=== PATIENT | female | born 1940 | race Hispanic/Latino ===

== ENCOUNTER 2018-11-02 17:35 | Inpatient (IN) | payer MEDICARE ==
[~2018-11-02] VITALS: Ht 154.9 cm; Wt 109.3 kg
[~2018-11-02 17:35] MED LIST: ACETAMINOPHEN325 M1; ALLEGRA ALLERGY60 MG PO; ALPRAZOLAM0.5 MG PO; AMOXICILLIN250 MG PO; ASPIRIN PO; ASPIRIN81 MG PO; BENADRYL ALLERG25 MG PO; BENICAR HCT 201 EACH; BENICAR5 MG PO; BIOFLEX TABLET1 EACH PO; DICLOFENAC SODI50 MG PO; EFFIENT10 MG PO; FISH OIL PO; FLECTOR1 EACH PO; FLONASE; GLIMEPIRIDE2 MG PO; GLIPIZIDE ER2.5 MG PO; GLIPIZIDE5 MG PO; ISOSORBIDE MONO30 MG PO; LANTUS100 UNIT/1; LANTUS100 UNIT/1 SQ; LANTUS100 UNITS/; LANTUS100 UNITS/ SQ; LASIX40 MG PO; LEVAQUIN500 MG PO; LISINOPRIL20 MG PO; LOSARTAN POTAS100 MG PO; LOSARTAN-HCTZ1 EAC1 PO; LOSARTAN-HCTZ1 EACH PO; LYRICA50 MG PO; MEGARED PO; METFORMIN HCL500 MG PO; MONTELUKAST SOD10 MG PO; MVI PO; NITROGLYCERIN0.4 MG SL; NITROSTAT0.4 MG SL; POTASSIUM CHLO10 ME1 PO; PREDNISONE10 MG PO; SINGULAIR10 MG PO; TUMS200 MG PO; TURMERIC PO; VENTOLIN HFA18 GM INH
--- OUTSIDE RECORDS SUMMARY | 2018-11-02 17:38 | XMS REPORT ---
Author Author [facility] Address Unknown Phone Unavailable Care Team Providers Care Table Operator Name Role Phone Rafat ISABEL Unavailable Unavailable Problems This patient has no known problems. Allergies, Adverse Reactions, Alerts This patient has no known allergies or adverse reactions. Medications This patient has no known medications. Results Test Description Test Time Test Comments Text Results Atomic Results Result Comments FOOT LEFT COMPLETE [place] [address] Patient Name: GAURAV ESCOBEDO MR #: [id number] : 1940 Age/Sex: 76/F Req #: [id number] Adm Physician: Ordered by: LULA ISABEL MD Report #: [id number] Location: ER Room/Bed: Procedure: [id number] DX/FOOT LEFT COMPLETE Exam Date: 02/02/17 Exam Time: 1210 REPORT STATUS: Signed Left foot - 3 views HISTORY: Pain. COMPARISON: None available. FINDINGS: Bones: No acute displaced fracture. No expansile lytic or sclerotic lesion. Joints: The joint spaces are well-maintained. No dislocation. Soft tissues: The soft tissues appear unremarkable. IMPRESSION: No acute radiographic abnormality. Signed by: Dr. Ban Davis M.D. on 02/02/2017 12:31 PM Dictated By: BAN DAVIS MD 1231 Transcribed By: HA on 02/02/17 1231 COPY TO: LULA ISABEL MD ANKLE 3+ VIEWS LEFT [place] [address] Patient Name: GAURAV ESCOBEDO MR #: [id number] : 1940 Age/Sex: 76/F Req #: [id number] Adm Physician: Ordered by: LULA ISABEL MD Report #: [id number] Location: ER Room/Bed: Procedure: [id number] DX/ANKLE 3+ VIEWS LEFT Exam Date: 02/02/17 Exam Time: 1210 REPORT STATUS: Signed Left Ankle - 3 views HISTORY: Pain. COMPARISON: None available. FINDINGS: Bones: No acute displaced fracture. No expansile lytic or sclerotic lesion. Joints: The joint spaces are well- maintained. No dislocation. Soft tissues: The soft tissues appear unremarkable. IMPRESSION: No acute radiographic abnormality. Signed by: Dr. Ban Davis M.D. on 02/02/2017 12:32 PM Dictated By: BAN DAVIS MD 1232 Transcribed By: HA on 02/02/17 1232 COPY TO: LULA ISABEL MD
[2018-11-02] MEDS ORDERED: METHYLPREDNISOLONE SOD SUCC 125 MG/2ML VIAL IV ONE ×2 (17:45→18:45)
[2018-11-02] MEDS ORDERED: ALBUTEROL/IPRATROPIUM 3 ML NEB NEB ONE (17:45)
--- NOTE | 2018-11-02 18:37 | Diagnostic Imaging Report ---
EXAMINATION: CHEST SINGLE (PORTABLE) COMPARISON: None INDICATION: Shortness of breath for 2 weeks ^SOB ^[id number] ^1800 DISCUSSION: Frontal view of the chest obtained at 1807 hours. HEART AND MEDIASTINUM: The heart is enlarged LINES: None. LUNGS: Pulmonary vasculature is prominent. Lung volumes are diminished with bibasilar atelectasis or infiltrate. PLEURA: No pleural effusion or pneumothorax. BONES AND SOFT TISSUES: Nonspecific inferior subluxation of the right humeral head. This may be positional. No focal osseous lesion. The soft tissues are normal. IMPRESSION: Cardiomegaly and vascular congestion. Bibasilar atelectasis or infiltrate. Please correlate with PA and lateral chest x-ray if clinically feasible. Signed by: Dr. Moody Herrera MD on 11/02/2018 6:34 PM
[2018-11-02 18:58] LABS: BASOPHILS % 0.4 % (0.0-1.0); EOSINOPHILS # (AUTO) 0.3 (0.0-0.4); EOSINOPHILS % 2.4 % (0.0-6.0); HEMATOCRIT 38.1 % (34.2-44.1); HEMOGLOBIN 12.4 g/dL (12.0-16.0); LYMPHOCYTES # (AUTO) 3.2 (1.0-3.2); MEAN CORPUSCULAR HGB CONC 32.5 g/dL (31-35); MEAN CORPUSCULAR VOLUME 92.3 fL (81-99); MONOCYTES # (AUTO) 0.9 (0.2-0.8); MONOCYTES % 7.7 % (4.4-11.3); NEUTROPHILS # (AUTO) 6.7 (2.1-6.9); NEUTROPHILS % 60.1 % (38.7-80.0); PLATELET COUNT 131 x10e3/uL (140-360); RED BLOOD COUNT 4.13 x10e6/uL (3.6-5.1); RED CELL DISTRIBUTION WIDTH 13.9 % (11.7-14.4)
[2018-11-02] MEDS ORDERED: CEFTRIAXONE SOD 1 GM/NS 50 ML 50 ML IV SCH (19:15)
[2018-11-02 19:16] LABS: ALANINE AMINOTRANSFERASE 13 IU/L (0-55); ALBUMIN 3.5 g/dL (3.5-5.0); ALBUMIN/GLOBULIN RATIO 1.1 (0.8-2.0); ALKALINE PHOSPHATASE 77 IU/L (40-150); ANION GAP 17.1 mmol/L (8-16); BLOOD UREA NITROGEN 19 mg/dL (7-26); BUN/CREATININE RATIO 23 (6-25); CALCIUM 9.3 mg/dL (8.4-10.2); CARBON DIOXIDE 23 mmol/L (22-29); CHLORIDE 103 mmol/L (98-107); CREATINE KINASE 27 IU/L (29-168); CREATININE, SERUM 0.83 mg/dL (0.57-1.11); EST GLOMERULAR FILTRATION RATE > 60 ML/MIN (60-); GLUCOSE 228 mg/dL (74-118); POTASSIUM 4.1 mmol/L (3.5-5.1); SODIUM 139 mmol/L (136-145)
[2018-11-02] MEDS ORDERED: AZITHROMYCIN 500MG/NS 250 ML 250 ML IV SCH (19:30)
[2018-11-02] MEDS ORDERED: DOXYCYCLINE 100MG/NS 100ML 100 ML IV SCH (19:45)
[2018-11-02] MEDS ORDERED: CLONIDINE HCL0.2 MG PO (20:05)
[2018-11-02] MEDS ORDERED: DOXAZOSIN MESYLA2 MG PO (20:05)
[2018-11-02] MEDS ORDERED: AZITHROMYCIN250 MG PO (20:06)
[2018-11-02] MEDS ORDERED: CEPHALEXIN500 MG PO (20:06)
[2018-11-02] MEDS ORDERED: GLUCOSAMINE1000 MG PO (20:07)
[2018-11-02] MEDS: SODIUM CHLORIDE 0.9% 1000ML 1,000 ML IV SCH (20:16)
[2018-11-02] MEDS ORDERED: DEXTROSE 50% SYRINGE 50 ML IV PRN (20:30)
[2018-11-02] MEDS: LEVOFLOXACIN 500MG/D5W 100ML 100 ML IV SCH (21:55)
[2018-11-02] MEDS: INSULIN REGULAR, HUMAN 100 UNIT/1 ML 3ML VIAL SQ SCH (22:28)
--- NOTE | 2018-11-02 22:31 | NUR ---
SPOKE TO DR. CEVALLOS REGARDING PT BP READING 206/84. NEW ORDERS FOR BP MEDS RECEIVED.
[2018-11-02] MEDS: HYDRALAZINE HCL 25 MG TAB PO SCH (23:00)
[2018-11-02 23:09] VITALS: BP 206/84
[2018-11-02] MEDS ORDERED: GLUCOSAMINE CH1 EAC1 PO (23:23)
[2018-11-02] MEDS ORDERED: CINNAMON500 MG PO (23:23)
[2018-11-02] MEDS ORDERED: TURMERIC PO (23:23)
[2018-11-02] MEDS ORDERED: CENTRUM COMPLE1 EACH PO (23:23)
[2018-11-03] VITALS (7 sets, daily range): BP systolic 152–181; BP diastolic 65–77
[2018-11-03] MEDS: HYDRALAZINE HCL 20 MG/ML VIAL IV PRN (01:12)
[2018-11-03] MEDS ORDERED: XANAX0.25 MG PO (02:06)
[2018-11-03 03:23] LABS: CREATINE KINASE 50 IU/L (29-168)
[2018-11-03 03:27] LABS: BASOPHILS % 0.1 % (0.0-1.0); HEMATOCRIT 37.7 % (34.2-44.1); HEMOGLOBIN 12.7 g/dL (12.0-16.0); LYMPHOCYTES # (AUTO) 0.7 (1.0-3.2); LYMPHOCYTES % 8.3 % (18.0-39.1); MEAN CORPUSCULAR HEMOGLOBIN 30.4 pg (28-32); MEAN CORPUSCULAR HGB CONC 33.7 g/dL (31-35); MEAN CORPUSCULAR VOLUME 90.2 fL (81-99); MONOCYTES # (AUTO) 0.1 (0.2-0.8); MONOCYTES % 0.9 % (4.4-11.3); NEUTROPHILS # (AUTO) 7.8 (2.1-6.9); NEUTROPHILS % 90.1 % (38.7-80.0); PLATELET COUNT 196 x10e3/uL (140-360); RED BLOOD COUNT 4.18 x10e6/uL (3.6-5.1); RED CELL DISTRIBUTION WIDTH 13.6 % (11.7-14.4)
[2018-11-03 03:38] LABS: ALANINE AMINOTRANSFERASE 13 IU/L (0-55); ALBUMIN 3.5 g/dL (3.5-5.0); ALBUMIN/GLOBULIN RATIO 1.1 (0.8-2.0); ALKALINE PHOSPHATASE 65 IU/L (40-150); BLOOD UREA NITROGEN 14 mg/dL (7-26); BUN/CREATININE RATIO 20 (6-25); CALCIUM 9.4 mg/dL (8.4-10.2); CARBON DIOXIDE 24 mmol/L (22-29); CHLORIDE 100 mmol/L (98-107); CREATININE, SERUM 0.71 mg/dL (0.57-1.11); EST GLOMERULAR FILTRATION RATE > 60 ML/MIN (60-); GLUCOSE 220 mg/dL (74-118); SODIUM 133 mmol/L (136-145)
[2018-11-03] MEDS: CLONIDINE HCL 0.2 MG TAB PO SCH ×2 (04:50→12:16)
[2018-11-03] MEDS ORDERED: CLONIDINE HCL 0.2 MG TAB PO SCH (06:00)
[2018-11-03] MEDS: HYDRALAZINE HCL 25 MG TAB PO SCH ×3 (06:30→16:42)
--- NOTE | 2018-11-03 06:55 | Diagnostic Imaging Report ---
EXAMINATION: CHEST SINGLE (PORTABLE) INDICATION: Short of breath COMPARISON: None FINDINGS: AP view TUBES and LINES: None. LUNGS: Lungs are not well inflated. There is mild prominence of the central pulmonary vasculature, consistent with pulmonary venous congestion. PLEURA: No pleural effusion or pneumothorax. HEART AND MEDIASTINUM: The cardiomediastinal silhouette is mildly enlarged. Aortic arch calcifications. BONES AND SOFT TISSUES: No acute osseous lesion. Soft tissues are unremarkable. UPPER ABDOMEN: No free air under the diaphragm. IMPRESSION: Unchanged exam with mild cardiomegaly and pulmonary vascular congestion. Signed by: Tae Campo DO on 11/03/2018 6:52 AM
[2018-11-03] MEDS: ALBUTEROL/IPRATROPIUM 3 ML NEB NEB PRN ×2 (06:57→19:27)
--- NOTE | 2018-11-03 07:04 | NUR ---
H&P cc: sob HPI; 78yoF, PCP , developed sob, went to PCP, given 2 antibiotics, worse, so came to ED, found to have PNA. PMH: COPD, STEMI/CAD s/p stent, HTN, HLD, DM, GERD, former smoker PShx: Hysterectomy, ankle, cyst removal from breast, coronary stent, knee alleriges; see emr fh/Sh; ; quit cigs in 1993 meds; see MAR ROS no f/c/s/N/V/D/VALERA/vision changes/skin rash/back pain/dizziness V/S; revd PE: tired appearing anicteric ns1s2 Reduced BS; no w soft nt nd no e/t skin dry flat affect a&ox3; crowe labs/med revd A/P: PNA Former smoker COPD CAD with hx stent HTN HLD GERD DM- check hab1c/lipids pro; lovenox; pepcid dispo; Franklin Zamarripa MD, PhD
--- NOTE | 2018-11-03 07:17 | NUR ---
RECEIVED PATIENT AWAKE RESTING IN BED NO SIGNS OF DISTRESS. BED LOW, WHEELS LOCKED, SIDE RAILS X2. CALL LIGHT IN REACH WILL CONTINUE TO MONITOR PATIENT.
[2018-11-03 07:39] LABS: CHOL/HDL RATIO 3.5 (3.0-3.6)
[2018-11-03] MEDS: SODIUM CHLORIDE 0.9% 1000ML 1,000 ML IV SCH ×2 (08:34→21:54)
[2018-11-03] MEDS: FAMOTIDINE 20 MG TAB PO SCH ×2 (08:56→16:58)
[2018-11-03] MEDS: DOXAZOSIN MESYLATE 2 MG TAB PO SCH (08:56)
[2018-11-03] MEDS: MULTIVITAMINS/MINERALS TAB PO SCH (08:56)
[2018-11-03] MEDS: INSULIN REGULAR, HUMAN 100 UNIT/1 ML 3ML VIAL SQ SCH ×4 (08:59→21:05)
[2018-11-03] MEDS: ALPRAZOLAM 0.25 MG TAB PO SCH ×2 (08:59→21:15)
--- NOTE | 2018-11-03 09:15 | NUR ---
PATIENT A/O X3, EVEN RESPIRATIONS WHEN RESTING, SOB ON EXERTION. PATIENT ON 2LNC 98%. LUNG SOUNDS CLEAR TO AUSCULTATION. LEFT HAND [address] IV INTACT AND PATENT. TELEMETRY #4 SR. EDEMA TO BLE 1+. NO PAIN OR DISCOMFORT AT THIS TIME. NOTIFIED PATIENT TO CALL NURSE FOR ASSISTANCE. CALL LIGHT IN REACH WILL CONTINUE TO MONITOR PATIENT.
[2018-11-03 10:55] LABS: CREATINE KINASE MB 6.7 ng/mL (0-5.0)
--- NOTE | 2018-11-03 13:13 | NUR ---
ARACELIS FROM [facility] DISCHARGE PLANNING CALLED TO GET UPDATE ON PT SHE STATES IF ANY NEEDS FOR DISCHARGE PLANNING ASSISTANCE TO PLEASE CONTACT HER AT [phone]
--- NOTE | 2018-11-03 16:36 | NUR ---
MANUALLY CHECKED PATIENTS HR. PATIENTS HR 48-50. PAGED DR. CEVALLOS. ORDER TO D/C CLONIDINE AND NEW ORDER FOR ISOSORBIDE DINITRATE 10 MG Q12. NEW ORDERS IMPLEMENTED.
[2018-11-03] MEDS: ENOXAPARIN SOD INJ 40 MG/0.4 ML SYR SC SCH (16:58)
[2018-11-03] MEDS: LEVOFLOXACIN 500MG/D5W 100ML 100 ML IV SCH (16:58)
[2018-11-03] MEDS: FUROSEMIDE INJ 10 MG/ML 2 ML VIAL IV SCH (16:58)
[2018-11-03] MEDS: ISOSORBIDE DINITRATE 20 MG TAB PO SCH (17:09)
[2018-11-03] MEDS: INSULIN GLARGINE 100 UNITS/ML VIAL SQ SCH (21:05)
[2018-11-04] VITALS (8 sets, daily range): BP systolic 128–178; BP diastolic 54–74
[2018-11-04] MEDS: HYDRALAZINE HCL 25 MG TAB PO SCH ×5 (06:01→23:38)
[2018-11-04] MEDS: ISOSORBIDE DINITRATE 20 MG TAB PO SCH ×2 (06:02→17:09)
[2018-11-04] MEDS: INSULIN REGULAR, HUMAN 100 UNIT/1 ML 3ML VIAL SQ SCH ×4 (07:30→21:58)
--- NOTE | 2018-11-04 07:33 | NUR ---
IM- progress yaneli O/N no events ROS no f/c/s/N/V/D/VALERA/vision changes/skin rash/back pain/dizziness V/S; revd PE: tired appearing; Cough with deep inspiration anicteric ns1s2 Reduced BS; no w soft nt nd no e/t skin dry flat affect a&ox3; crowe labs/med revd A/P: PNA Former smoker COPD CAD with hx stent HTN HLD GERD DM- check hab1c/lipids pro; lovenox; pepcid dispo; Hba1c/LDL 7.2/120; mild bradycardia- stopped clonidine; use nitrate and hydralazine; control BP. Continue treatement for Bronchopneumonia- cough improving; remains on O2 for support; continue antibiotics; Franklin Zamarripa MD, PhD
[2018-11-04] MEDS: FUROSEMIDE INJ 10 MG/ML 2 ML VIAL IV SCH (09:18)
[2018-11-04] MEDS: FAMOTIDINE 20 MG TAB PO SCH ×2 (09:18→17:09)
[2018-11-04] MEDS: MULTIVITAMINS/MINERALS TAB PO SCH (09:20)
[2018-11-04] MEDS: DOXAZOSIN MESYLATE 2 MG TAB PO SCH (09:20)
[2018-11-04] MEDS: ALPRAZOLAM 0.25 MG TAB PO SCH (09:20)
--- NOTE | 2018-11-04 11:35 | NUR ---
PROVIDED YOUTH WALKER TO PATIENT OBTAINED SIGNATURES AND WILL RETURN GREEN FORM TO PACU
--- NOTE | 2018-11-04 14:18 | NUR ---
PT SIGNED CHOICE FOR LIVING [facility] WILL FAX CLINICALS TO COMPANY FOR DISCHARGE TOMORROW
[2018-11-04] MEDS: ENOXAPARIN SOD INJ 40 MG/0.4 ML SYR SC SCH (17:09)
[2018-11-04] MEDS: LEVOFLOXACIN 500MG/D5W 100ML 100 ML IV SCH (17:09)
--- NOTE | 2018-11-04 19:00 | NUR ---
RECEIVED PATIENT IN BEDSIDE REPORT. PATIENT SITTING IN CHAIR AT BEDSIDE. NO PAIN REPORTED. NO S&S OF DISTRESS NOTED. BED LOCKED IN LOWEST POSITION, SIDE RAILS UPX2, CALL LIGHT IN REACH.
[2018-11-04] MEDS: ASPIRIN 81 MG CHEW TAB PO SCH (21:32)
[2018-11-04] MEDS: INSULIN GLARGINE 100 UNITS/ML VIAL SQ SCH (21:58)
[2018-11-05] VITALS (8 sets, daily range): BP systolic 98–169; BP diastolic 50–74
--- NOTE | 2018-11-05 00:08 | NUR ---
PRODUCTION MINER CALLED AND STATED THAT THE PATIENT'S HEART RATE IS 42. UPON ASSESSMENT, THE PATIENT WAS SOUNDLY ASLEEP WITHOUT DISTRESS. SHE WAS WOKEN UP FOR CLOSE OBSERVATION AND HER HEART RATE INCREASE TO 58. BED ALARM ON, CALL LIGHT WITHIN EASY REACH, WILL NOTIFY THE PRIMARY NURSE TO CLOSELY MONITOR THE PATIENT.
--- NOTE | 2018-11-05 00:30 | NUR ---
PATIENT ASSISTED TO TOILET. WALKER USED, STEADY GAIT NOTED. RETURNED TO BED. BED LOCKED IN LOWEST POSITION, SIDE RAILS UPX2, CALL LIGHT IN REACH.
[2018-11-05] MEDS: HYDRALAZINE HCL 20 MG/ML VIAL IV PRN (04:23)
--- NOTE | 2018-11-05 05:34 | NUR ---
IM- progress yaneli O/N no events ROS no f/c/s/N/V/D/VALERA/vision changes/skin rash/back pain/dizziness V/S; revd PE: tired appearing; Cough with deep inspiration anicteric ns1s2 Reduced BS; no w soft nt nd no e/t skin dry flat affect a&ox3; crowe labs/med revd A/P: PNA Former smoker COPD CAD with hx stent HTN HLD GERD DM- check hab1c/lipids pro; lovenox; pepcid dispo; Hba1c/LDL 7.2/120; mild bradycardia- stopped clonidine; use nitrate and hydralazine; control BP. Continue treatement for Bronchopneumonia- cough improving; remains on O2 for support; continue antibiotics; 11/05 improving; elevated HR and low BP. Franklin Zamarripa MD, PhD
[2018-11-05] MEDS ORDERED: TESSALON PERLE100 MG PO (05:37)
[2018-11-05] MEDS ORDERED: LEVAQUIN500 MG PO (05:37)
[2018-11-05] MEDS ORDERED: ISOSORBIDE DINI20 MG PO (05:37)
[2018-11-05] MEDS ORDERED: HYDRALAZINE HCL25 MG PO (05:37)
[2018-11-05] MEDS: HYDRALAZINE HCL 25 MG TAB PO SCH ×3 (06:39→21:25)
[2018-11-05] MEDS: ISOSORBIDE DINITRATE 20 MG TAB PO SCH (06:39)
[2018-11-05] MEDS: INSULIN REGULAR, HUMAN 100 UNIT/1 ML 3ML VIAL SQ SCH ×4 (07:16→21:25)
[2018-11-05] MEDS: FAMOTIDINE 20 MG TAB PO SCH ×2 (07:45→17:23)
--- NOTE | 2018-11-05 08:36 | NUR ---
CALLED [facility] TO CONFIRM IF RECEIVED CLINICALS JOSE STATES HAVING PROBLEM AND TO PLEASE FAX TO [phone], FAXED.
--- NOTE | 2018-11-05 08:44 | NUR ---
KEY FROM [facility] CALLED THEY ARE NOT IN NETWORK WITH THIS PLAN, FAXED TO REACH PT 2ND CHOICE [phone]
[2018-11-05] MEDS: MULTIVITAMINS/MINERALS TAB PO SCH (09:10)
[2018-11-05] MEDS: FUROSEMIDE INJ 10 MG/ML 2 ML VIAL IV SCH (09:10)
[2018-11-05] MEDS: DOXAZOSIN MESYLATE 2 MG TAB PO SCH (09:10)
--- NOTE | 2018-11-05 15:40 | NUR ---
Discontinuing skilled PT services since patient is Mod I in functional mobility. Thank you Addendum: 11/05/18 at 1541 by Rolando casas PT Amended: Links added.
[2018-11-05] MEDS: ALPRAZOLAM 0.25 MG TAB PO SCH ×2 (16:20→22:31)
[2018-11-05] MEDS: LEVOFLOXACIN 500MG/D5W 100ML 100 ML IV SCH (17:23)
[2018-11-05] MEDS: ENOXAPARIN SOD INJ 40 MG/0.4 ML SYR SC SCH (17:23)
--- NOTE | 2018-11-05 19:24 | NUR ---
Bedside report walking rounds complete. Pt resting in bed and in no apparent distress. All safety measures ensured and pt call castillo near.
[2018-11-05] MEDS ORDERED: ACETAMINOPHEN 325 MG TAB PO PRN (20:30)
[2018-11-05] MEDS: ASPIRIN 81 MG CHEW TAB PO SCH ×2 (21:00→22:32)
[2018-11-05] MEDS: INSULIN GLARGINE 100 UNITS/ML VIAL SQ SCH (21:25)
--- NOTE | 2018-11-05 21:45 | NUR ---
Pt c/o severe headache. Tylenol 650mg po given. Pt started to cry and become anxious from headache. I advised pt to remain calm, breathe and give the medication time to work. Pt given ice pack and 02 2L NC placed. Will continue to monitor pt.
[2018-11-05] MEDS ORDERED: HYDRALAZINE HCL 25 MG TAB PO SCH (22:00)
--- NOTE | 2018-11-05 22:35 | NUR ---
Pt still c/o severe headache. Pt c/o SOB as well. Pt still on 2L NC and HOB elevated to 90 degrees. Pt states she has anxiety. Encouraged pt to remain calm and breathe to help with her headache and anxiety. I explained to pt that she also has to give the medication time to work. Informed charge nurse who also came to assess the pt. Pt given Xanax 0.25mg and additional ice pack for comfort. Pt has extensive allergies and unable to have many medications. Contacted Dr. Zamarripa to see if pt able to have anything else for headache and awaiting contact back. Will continue to monitor pt.
--- NOTE | 2018-11-05 22:39 | NUR ---
Cardiology Consult Dictation# [id number]
--- NOTE | 2018-11-06 00:10 | NUR ---
Pt states her headache is "better but still there a little". Pt states Xanax helped. Will continue to monitor pt.
[2018-11-06 00:13] VITALS: BP 161/56
[2018-11-06 04:02] VITALS: BP 122/58
--- NOTE | 2018-11-06 04:43 | Consultation ---
DATE OF CONSULTATION: 11/05/2018 Cardiology Consultation REQUESTING PHYSICIAN: Franklin Zamarripa MD. REASON FOR CONSULTATION: Hypertension and tachycardia. HISTORY OF PRESENT ILLNESS: This is a 78-year-old woman with history of diabetes mellitus, hypertension, hyperlipidemia, anxiety, and obesity, who presented to [facility] with complaints of shortness of breath. The patient reports that she has been having a sinus infection for the last two weeks. She developed shortness of breath on Friday and was seen by her primary physician and prescribed antibiotics. Her symptoms did not improve, so she presented to the ER for further evaluation. Chest x-ray revealed cardiomegaly and vascular congestion as well as bibasilar atelectasis or infiltrate. She was admitted to [facility] for treatment of pneumonia and started on IV antibiotics. The patient's blood pressure has been labile during admission and she was noted to become more tachycardic today for which Cardiology is consulted for evaluation and management. The patient denies any chest pain, but does endorse lower extremity edema as well as orthopnea and PND. REVIEW OF SYSTEMS: Negative except as per HPI. PAST MEDICAL HISTORY: 1. Coronary artery disease with prior stent. 2. Hypertension. 3. Hyperlipidemia. 4. Diabetes mellitus. 5. Anxiety. 6. Chronic obstructive pulmonary disease. 7. Obesity. PAST SURGICAL HISTORY: 1. Hysterectomy. 2. Ankle surgery. 3. Knee surgery. ALLERGIES: PLEASE SEE EMR. MEDICATIONS: Please see medication reconciliation. SOCIAL HISTORY: Prior smoker. FAMILY HISTORY: Noncontributory to current illness. PHYSICAL EXAMINATION: VITAL SIGNS: Temperature 98.4 degrees, pulse 104, respiratory rate 16, blood pressure 166/74, and oxygen saturation 95%. GENERAL: Obese woman, in no acute distress. Anxious appearing. HEENT: Normocephalic, atraumatic. Pupils equal. No scleral icterus. NECK: Supple. No thyromegaly or cervical lymphadenopathy. No carotid bruits. LUNGS: Clear to auscultation bilaterally. No wheezes or crackles. CARDIOVASCULAR: Normal rate, regular rhythm. No murmur. Normal S1, S2. ABDOMEN: Soft, nontender. EXTREMITIES: 1+ pitting edema. LABORATORY DATA: WBC 8.67, hemoglobin 12.7, hematocrit 37.7, and platelets 196. Sodium 132, potassium 4, chloride 100, CO2 of 24, BUN 14, and creatinine 0.71. EKG; sinus tachycardia, LVH with repolarization abnormality. Prior EKG, sinus bradycardia, cannot rule out anterior infarct, ST and T-wave abnormality, consider inferior ischemia. IMPRESSION: 1. Pneumonia. 2. Sinus tachycardia. 3. Hypertension, poorly controlled. 4. Coronary artery disease with prior stent. 5. Hypertension and hyperlipidemia. 6. Diabetes mellitus. 7. Anxiety. 8. Chronic obstructive pulmonary disease. 9. Obesity. RECOMMENDATIONS: Monitor the patient closely on telemetry. The patient's rhythm appears to be sinus tachycardia likely physiologic response to the patient's illness. We will continue to monitor closely. Titrate hydralazine given the patient's poor blood pressure control. The patient has multiple allergies to antihypertensive therapy in the past, which makes finding a good antihypertensive regimen difficult for the patient. Continue doxazosin for now. Increase hydralazine and assess response. BNP is elevated. Agree with continued IV diuresis. She would need to be transitioned to Lasix 40 mg p.o. daily upon discharge. Keep the patient off clonidine for now. Continue current cardiac medications otherwise. The patient has listed allergies to simvastatin and atorvastatin. Further discussion of cholesterol lowering medications as an outpatient. Thank you for this consult. We will continue to follow. MD CRYSTAL Mead/JADA /[id number] MTDLiliana
[2018-11-06] MEDS: HYDRALAZINE HCL 25 MG TAB PO SCH (06:34)
--- NOTE | 2018-11-06 06:48 | NUR ---
D/C SUMMARY PRINCIPAL DX PNA BRADYCARDIA- MILD SECONDARY DXFormer smoker COPD CAD with hx stent HTN HLD GERD DM- check hab1c/lipids pro; lovenox; pepcid dispo; Hba1c/LDL 7.2/120; mild bradycardia- stopped clonidine; use nitrate and hydralazine; control BP. Continue treatement for Bronchopneumonia- cough improving; remains on O2 for support; continue antibiotics; 11/05 improving; elevated HR and low BP. 11/06 d/c planning; D/C HOME STABLE F/U PCP 1 WEEK D/C>35MINS Franklin Zamarripa MD, PhD
[2018-11-06] MEDS ORDERED: FUROSEMIDE40 MG PO (06:52)
[2018-11-06] MEDS ORDERED: TRAMADOL HCL 50 MG TAB PO PRN (07:00)
[2018-11-06] MEDS ORDERED: ACETAMIN/BUTALBITAL/CAFFEINE TAB PO PRN (07:00)
--- NOTE | 2018-11-06 07:07 | NUR ---
RECEIVED PT LYING IN BED WITH EYES CLOSED, RESP EVEN AND UNLABORED. CALL LIGHT WITHIN REACH.
--- NOTE | 2018-11-06 07:26 | NUR ---
Bedside report and walking rounds complete with day shift RN
[2018-11-06] MEDS: INSULIN REGULAR, HUMAN 100 UNIT/1 ML 3ML VIAL SQ SCH ×2 (07:30→11:30)
[2018-11-06 07:36] VITALS: BP 117/50
[2018-11-06 07:45] VITALS: BP 117/50
[2018-11-06 07:54] LABS: BASOPHILS # (AUTO) 0.1 (0.0-0.1); BASOPHILS % 0.5 % (0.0-1.0); EOSINOPHILS # (AUTO) 0.3 (0.0-0.4); EOSINOPHILS % 3.2 % (0.0-6.0); HEMATOCRIT 37.3 % (34.2-44.1); HEMOGLOBIN 12.3 g/dL (12.0-16.0); LYMPHOCYTES # (AUTO) 2.4 (1.0-3.2); LYMPHOCYTES % 24.2 % (18.0-39.1); MONOCYTES % 9.6 % (4.4-11.3); NEUTROPHILS # (AUTO) 6.2 (2.1-6.9); NEUTROPHILS % 62.1 % (38.7-80.0); PLATELET COUNT 182 x10e3/uL (140-360); RED CELL DISTRIBUTION WIDTH 13.9 % (11.7-14.4)
[2018-11-06 08:09] LABS: ANION GAP 11.5 mmol/L (8-16); BLOOD UREA NITROGEN 23 mg/dL (7-26); BUN/CREATININE RATIO 32 (6-25); CALCIUM 9.2 mg/dL (8.4-10.2); CARBON DIOXIDE 28 mmol/L (22-29); CHLORIDE 104 mmol/L (98-107); CREATININE, SERUM 0.72 mg/dL (0.57-1.11); EST GLOMERULAR FILTRATION RATE > 60 ML/MIN (60-); GLUCOSE 113 mg/dL (74-118); POTASSIUM 4.5 mmol/L (3.5-5.1); SODIUM 139 mmol/L (136-145)
[2018-11-06] MEDS: MULTIVITAMINS/MINERALS TAB PO SCH (08:52)
[2018-11-06] MEDS: FUROSEMIDE INJ 10 MG/ML 2 ML VIAL IV SCH (08:52)
[2018-11-06] MEDS: FAMOTIDINE 20 MG TAB PO SCH (08:52)
[2018-11-06] MEDS: DOXAZOSIN MESYLATE 2 MG TAB PO SCH (08:52)
[2018-11-06] MEDS ORDERED: HYDRALAZINE HCL25 MG PO (10:33)
[2018-11-06] MEDS ORDERED: CARVEDILOL3.125 MG PO (10:34)
[2018-11-06] MEDS ORDERED: XARELTO20 MG PO (10:34)
--- NOTE | 2018-11-06 10:36 | NUR ---
SPOKE TO DILLON MOREJON TO D/C PATIENT HOME. (CARDIOLOGY) ALSO AGREED TO D/C PATIENT HOME.
[2018-11-06 11:39] VITALS: BP 149/66
--- NOTE | 2018-11-06 11:40 | Progress Note ---
DATE: 11/06/2018 Cardiology Progress Note SUBJECTIVE: The patient denies chest pain or shortness of breath. OBJECTIVE: VITAL SIGNS: Temperature 97 degrees, pulse 75, respiratory rate 15, blood pressure 117/50, oxygen saturation 93% on room air. GENERAL: Awake, alert, no acute distress. LUNGS: Clear to auscultation bilaterally. No wheezes or crackles. CARDIOVASCULAR: Normal rate, regular rhythm. No murmur. Normal S1, S2. ABDOMEN: Soft, nontender. EXTREMITIES: 1+ pitting edema. CARDIAC MEDICATIONS: Furosemide 20 mg IV daily, doxazosin 4 mg p.o. daily, hydralazine 50 mg p.o. t.i.d., aspirin 81 mg p.o. daily. LABORATORY DATA: WBC 10.02, hemoglobin 12.3, hematocrit 37.3, platelets 182. Sodium 139, potassium 4.5, chloride 104, CO2 of 28, BUN 23, creatinine 0.72. TELEMETRY: Normal sinus rhythm with PVCs, episode of atrial fibrillation with rapid ventricular response overnight. IMPRESSION: 1. Pneumonia. 2. Sinus tachycardia. 3. Paroxysmal atrial fibrillation with rapid ventricular response. 4. Hypertension, poorly controlled. 5. Coronary artery disease with prior stent. 6. Hypertension. 7. Hyperlipidemia. 8. Diabetes mellitus. 9. Anxiety. 10. Chronic obstructive pulmonary disease. 11. Obesity. RECOMMENDATIONS: The patient had atrial fibrillation with rapid ventricular response overnight. However, the patient has allergies documented to metoprolol and verapamil. We will attempt carvedilol. She was not able to state what her allergy to metoprolol was. We will monitor closely. The patient's CHADS-VASc score is elevated. Start Xarelto for CVA prophylaxis. Given addition of carvedilol, we will decrease hydralazine, keep patient on doxazosin. Continue current cardiac medications for now. The patient has allergies listed to simvastatin and atorvastatin. Further discussion of cholesterol lowering medications as an outpatient. She also describes carotid artery disease, further evaluation as an outpatient. Please have the patient follow up with Dr. Bouren in two weeks. Thank you for this consult. We will continue to follow. Cyndi Murphy MD ABS/MODL /[id number]
--- NOTE | 2018-11-06 12:50 | NUR ---
EDUCATED ABOUT IMM, SIGNED, FILED IN CHART, WITH COPY LEFT WITH FAMILY AT BEDSIDE.
--- NOTE | 2018-11-06 13:00 | NUR ---
PIV REMOVED WITH TIP INTACT. RX, ALL PERSONAL BELONGINGS AND D/C INSTRUCTIONS IN HAND AT TIME OF D/C. ESCORTED VIA WC TO FRONT LOBBY DOOR WHERE AWAITED IN PRIVATE AUTO, SAFELY TRANSFERRED INTO AUTO.
[2018-11-06] MEDS ORDERED: HYDRALAZINE HCL 25 MG TAB PO SCH (15:00)
[2018-11-06] MEDS ORDERED: RIVAROXABAN 20 MG TABLET PO SCH (17:00)
[2018-11-06] MEDS ORDERED: CARVEDILOL 3.125 MG TAB PO SCH (17:00)
== END 2018-11-06 13:00 | disposition home health service (06) | DRG 194 ==
LOC: ER 17:35 → ERHOLD 19:45 → INTOOBSV 19:45 → MED/SURG 21:07 → OBSVTOIN 11-04 08:02
PROVIDERS: ADMIT Internal Medicine; ATTEND Internal Medicine
DX: J18.9 Pneumonia, unspecified organism (principal); Z68.41 Body mass index [BMI] 40.0-44.9, adult; J44.0 Chronic obstructive pulmonary disease with (acute) lower respiratory infection; I25.10 Atherosclerotic heart disease of native coronary artery without angina pectoris; I10 Essential (primary) hypertension; I25.2 Old myocardial infarction; Z95.5 Presence of coronary angioplasty implant and graft; K21.9 Gastro-esophageal reflux disease without esophagitis; Z87.891 Personal history of nicotine dependence; E78.5 Hyperlipidemia, unspecified; E11.9 Type 2 diabetes mellitus without complications; F41.9 Anxiety disorder, unspecified; E66.01 Morbid (severe) obesity due to excess calories; I48.0 Paroxysmal atrial fibrillation; Z79.01 Long term (current) use of anticoagulants; R00.1 Bradycardia, unspecified
CPT/HCPCS: 36415; 71045; 80048; 80053; 80061; 82550; 82553; 82948; 83036; 83735; 83880; 84484; 85025; 93005; 94640; 96372; 97139; 99284; G0378; J0360; J1650; J1815; J1817; J1940; J1956; J2930; J7030

== ENCOUNTER 2018-11-16 20:03 | Inpatient (IN) | payer MEDICARE ==
[~2018-11-16] VITALS: Ht 152.4 cm; Wt 107.7 kg
[~2018-11-16 20:03] MED LIST changes: +AZITHROMYCIN250 MG PO; +CARVEDILOL3.125 MG PO; +CENTRUM COMPLE1 EACH PO; +CEPHALEXIN500 MG PO; +CINNAMON500 MG PO; +CLONIDINE HCL0.2 MG PO; +DOXAZOSIN MESYLA2 MG PO; +FUROSEMIDE40 MG PO; +GLUCOSAMINE CH1 EAC1 PO; +GLUCOSAMINE1000 MG PO; +HYDRALAZINE HCL25 MG PO; +ISOSORBIDE DINI20 MG PO; +TESSALON PERLE100 MG PO; +XANAX0.25 MG PO; +XARELTO20 MG PO
[2018-11-16 20:42] LABS: BASOPHILS # (AUTO) 0.1 (0.0-0.1); BASOPHILS % 0.2 % (0.0-1.0); LYMPHOCYTES % 11.9 % (18.0-39.1); MEAN CORPUSCULAR HEMOGLOBIN 30.6 pg (28-32); MEAN CORPUSCULAR HGB CONC 32.8 g/dL (31-35); MEAN CORPUSCULAR VOLUME 93.4 fL (81-99); MONOCYTES % 3.8 % (4.4-11.3); NEUTROPHILS # (AUTO) 20.2 (2.1-6.9); NEUTROPHILS % 81.4 % (38.7-80.0); PLATELET COUNT 208 x10e3/uL (140-360); RED BLOOD COUNT 1.96 x10e6/uL (3.6-5.1); RED CELL DISTRIBUTION WIDTH 14.3 % (11.7-14.4)
[2018-11-16 20:47] LABS: HEMATOCRIT 18.3 % (34.2-44.1)
[2018-11-16 21:00] LABS: ALANINE AMINOTRANSFERASE 9 IU/L (0-55); ALBUMIN 2.9 g/dL (3.5-5.0); ALBUMIN/GLOBULIN RATIO 1.3 (0.8-2.0); ALKALINE PHOSPHATASE 40 IU/L (40-150); BLOOD UREA NITROGEN 52 mg/dL (7-26); BUN/CREATININE RATIO 60 (6-25); CALCIUM 9.2 mg/dL (8.4-10.2); CARBON DIOXIDE 17 mmol/L (22-29); CHLORIDE 104 mmol/L (98-107); CREATINE KINASE 16 IU/L (29-168); CREATININE, SERUM 0.86 mg/dL (0.57-1.11); EST GLOMERULAR FILTRATION RATE > 60 ML/MIN (60-); GLUCOSE 311 mg/dL (74-118); SODIUM 135 mmol/L (136-145)
[2018-11-16] MEDS ORDERED: SODIUM CHLORIDE 0.9% 250ML 250 ML IV ONE (21:00)
--- NOTE | 2018-11-16 21:05 | NUR ---
PT TO ED RM #6, ATTACHED TO BS/COMPLIANCE CONSULTANT; PT NOW REPORTS BLACK STOOL X2 DAYS
--- NOTE | 2018-11-16 21:10 | NUR ---
CONSENT OBTAINED FOR PICC LINE AND TRANSFUSION OF BLOOD PRODUCTS
[2018-11-16 21:22] LABS: BILIRUBIN,URINE NEGATIVE (NEGATIVE); CLARITY,URINE SL CLOUDY (CLEAR); COLOR,URINE YELLOW (YELLOW); KETONES,URINE TRACE (NEGATIVE); LEUKOCYTE ESTERASE ,URINE NEGATIVE (NEGATIVE); NITRITE,URINE NEGATIVE (NEGATIVE); PROTEIN,URINE DIPSTICK NEGATIVE (NEGATIVE); URINE UROBILINOGEN 0.2 mg/dL (0.2 - 1)
--- NOTE | 2018-11-16 21:22 | Diagnostic Imaging Report ---
EXAMINATION: CHEST SINGLE (PORTABLE) COMPARISON: Chest x-ray 11/03/2018 INDICATION: ^sob, chest pain ^20181116 ^2030 ^Y DISCUSSION: Frontal view of the chest obtained at 2048 hours. HEART AND MEDIASTINUM: The heart is enlarged. The aorta is tortuous LINES: None. LUNGS: The lungs are well inflated and clear. Mild central pulmonary vascular prominence is similar. PLEURA: No pleural effusion or pneumothorax. Stable eventration of the right diaphragm. BONES AND SOFT TISSUES: No focal osseous lesion. The soft tissues are normal. IMPRESSION: Stable cardiomegaly and pulmonary venous hypertension. No acute cardiopulmonary process. Signed by: Dr. Moody Herrera MD on 11/16/2018 9:19 PM
[2018-11-16 21:30] LABS: LYMPHOCYTES % (MANUAL) 7 % (19-48); METAMYELOCYTES % (MANUAL) 1 % (0-0); MONOCYTES % (MANUAL) 1 % (3.4-9.0); NEUTROPHILS % (MANUAL) 91 % (40-74)
[2018-11-16 21:31] LABS: HYPOCHROMASIA SLIGHT; PLATELET ESTIMATE ADEQUATE; PLATELET MORPHOLOGY COMMENT FEW LARGE; RBC MORPHOLOGY COMMENT NORMAL
[2018-11-16 21:34] LABS: AMORPHOUS SEDIMENT,URINE MODERATE (FEW); BACTERIA,URINE FEW /HPF
--- NOTE | 2018-11-16 21:44 | NUR ---
PICC NURSE AT BEDSIDE
[2018-11-16] MEDS ORDERED: ACETAMINOPHEN 1000 MG/100 ML IV STA (22:22)
--- NOTE | 2018-11-16 22:37 | Diagnostic Imaging Report ---
EXAMINATION: CHEST XRAY LINE PLACEMENT COMPARISON: Chest x-ray 2047 hours INDICATION: ^EVAL PICC PLACEMENT ^20181116 ^0 ^Y DISCUSSION: Frontal view of the chest obtained at 2217 hours. HEART AND MEDIASTINUM: Stable cardiomegaly and tortuous aorta LINES: Right PICC line terminates in the SVC without pneumothorax. LUNGS: Minimal bibasilar atelectasis. No interstitial edema. No pneumonia or pulmonary edema. PLEURA: No pleural effusion or pneumothorax. BONES AND SOFT TISSUES: Stable. IMPRESSION: Right PICC line terminates in the SVC without pneumothorax. No new cardiopulmonary findings. Signed by: Dr. Moody Herrera MD on 11/16/2018 10:33 PM
[2018-11-16] MEDS ORDERED: SODIUM CHLORIDE 0.9% 500ML 500 ML ONE (22:39)
--- NOTE | 2018-11-16 22:40 | NUR ---
VERBAL ORDER FROM DR ABDIRIZAK CARRANZA TO USE PICC LINE
[2018-11-16 23:05] LABS: INR 1.49; PROTHROMBIN TIME 18.6 seconds (11.9-14.5)
--- NOTE | 2018-11-16 23:30 | NUR ---
FIRST UNIT OF BLOOD STARTED
--- NOTE | 2018-11-16 23:35 | Diagnostic Imaging Report ---
CT Abdomen and Pelvis without contrast INDICATION: ^BLACK STOOL, ANEMIA, 24K WBC ^Y TECHNIQUE: Thin collimation axial images obtained from the diaphragm to the level of the pubic symphysis without nonionic intravenous contrast. Dose reduction techniques used: Automated exposure control, adjustment of the mAs and/or kVp according to patient size, standardized low-dose protocol, and/or iterative reconstruction technique. RADIATION DOSE: Total DLP: 846.7 mGy*cm Estimated effective dose: (DLP x 0.015 x size factor) mSv CTDIvol has been reviewed. It is below the limits set by the Radiation Protocol Committee (RPC). COMPARISON: None. ABDOMEN FINDINGS: Lung Bases: The heart is enlarged with calcifications of the coronary arteries and aortic valve. Noncalcified nodule in the right middle lobe measures 3 mm. There is bibasilar atelectasis. The descending thoracic aorta is tortuous with mural calcifications throughout. The chowdhury of the heart are visible suggestive of anemia. Liver: Normal in attenuation without soft tissue mass. Punctate calcification in the dome suggestive of a granuloma. Gallbladder: Present and appears normal. No ductal dilatation. Pancreas: Normal attenuation without mass. Spleen: Normal size without mass. Adrenal Glands: No evidence for mass. Kidneys: Right: No renal calculus. No cortical mass or hydronephrosis Left: No renal calculus. No cortical mass or hydronephrosis Lymph Nodes: No enlarged abdominal or periaortic lymph nodes. Aorta: Normal in diameter and diffusely calcified PELVIS FINDINGS: Bowel: Stomach: Normal. Small Bowel: Normal in caliber with normal wall thickness. Large Bowel: Diffuse diverticulosis, particularly of the descending colon and sigmoid colon. No associated inflammation. No significant burden of stool in the large bowel. Appendix: Normal. Bladder: Well distended. There is a droplet of nondependent air at the dome. No mural thickening. Ureters: No ureteral dilatation or calculus.. The uterus is absent. No adnexal mass. Peritoneum/retroperitoneum: No free fluid or fluid collection. Bones: Degenerative changes of the spine. No compression deformities. No lytic or blastic lesions. Soft tissues: Unremarkable. IMPRESSION: 1. Diverticulosis coli. No evidence of acute diverticulitis on this unenhanced CT. 2. No evidence of inflammation loculated fluid collection to suggest abscess. 3. Droplet of nondependent air in the bladder may be the result of interpretation. 4. Atherosclerosis. Suspected anemia. Signed by: Dr. Moody Herrera MD on 11/16/2018 11:31 PM
[2018-11-17] VITALS (12 sets, daily range): BP systolic 113–151; BP diastolic 35–59
[2018-11-17] MEDS ORDERED: ONDANSETRON HCL INJ 2MG/ML 2ML 2 MG/ML VIAL IV PRN (00:15)
[2018-11-17] MEDS ORDERED: DEXTROSE 50% SYRINGE 50 ML IV PRN (00:15)
[2018-11-17] MEDS ORDERED: SODIUM CHLORIDE FLUSH 10 ML SYR INJ PRN (00:15)
[2018-11-17] MEDS: SODIUM CHLORIDE 0.9% 1000ML 1,000 ML IV SCH ×3 (01:31→20:15)
--- NOTE | 2018-11-17 02:04 | NUR ---
Report received from WILLIAM Mann. Patient admitted in unit @0039 by stretcher, Patient alert/oriented x3. Denied pain and on SOB. No respiratory distress noted. Patient continued on 2liters oxygen via nasal canula,Spo2 maintained 100%. Respiration even and unlabored. Patient continued transfusing I unit of blood. Head to toe assessment completed. No skin breakdown noted. Bed in lower position,locked. Call castillo within the reach. Patient instructed to call for help as needed, patient verbalized and understand. Will continue to monitor.
[2018-11-17] MEDS: LEVOFLOXACIN 500MG/D5W 100ML 100 ML IV SCH (02:15)
[2018-11-17] MEDS: FUROSEMIDE INJ 10 MG/ML 2 ML VIAL IV PRN ×2 (02:42→05:56)
[2018-11-17] MEDS ORDERED: SODIUM CHLORIDE 0.9% 250ML 250 ML ONE ×2 (03:31→22:30)
--- NOTE | 2018-11-17 06:48 | NUR ---
H&P cc: sob HPI; 78yoF, PCP , started on xarelto for PAF in Oct 2018, now with fatigue, found to have severe anemia and Pos stool occult blood. PMH: COPD, STEMI/CAD s/p stent, HTN, HLD, DM2, GERD, former smoker, PNA, PAF PShx: Hysterectomy, ankle, cyst removal from breast, coronary stent, knee alleriges; see emr fh/Sh; ; quit cigs in 1993 meds; see MAR ROS no f/c/s/N/V/D/VALERA/vision changes/skin rash/back pain/dizziness V/S; revd PE: tired appearing anicteric ns1s2 Reduced BS; no w soft nt nd no e/t skin dry flat affect a&ox3; crowe labs/med revd A/P: Severe anemia- hold xarelto; ppi; GI consult; GIB- ppi; gi consult; Leukocytosis- empiric levaquin; multiple allergies PAF- BB; no AC at this time Former smoker COPD- O2 prn CAD with hx stent- BB Hypertensive heart ds HLD GERD DM2- check hab1c/lipids; insulin pro; SCD; ppi dispo; GI consult; ppi Franklin Zamarripa MD, PhD
--- NOTE | 2018-11-17 07:12 | NUR ---
Report given to oncoming nurse,walking round done.
[2018-11-17] MEDS: INSULIN REGULAR, HUMAN 100 UNIT/1 ML 3ML VIAL SQ SCH ×4 (07:30→21:12)
[2018-11-17] MEDS: PANTOPRAZOLE 40 MG 10ML VIAL IV SCH ×2 (08:34→16:38)
[2018-11-17] MEDS: FERROUS SULFATE 325 MG TAB PO SCH ×2 (08:34→16:40)
[2018-11-17] MEDS ORDERED: MORPHINE SULFATE 2 MG/ML SYR 1ML IV PRN (09:30)
[2018-11-17] MEDS: ACETAMINOPHEN 1000 MG/100 ML IV PRN ×2 (09:47→18:00)
[2018-11-17] MEDS: CARVEDILOL 3.125 MG TAB PO SCH ×2 (09:47→16:38)
[2018-11-17 12:13] LABS: HEMOGLOBIN 7.3 g/dL (12.0-16.0)
[2018-11-17 12:16] LABS: HEMATOCRIT 21.3 % (34.2-44.1)
[2018-11-17 12:30] LABS: CHOL/HDL RATIO 4.7 (3.0-3.6)
--- NOTE | 2018-11-17 13:50 | NUR ---
Visit made by the Spiritual Care Department Pastoral Visitor, Yani Muhammad. Pt sleeping soundly and no family present. Pastoral Visitor left a card describing availability of motor driver and instructions on how to contact a motor driver. CHARLES ZAFAR Legal Recruiter Spiritual Care Department O: [phone] Pager: [phone] ([phone] number calling from)
--- NOTE | 2018-11-17 15:16 | NUR ---
PT LEAVING FOR PROCEDURE
[2018-11-17] MEDS: SUCRALFATE 1 GM/10 ML SUSP NG SCH ×2 (16:38→21:11)
[2018-11-17] MEDS ORDERED: LIDOCAINE HCL 2% LOCAL INJ 5 ML SDV VIAL INJ ONE (17:44)
[2018-11-17] MEDS ORDERED: PROPOFOL IV EMULSION 10 MG/ML 50 ML VIAL ONE (17:44)
[2018-11-17 19:27] LABS: HEMATOCRIT 20.4 % (34.2-44.1); HEMOGLOBIN 6.8 g/dL (12.0-16.0)
--- NOTE | 2018-11-17 20:15 | NUR ---
Called Dr. Cai. Notified about critical labs Hgb:6.8 MD ordered II units of blood transfusion at this time.
[2018-11-17] MEDS: INSULIN GLARGINE 100 UNITS/ML VIAL SQ SCH (21:12)
[2018-11-17] MEDS: ALPRAZOLAM 0.25 MG TAB PO SCH (21:13)
[2018-11-17] MEDS ORDERED: SODIUM CHLORIDE 0.9% 250ML 250 ML IV NR (21:30)
--- NOTE | 2018-11-17 22:13 | NUR ---
Patient assisted to used bedside commode. Patient tolerated well, No SOB Noted. Assisted to wipe whole body with CHG wipe and changed gown/linen and pads at this time. Will continue to monitor.
--- NOTE | 2018-11-17 22:30 | NUR ---
Transfusing I unit of blood at this time. No reaction noted, patient tolerated well. Will continue to monitor.
[2018-11-18] VITALS (7 sets, daily range): BP systolic 97–150; BP diastolic 30–70
[2018-11-18] MEDS: FUROSEMIDE INJ 10 MG/ML 2 ML VIAL IV PRN ×2 (01:19→06:30)
[2018-11-18] MEDS: LEVOFLOXACIN 500MG/D5W 100ML 100 ML IV SCH ×2 (01:19→23:55)
[2018-11-18] MEDS ORDERED: SODIUM CHLORIDE 0.9% 250ML 250 ML ONE (02:53)
--- NOTE | 2018-11-18 03:00 | NUR ---
Transfusing II unit of blood at this time. No reaction noted, patient tolerated well. Will continue to monitor.
--- NOTE | 2018-11-18 06:09 | NUR ---
IM- progress note O/N no events ROS no f/c/s/N/V/D/VALERA/vision changes/skin rash/back pain/dizziness V/S; revd PE: tired appearing anicteric ns1s2 Reduced BS; no w soft nt nd no e/t skin dry flat affect a&ox3; crowe labs/med revd A/P: Severe anemia- hold xarelto; ppi; GI consult; GIB- ppi; gi consult; Leukocytosis- empiric levaquin; multiple allergies PAF- BB; no AC at this time Former smoker COPD- O2 prn CAD with hx stent- BB Hypertensive heart ds HLD GERD DM2- check hab1c/lipids; insulin pro; SCD; ppi dispo; GI consult; ppi 11/18 s/p 4 U PRBC; f/u repeat labs; Hba1c/LDL 6.3/60; EGD showed gastritis, and gatric ulcers, esophageal ulcers, Hiatal hernia Franklin Zamarripa MD, PhD
[2018-11-18] MEDS ORDERED: ONDANSETRON HCL 4 MG ORAL DISINTEGRATING TAB PO PRN (07:00)
--- NOTE | 2018-11-18 07:00 | NUR ---
Pt received resting in bed. Alert and oriented x4, on 2L NC. Oriented to staff and surroundings. Encouraged to press call castillo if help needed. Pt verbalized understanding of teaching. Call castillo within reach. Will monitor
--- NOTE | 2018-11-18 07:04 | NUR ---
Report given to oncoming nurse, walking round done.
--- NOTE | 2018-11-18 08:03 | Operative Report ---
DATE OF PROCEDURE: 11/17/2018 SURGEON: Itz Cai MD PROCEDURE: EGD with biopsies. INDICATIONS FOR EGD: Anemia, melena. MEDICATION: The patient was done under MAC, please see anesthesiologist's note. PROCEDURE IN DETAIL: With the patient in left lateral decubitus position, a flexible fiberoptic Olympus gastroscope was introduced into the esophagus under direct visualization without any difficulty. There were some patchy erythema noted in distal esophagus. The scope was then advanced with ease into the stomach traversing a small hiatal hernia. Multiple ulcers were noted in the body of the stomach as well as in the fundus and somewhere with stigmata of recent hemorrhage, but there was no active bleeding. Biopsies were obtained. An approximately 1 cm submucosal nodule was noted in the upper body anterior wall and that was biopsied. Several minute ulcers were also noted in the antrum without active bleeding or stigmata of recent hemorrhage. The pylorus was intubated with ease and the scope was advanced all the way to the second portion of the duodenum. Mucosa overlying the proximal second portion appeared to be within normal limits. There were several minute ulcers noted in the duodenal bulb without active bleeding or stigmata of recent hemorrhage. The scope was then withdrawn back into the stomach and retroflexed and previously described ulcers in the fundus were also noted. The scope was then straightened out, it was subsequently withdrawn. The patient tolerated the procedure well. IMPRESSION: 1. Distal esophagitis. 2. Small sliding hiatal hernia. 3. Gastric ulcers, multiple, body and antrum some with stigmata of recent hemorrhage. Biopsies obtained. 4. Approximately 1 cm submucosal nodule, upper body anterior wall, biopsied. 5. Duodenal ulcers, bulb, several, minute without active bleeding. PLAN: Follow up histology. Continue current therapy. Initiate GI soft diet. Itz Cai MD [facility] [place]/MODL /[id number] cc: Franklin Zamarripa MD
[2018-11-18] MEDS: INSULIN REGULAR, HUMAN 100 UNIT/1 ML 3ML VIAL SQ SCH ×4 (08:04→20:09)
[2018-11-18] MEDS: SODIUM CHLORIDE 0.9% 1000ML 1,000 ML IV SCH (08:35)
[2018-11-18] MEDS: CARVEDILOL 3.125 MG TAB PO SCH ×2 (08:35→16:34)
[2018-11-18] MEDS: SUCRALFATE 1 GM/10 ML SUSP NG SCH ×4 (08:35→20:18)
[2018-11-18] MEDS: PANTOPRAZOLE 40 MG 10ML VIAL IV SCH (08:35)
[2018-11-18] MEDS: FERROUS SULFATE 325 MG TAB PO SCH ×2 (08:35→16:34)
--- NOTE | 2018-11-18 08:35 | NUR ---
All meds given as ordered. Call castillo within reach. Will monitor
[2018-11-18 08:47] LABS: HEMATOCRIT 28.7 % (34.2-44.1); HEMOGLOBIN 9.5 g/dL (12.0-16.0)
[2018-11-18 10:54] LABS: ALANINE AMINOTRANSFERASE 19 IU/L (0-55); ALBUMIN/GLOBULIN RATIO 1.3 (0.8-2.0); ALKALINE PHOSPHATASE 43 IU/L (40-150); ANION GAP 12.3 mmol/L (8-16); BLOOD UREA NITROGEN 20 mg/dL (7-26); BUN/CREATININE RATIO 26 (6-25); CALCIUM 8.3 mg/dL (8.4-10.2); CARBON DIOXIDE 26 mmol/L (22-29); CHLORIDE 100 mmol/L (98-107); CREATININE, SERUM 0.78 mg/dL (0.57-1.11); EST GLOMERULAR FILTRATION RATE > 60 ML/MIN (60-); GLUCOSE 192 mg/dL (74-118); POTASSIUM 3.3 mmol/L (3.5-5.1); SODIUM 135 mmol/L (136-145)
--- NOTE | 2018-11-18 12:31 | NUR ---
IMM EXPLAINED TO PT, SIGNED BY PT AND ON CHART COPY TO PT IN CARE TRANSITIONS FOLDER
[2018-11-18 13:12] LABS: HEMATOCRIT 27.2 % (34.2-44.1)
--- NOTE | 2018-11-18 13:39 | NUR ---
Pt c/o "burning in my stomach." Dr. Antonio Cai notified, and Protonix drip ordered. Will follow up
[2018-11-18] MEDS ORDERED: POTASSIUM CHLORIDE 10MEQ EA PO ONE (13:47)
[2018-11-18] MEDS: PANTOPRAZOL 40MG/SOD CHL 0.9% 50 ML IV SCH ×2 (14:13→21:27)
[2018-11-18] MEDS ORDERED: DONNATAL/LIDOCAINE/MAALOX 30 ML SUSP PO ONE (16:06)
[2018-11-18] MEDS: ALPRAZOLAM 0.25 MG TAB PO SCH (16:34)
--- NOTE | 2018-11-18 16:34 | NUR ---
Pt still c/o pain to stomach burning. Dr. Cai called. GI cocktail & Xanax given. Will follow up
--- NOTE | 2018-11-18 17:20 | NUR ---
Pt c/o relief of stomach pain. Call castillo within reach. Will monitor
[2018-11-18 18:24] LABS: HEMATOCRIT 28.2 % (34.2-44.1); HEMOGLOBIN 9.5 g/dL (12.0-16.0)
--- NOTE | 2018-11-18 19:11 | NUR ---
Handoff given to oncoming shift. Pt resting in bed. Call castillo within reach.
[2018-11-18] MEDS: INSULIN GLARGINE 100 UNITS/ML VIAL SQ SCH (20:16)
--- NOTE | 2018-11-19 02:09 | NUR ---
dr Wendy Cai came to see patient in the room. the MD ordered GI cocktail PO q6 PRN for abdominal pain. order carried out.
[2018-11-19] MEDS ORDERED: DONNATAL/LIDOCAINE/MAALOX 30 ML SUSP PO PRN (02:15)
[2018-11-19] MEDS: SODIUM CHLORIDE 0.9% 1000ML 1,000 ML IV SCH ×3 (02:15→17:34)
[2018-11-19 02:47] LABS: BASOPHILS % 0.3 % (0.0-1.0); EOSINOPHILS # (AUTO) 0.5 (0.0-0.4); EOSINOPHILS % 3.5 % (0.0-6.0); HEMATOCRIT 25.9 % (34.2-44.1); HEMOGLOBIN 8.5 g/dL (12.0-16.0); LYMPHOCYTES # (AUTO) 2.5 (1.0-3.2); LYMPHOCYTES % 18.5 % (18.0-39.1); MEAN CORPUSCULAR HEMOGLOBIN 29.5 pg (28-32); MEAN CORPUSCULAR HGB CONC 32.8 g/dL (31-35); MEAN CORPUSCULAR VOLUME 89.9 fL (81-99); MONOCYTES # (AUTO) 0.9 (0.2-0.8); MONOCYTES % 6.7 % (4.4-11.3); NEUTROPHILS # (AUTO) 9.5 (2.1-6.9); NEUTROPHILS % 69.7 % (38.7-80.0); PLATELET COUNT 144 x10e3/uL (140-360); RED BLOOD COUNT 2.88 x10e6/uL (3.6-5.1); RED CELL DISTRIBUTION WIDTH 18.3 % (11.7-14.4)
[2018-11-19] MEDS: PANTOPRAZOL 40MG/SOD CHL 0.9% 50 ML IV SCH ×5 (03:54→22:49)
[2018-11-19 04:19] VITALS: BP 128/61
--- NOTE | 2018-11-19 06:04 | NUR ---
IM- progress note O/N no events ROS no f/c/s/N/V/D/VALERA/vision changes/skin rash/back pain/dizziness V/S; revd PE: tired appearing anicteric ns1s2 Reduced BS; no w soft nt nd no e/t skin dry flat affect a&ox3; crowe labs/med revd A/P: Severe anemia- hold xarelto; ppi; GI consult; GIB- ppi; gi consult; Leukocytosis- empiric levaquin; multiple allergies PAF- BB; no AC at this time Former smoker COPD- O2 prn CAD with hx stent- BB Hypertensive heart ds HLD GERD DM2- check hab1c/lipids; insulin pro; SCD; ppi dispo; GI consult; ppi 11/18 s/p 4 U PRBC; f/u repeat labs; Hba1c/LDL 6.3/60; EGD showed gastritis, and gatric ulcers, esophageal ulcers, Hiatal hernia 11/19 Hb 8.5; f/u BMP. cont PPI gtt; Franklin Zamarripa MD, PhD
[2018-11-19 06:05] LABS: HEMATOCRIT 26.1 % (34.2-44.1); HEMOGLOBIN 8.3 g/dL (12.0-16.0)
[2018-11-19 06:35] LABS: ALANINE AMINOTRANSFERASE 38 IU/L (0-55); ALBUMIN 2.5 g/dL (3.5-5.0); ALBUMIN/GLOBULIN RATIO 1.3 (0.8-2.0); ALKALINE PHOSPHATASE 39 IU/L (40-150); ANION GAP 9.7 mmol/L (8-16); BLOOD UREA NITROGEN 15 mg/dL (7-26); BUN/CREATININE RATIO 21 (6-25); CALCIUM 8.2 mg/dL (8.4-10.2); CARBON DIOXIDE 27 mmol/L (22-29); CHLORIDE 105 mmol/L (98-107); CREATININE, SERUM 0.71 mg/dL (0.57-1.11); EST GLOMERULAR FILTRATION RATE > 60 ML/MIN (60-); GLUCOSE 103 mg/dL (74-118); POTASSIUM 3.7 mmol/L (3.5-5.1); SODIUM 138 mmol/L (136-145)
[2018-11-19 06:58] LABS: FERRITIN 110.34 ng/mL (4.63-204.00)
--- NOTE | 2018-11-19 07:00 | NUR ---
Pt received resting in bed. No c/o pain or SOB noted or voiced. Call castillo within reach. Will monitor
[2018-11-19 07:11] LABS: FOLATE 16.9 ng/mL (7.0-15.4)
[2018-11-19 07:25] VITALS: BP 121/39
[2018-11-19] MEDS: INSULIN REGULAR, HUMAN 100 UNIT/1 ML 3ML VIAL SQ SCH ×4 (07:30→20:40)
[2018-11-19] MEDS: FERROUS SULFATE 325 MG TAB PO SCH ×2 (08:45→17:12)
[2018-11-19] MEDS: CARVEDILOL 3.125 MG TAB PO SCH ×2 (08:45→17:12)
[2018-11-19] MEDS: SUCRALFATE 1 GM/10 ML SUSP NG SCH ×3 (08:45→17:12)
[2018-11-19 12:00] VITALS: BP 138/98
[2018-11-19] MEDS: ALPRAZOLAM 0.25 MG TAB PO SCH (13:03)
--- NOTE | 2018-11-19 13:03 | NUR ---
Pt crying stating that her sister in law was just diagnosed with cancer. Emotional support given. Xanax given as ordered. Will monitor
[2018-11-19 13:10] LABS: HEMATOCRIT 29.3 % (34.2-44.1); HEMOGLOBIN 9.5 g/dL (12.0-16.0)
[2018-11-19] MEDS ORDERED: SODIUM CHLORIDE 0.9% INJ 50 ML BAG IV ONE (15:07)
[2018-11-19 16:10] VITALS: BP 131/74
--- NOTE | 2018-11-19 16:10 | NUR ---
PICC line dressing change done. IV tubing changed. Pt took a shower, and linens changed. Emotional support given. Call castillo within reach. Will monitor
[2018-11-19 17:33] LABS: HEMATOCRIT 29.1 % (34.2-44.1); HEMOGLOBIN 9.3 g/dL (12.0-16.0)
[2018-11-19] MEDS ORDERED: ACETAMINOPHEN 325 MG TAB PO PRN (19:30)
[2018-11-19 20:05] VITALS: BP 160/116
[2018-11-19 20:11] VITALS: BP 160/116
--- NOTE | 2018-11-19 20:12 | NUR ---
patient complained of headache, vitals checked. called and spoke to dr Zamarripa, the MD ordered Tylenol PRN.
[2018-11-19] MEDS: SUCRALFATE 1 GM/10 ML SUSP PO SCH (20:36)
[2018-11-19] MEDS: INSULIN GLARGINE 100 UNITS/ML VIAL SQ SCH (20:40)
--- NOTE | 2018-11-19 23:18 | NUR ---
draw blood and sent o lab for HH check.
[2018-11-19] MEDS: LEVOFLOXACIN 500MG/D5W 100ML 100 ML IV SCH (23:33)
[2018-11-20 00:07] VITALS: BP 107/67
[2018-11-20 00:07] LABS: HEMATOCRIT 25.8 % (34.2-44.1); HEMOGLOBIN 8.4 g/dL (12.0-16.0)
[2018-11-20 04:11] VITALS: BP 127/40
[2018-11-20] MEDS: PANTOPRAZOL 40MG/SOD CHL 0.9% 50 ML IV SCH ×3 (04:22→14:04)
[2018-11-20] MEDS: SODIUM CHLORIDE 0.9% 1000ML 1,000 ML IV SCH ×2 (04:22→14:04)
[2018-11-20 05:25] LABS: BASOPHILS % 0.2 % (0.0-1.0); EOSINOPHILS # (AUTO) 0.5 (0.0-0.4); EOSINOPHILS % 4.6 % (0.0-6.0); HEMATOCRIT 24.7 % (34.2-44.1); LYMPHOCYTES # (AUTO) 1.8 (1.0-3.2); LYMPHOCYTES % 15.3 % (18.0-39.1); MEAN CORPUSCULAR HEMOGLOBIN 29.5 pg (28-32); MEAN CORPUSCULAR HGB CONC 32.4 g/dL (31-35); MEAN CORPUSCULAR VOLUME 91.1 fL (81-99); MONOCYTES # (AUTO) 0.7 (0.2-0.8); MONOCYTES % 5.6 % (4.4-11.3); NEUTROPHILS # (AUTO) 8.6 (2.1-6.9); NEUTROPHILS % 73.7 % (38.7-80.0); PLATELET COUNT 132 x10e3/uL (140-360); RED BLOOD COUNT 2.71 x10e6/uL (3.6-5.1); RED CELL DISTRIBUTION WIDTH 17.9 % (11.7-14.4)
--- NOTE | 2018-11-20 05:47 | NUR ---
D/C summary Principal Dx: Severe anemia- hold xarelto; ppi; GI consult; GIB- ppi; gi consult; Leukocytosis- empiric levaquin; multiple allergies Gastritis Gastric ulcers Esophageal ulcers Hiatal hernia Secondary Dx: PAF- BB; no AC at this time Former smoker COPD- O2 prn CAD with hx stent- BB Hypertensive heart ds HLD GERD DM2- check hab1c/lipids; insulin pro; SCD; ppi dispo; GI consult; ppi 11/18 s/p 4 U PRBC; f/u repeat labs; Hba1c/LDL 6.3/60; EGD showed gastritis, and gatric ulcers, esophageal ulcers, Hiatal hernia 11/19 Hb 8.5; f/u BMP. cont PPI gtt; 11/20 Hb trending down; follow; d/c home stable f/u pcp 1 week and GI 2 weeks d/c>35mins Franklin Zamarripa MD, PhD
--- NOTE | 2018-11-20 06:10 | NUR ---
dr Zamarripa came and saw the patient, ordered HH at noon and he wants to be called for result around 1 pm.
[2018-11-20] MEDS ORDERED: IRON SUCROSE 100 MG in SODIUM CHLORIDE 0.9% 100 ML 100 ML IV SCH (07:00)
[2018-11-20 07:30] VITALS: BP 155/35
[2018-11-20] MEDS: INSULIN REGULAR, HUMAN 100 UNIT/1 ML 3ML VIAL SQ SCH ×2 (07:30→11:53)
[2018-11-20] MEDS: FERROUS SULFATE 325 MG TAB PO SCH (07:48)
[2018-11-20] MEDS: SUCRALFATE 1 GM/10 ML SUSP PO SCH ×2 (07:48→11:21)
[2018-11-20] MEDS: CARVEDILOL 3.125 MG TAB PO SCH (08:00)
[2018-11-20 10:37] LABS: PLATELET ESTIMATE SLIGHTLY DECREASED; PLATELET MORPHOLOGY COMMENT NORMAL; RBC MORPHOLOGY COMMENT ABNORMAL
[2018-11-20 11:30] VITALS: BP 139/70
[2018-11-20 12:54] LABS: HEMOGLOBIN 8.9 g/dL (12.0-16.0)
--- NOTE | 2018-11-20 13:15 | NUR ---
INFORMED DR CEVALLOS H/H RESULTS, ORDERS RECEIVED AND ENTERED
--- NOTE | 2018-11-20 15:47 | NUR ---
ORDERS TO ARRANGE HOME HEALTH CARE CHOICE LETTER SIGNED FOR [facility] PH: [phone] FAX: [phone] CHOICE LETTER ON CHART AND COPY TO PT CALLED AND SPOKE WITH KIMBERLY AT [facility] WHO STATES PT WAS ON SERVICE WITH THEM AFTER LAST DISCHARGED FROM HOSPITAL HOWEVER SHE CALLED ON 11/12 AND CANCELLED SERVICE STATING SHE DOESN'T NEED THEM ANY MORE CONFIRMED THAT THEY ARE IN NETWORK WITH INSURANCE AND INSURANCE STATES PT IS 100% COVERED FOR HOME HEALTH AND HOME P.T. EXPLAINED TO PT AND SHE AGREES TO CONTINUE SERVICES CLINICAL INFORMATION AND NOTIFICATION OF DC FAXED TO [facility] AT [phone] CONFIRMATION REC'D
[2018-11-20 17:30] VITALS: BP 125/99
--- NOTE | 2018-11-20 18:05 | NUR ---
RIGHT UPPER ARM PICC LINE REMOVED, PATIENT TOLERATED WELL, TIP INTACT
== END 2018-11-20 18:20 | disposition home health service (06) | DRG 871 ==
LOC: ER 20:03 → ERHOLD 11-17 00:15 → IMCU 11-17 00:39
PROVIDERS: ADMIT Internal Medicine; ATTEND Internal Medicine
PROC: 30233N1 Transfusion of Nonautologous Red Blood Cells into Peripheral Vein, Percutaneous Approach (ICD-10-PCS; 2018-11-16)
PROC: 0DB68ZX Excision of Stomach, Via Natural or Artificial Opening Endoscopic, Diagnostic (ICD-10-PCS; 2018-11-17)
PROC: 0DB98ZX Excision of Duodenum, Via Natural or Artificial Opening Endoscopic, Diagnostic (ICD-10-PCS; principal; 2018-11-17 15:30)
DX: A41.9 Sepsis, unspecified organism (principal); K25.4 Chronic or unspecified gastric ulcer with hemorrhage; D62 Acute posthemorrhagic anemia; Z68.42 Body mass index [BMI] 45.0-49.9, adult; K22.10 Ulcer of esophagus without bleeding; J44.9 Chronic obstructive pulmonary disease, unspecified; Z88.8 Allergy status to other drugs, medicaments and biological substances; Z83.3 Family history of diabetes mellitus; Z82.49 Family history of ischemic heart disease and other diseases of the circulatory system; K21.9 Gastro-esophageal reflux disease without esophagitis; E78.00 Pure hypercholesterolemia, unspecified; Z79.01 Long term (current) use of anticoagulants; Z87.891 Personal history of nicotine dependence; K20.9 Esophagitis, unspecified; K44.9 Diaphragmatic hernia without obstruction or gangrene; K26.9 Duodenal ulcer, unspecified as acute or chronic, without hemorrhage or perforation; E11.9 Type 2 diabetes mellitus without complications; E66.9 Obesity, unspecified; I25.10 Atherosclerotic heart disease of native coronary artery without angina pectoris; Z95.5 Presence of coronary angioplasty implant and graft; D72.829 Elevated white blood cell count, unspecified; I48.0 Paroxysmal atrial fibrillation; I25.2 Old myocardial infarction; I11.9 Hypertensive heart disease without heart failure; Z79.4 Long term (current) use of insulin
CPT/HCPCS: 36415; 36569; 43239; 71045; 74176; 80053; 80061; 81001; 82270; 82550; 82553; 82607; 82728; 82746; 82948; 83036; 83540; 83880; 84466; 84484; 85014; 85018; 85025; 85045; 85610; 85730; 86850; 86900; 86920; 87040; 88305; 88312; 93005; 96361; 97139; 99284; J1756; J1815; J1940; J1956; J2001; J7030; J7040; J7050; P9016; Q0162

== ENCOUNTER 2019-12-22 12:02 | Observation (INO) | payer MEDICARE ==
[~2019-12-22] VITALS: Ht 154.9 cm; Wt 96.6 kg
[~2019-12-22 12:02] MED LIST changes: +ACETAMINOP325 MG/10 PO; +CENTRUM ADULTS1 EACH PO; +FLONASE ALLERG9.9 ML; +HYDROCHLOROTHIA25 MG PO; +KLONOPIN0.5 MG PO; +MORINGA PO; +OSTEO BI-FLEX1 EAC2 PO; +PANTOPRAZOLE SO40 MG PO; +SPIRONOLACTONE25 MG PO; +SUCRALFATE1 GM PO; +VOLTAREN-XR100 MG PO
--- NOTE | 2019-12-22 12:16 | Emergency Department Note ---
History of Present Illnes History of Present Illness Chief Complaint: Chest Pain History of Present Illness This is a 79 year old female Chief Complaint Comment Patient in from [facility] with complaints of chest pain that started last night without known cause. Patient states that the pain persisted over night. Patient describes the pain as pressure to the left side of her chest and states that it radiates down her left arm. Historian: Patient Arrival Mode: Car Hybrid Derivatives Trader Required: No Onset (how long ago): day(s) (1) Location: L chest Quality: pressure Radiation: Reports non-radiation Severity: severe Onset quality: gradual Duration (how long): day(s) (1) Timing of current episode: constant Progression: worsening Chronicity: new Context: Denies recent illness, Denies recent surgery Relieving factors: none Exacerbating factors: none Associated symptoms: Reports denies other symptoms Treatments prior to arrival: aspirin Past Medical/Family History Physician Review I have reviewed the patient's past medical and family history. Any updates have been documented here. Past Medical History Recent Fever: No Clinical Suspicion of Infectio: No New/Unexplained Change in Ment: No Past Medical History: Hypertension, Diabetes, COPD, [place], Asthma, A-Fib, Anemia, GERD, Hyperlipedemia Other Medical History: GI BLEED IN NOV 2018 Past Surgical History: Hysterectomy, PCI, Knee Replacement, Cataract Removal Other Surgery: ANKLE, CYST FROM BREAST STENT X 1 BILATERAL KNEE SURGERY Other Last Tetanus: UNK Review of Systems Review of Systems Constitutional: Reports no symptoms EENTM: Reports no symptoms Cardiovascular: Reports chest pain Respiratory: Reports no symptoms Gastrointestinal: Reports no symptoms Genitourinary: Reports no symptoms Musculoskeletal: Reports no symptoms Integumentary: Reports no symptoms Neurological: Reports no symptoms Psychological: Reports no symptoms Endocrine: Reports no symptoms Hematological/Lymphatic: Reports no symptoms Physical Exam Related Data Allergies: Coded Allergies: Beta-Blockers (Beta-Adrenergic Bloc (Verified Allergy, Severe, 12/31/18) NSAIDS (Non-Steroidal Anti-Inflamma (Verified Allergy, Severe, 12/31/18) Bdmjwgq-Afb-Ugr Reductase Inhibitor (Verified Allergy, Severe, 12/31/18) Sulfa (Sulfonamide Antibiotics) (Verified Allergy, Severe, 12/31/18) hydralazine (Verified Allergy, Severe, 12/31/18) isradipine (Verified Allergy, Severe, 12/31/18) nitrofurantoin (Verified Allergy, Severe, 12/31/18) tizanidine (Verified Allergy, Severe, 12/31/18) Cephalexin Monohydrate (Verified Allergy, Mild, ITCHING SWELLING, 06/24/16) atorvastatin calcium (Verified Allergy, Mild, RASH, SWELLING, 06/24/16) celecoxib (Verified Allergy, Mild, ITCHING, SWELLING, 06/24/16) codeine (Verified Allergy, Mild, 06/24/16) diphenhydramine HCl (Verified Allergy, Mild, ITCHING, SWELLING, 06/24/16) guaifenesin (Verified Allergy, Mild, ITCHING, SWELLING, 06/24/16) ibuprofen (Verified Allergy, Mild, ITCHING, SWELLING, 06/24/16) iodine (Verified Allergy, Mild, RASH, SWELLING, 06/24/16) metaxalone (Verified Allergy, Mild, ITCHING, SWELLING, 06/24/16) rofecoxib (Verified Allergy, Mild, ITCHING, SWELLING, 06/24/16) trimethoprim (Verified Allergy, Mild, RASH, SWELLING, 06/24/16) amlodipine (Unverified Allergy, Unknown, RASH, 06/24/16) RASH, SWELLING clarithromycin (Verified Allergy, Unknown, RASH SWELLING, 06/24/16) clopidogrel bisulfate (Verified Allergy, Unknown, 06/24/16) diclofenac (Verified Allergy, Unknown, RASH, SWELLING, 06/24/16) fluvastatin sodium (Verified Allergy, Unknown, RASH, SWELLING, 06/24/16) metoprolol (Verified Allergy, Unknown, 06/24/16) misoprostol (Verified Allergy, Unknown, RASH, SWELLING, 06/24/16) morphine (Verified Allergy, Unknown, 06/24/16) rivaroxaban (Verified Allergy, Unknown, 12/30/18) simvastatin (Verified Allergy, Unknown, RASH, SWELLING, 06/24/16) verapamil (Verified Allergy, Unknown, RASH,SWELLING, 06/24/16) Uncoded Allergies: BERELAN (Allergy, Mild, RASH, SWELLING, 07/08/12) BLAXIN (Allergy, Mild, RASH, SWELLING, 07/08/12) ZORCOR (Allergy, Mild, 06/24/16) ARTHROTEC (Allergy, Unknown, RASH, SWELLING, 04/12/16) BYNACVC (Allergy, Unknown, RASH,SWELLING, 04/12/16) Triage Vital Signs Vital Signs Date Time Temp Pulse Resp B/P (MAP) Pulse Ox O2 Delivery O2 Flow Rate FiO2 12/22/19 12:05 98.7 94 20 160/50 100 Room Air Vital signs reviewed: Yes Physical Exam CONSTITUTIONAL Constitutional: Present well-developed, Present well-nourished, Present distressed HENT HENT: Present normocephalic, Present atraumatic, Present oropharynx clear/moist, Present nose normal HENT L/R: Present left ext ear normal, Present right ext ear normal EYES Eyes: Reports PERRL, Reports conjunctivae normal NECK Neck: Present ROM normal PULMONARY Pulmonary: Present effort normal, Present breath sounds normal CARDIOVASCULAR Cardiovascular: Present regular rhythm, Present heart sounds normal, Present capillary refill normal, Present normal rate GASTROINTESTINAL Abdominal: Present soft, Present nontender, Present bowel sounds normal GENITOURINARY Genitourinary: Present exam deferred SKIN Skin: Present warm, Present dry MUSCULOSKELETAL Musculoskeletal: Present ROM normal NEUROLOGICAL Neurological: Present alert, Present oriented x 3, Present no gross motor or sensory deficits PSYCHOLOGICAL Psychological: Present mood/affect normal, Present judgement normal Results Laboratory Lab results reviewed: Yes Imaging Imaging results reviewed: Yes Diagnostics Tests Diagnostic test(s) reviewed: Yes Procedures 12 Lead ECG Interpretation ECG Interpretation : Hybrid Derivatives Trader: Interpreted by ED physician Date: Dec 22, 2019 Prior ECG tracings: reviewed Rhythm: sinus rhythm Rate: normal QRS axis: normal ST segment flattening: all T wave inversion: I, aVL, V4, V5, V6 Clinical Impression: abnormal ECG Assessment & Plan Medical Decision Making MDM 79 y.o F presents for CP. Hx of [place] w/ stents before. CP started last night. Initial diff includes ACS vs PE vs PNA vs MSK pain among others. W/u largely unremarkable. Trop normal. ASA was taken [employer] HE[employer] TE[employer]ER. SLN PRN. Pain is episodic. Discussed with Dr. Sifuentes who has agreed to admit. Dr. Bourne consulted for cards. Dimer is normal age adjusted Reassessment Reassessment time: 14:02 Reassessment NAD Assessment & Plan Final Impression: (1) Chest pain Depart Disposition: ADMITTED Last Vital Signs Date Time Temp Pulse Resp B/P (MAP) Pulse Ox O2 Delivery O2 Flow Rate FiO2 12/22/19 12:05 98.7 94 20 160/50 100 Room Air Home Meds Reported Medications [[place]] No Conflict Check, 1 TAB PO DAILY 03/25/19 Fluticasone Propionate (Flonase Allergy Relief) 9.9 Ml [place].susp, 1 SPRAYS NA PRN PRN for ALLERGY 03/25/19 Acetaminophen (ACETAMINOPHEN) 325 Mg/10 Ml [place]ix, 325 MG PO Q6H PRN for Mild Pain (1-3) or Fever>100.8, ML 12/31/18 Multivitamin/Iron/Folic Acid (Centrum Adults Tablet) 1 Each Tablet, 1 MG PO DAILY@0600 12/31/18 Glucosamine/D3/Boswellia Luda (OSTEO BI-FLEX CAPLET) 1 Each Tablet, 1 MG PO DAILY@0600 12/31/18 Diclofenac Sodium (VOLTAREN-XR) 100 Mg Tab.er.24h, 50 MG PO PRN for Mild Pain (1-3) or Fever>100.8 12/31/18 Spironolactone (SPIRONOLACTONE) 25 Mg Tablet, 25 MG PO DAILY, #60 TAB 12/31/18 Hydrochlorothiazide (HYDROCHLOROTHIAZIDE) 25 Mg Tablet, 50 MG PO DAILY, #30 TAB 12/31/18 [Turmeric ] No Conflict Check, 1 EACH PO DAILY 11/02/18 Cinnamon Bark (CINNAMON) 500 Mg Capsule, 1000 MG PO DAILY 11/02/18 Glimepiride (GLIMEPIRIDE) 2 Mg Tablet, 2 MG PO BID, TAB 04/17/15 Insulin Glargine (LANTUS) 100 Units/Ml Ml, 50 UNITS SQ HS 04/17/15 JUDSON GARCIA MD Dec 22, 2019 12:16
[2019-12-22 12:47] LABS: BASOPHILS # (AUTO) 0.1 (0.0-0.1); BASOPHILS % 0.4 % (0.0-1.0); EOSINOPHILS # (AUTO) 0.2 (0.0-0.4); EOSINOPHILS % 1.1 % (0.0-6.0); HEMATOCRIT 45.6 % (34.2-44.1); HEMOGLOBIN 15.1 g/dL (12.0-16.0); LYMPHOCYTES # (AUTO) 2.2 (1.0-3.2); LYMPHOCYTES % 14.2 % (18.0-39.1); MEAN CORPUSCULAR HEMOGLOBIN 30.5 pg (28-32); MEAN CORPUSCULAR HGB CONC 33.1 g/dL (31-35); MEAN CORPUSCULAR VOLUME 92.1 fL (81-99); MONOCYTES # (AUTO) 0.9 (0.2-0.8); MONOCYTES % 5.6 % (4.4-11.3); NEUTROPHILS # (AUTO) 11.9 (2.1-6.9); NEUTROPHILS % 78.2 % (38.7-80.0); PLATELET COUNT 234 x10e3/uL (140-360); RED BLOOD COUNT 4.95 x10e6/uL (3.6-5.1); RED CELL DISTRIBUTION WIDTH 13.3 % (11.7-14.4)
[2019-12-22 13:09] LABS: ALBUMIN 4.1 g/dL (3.5-5.0); ALBUMIN/GLOBULIN RATIO 1.1 (0.8-2.0); ANION GAP 16.1 mmol/L (8-16); CALCIUM 9.9 mg/dL (8.4-10.2); CREATININE, SERUM 0.91 mg/dL (0.57-1.11); POTASSIUM 4.1 mmol/L (3.5-5.1)
[2019-12-22 13:21] LABS: LIPASE 20 U/L (8-78)
[2019-12-22] MEDS ORDERED: NITROGLYCERIN 0.4 MG SUBL SL PRN (13:30)
--- NOTE | 2019-12-22 13:50 | Diagnostic Imaging Report ---
TECHNIQUE: Frontal view of the chest. INDICATION: ^Y ^CP ^[id number] ^[id number] COMPARISON: 12/30/2018 DISCUSSION: Limited evaluation due to portable technique. Lines and hardware: Overlying EKG leads are noted. Heart and mediastinum: Stable cardiomegaly and thoracic aortic tortuosity. Stable central vascular congestion. Lungs and pleura: No focal airspace consolidation. No pleural effusion. No pneumothorax. Prominent interstitial markings are noted. Soft tissues and bones: No acute abnormality. IMPRESSION: Stable cardiomegaly with central vascular congestion and prominent interstitial markings which can be seen in patients with fluid overload. No definite effusions are noted. Signed by: Bunny Altamirano MD on 12/22/2019 1:46 PM
--- OUTSIDE RECORDS SUMMARY | 2019-12-22 14:09 | XMS REPORT | Continuity of Care Document ---
Author Author [facility] t Organization [facility] Address [address] [place] [address] Phone Unavailable Care Team Providers Care Numerical Control Router Operator Name Role Phone BRYCE MILLARD, JABIER PCP Christopher Saleh Attphys Unavailable DAHU, S NEETARIES Attphys Unavailable Tahmina REVELES Attphys Unavailable FRANKLIN CEVALLOS Attphys Unavailable Rafat ISABEL Attphys Unavailable DAHU, S JIRIES Admphys Unavailable FRANKLIN CEVALLOS Admphys Unavailable Payers Payer Name Policy Type Policy Number Effective Date Expiration Date Marcial Adams Medicare Advantage [id number] 2018 00:00:00 [facility] Problems Condition Name Condition Details Condition Category Status Onset Date Resolution Date Last Treatment Date Treating Clinician Comments Source Bronchitis Bronchitis Problem Active [facility] Chronic obstructive pulmonary disease COPD (chronic ob structive pulmonary disease) Problem Active [facility] Chest pain Chest pain Problem Active [facility] Gastrointestinal hemorrhage GI bleed Problem Active [facility] Leukocytosis Leukocytosis Problem Active [facility] Secondary anemia Symptomatic anemia Problem Active [facility] Allergies, Adverse Reactions, Alerts Allergy Name Allergy Type Status Severity Reaction(s) Onset Date Inacti ve Date Treating Clinician Comments Source diclofenac sodium DA Active SV 2019-02-04 00:00:00 [facility] diphenhydramine HCl DA Active MO 2019-02-04 00:00:00 [facility] fluvastatin sodium DA Active AK 2019-02-04 00:00:00 [facility] atorvastatin calcium DA Active AK 2019-02-04 00:00:00 [facility] Cephalexin Monohydrate DA Active MO 2019-02-04 00:00:00 [facility] guaifenesin DA Active MO 2019-02-04 00:00:00 [facility] iodine DA Active AK 2019-02-04 00:00:00 [facility] misoprostol DA Active AK 2019-02-04 00:00:00 [facility] morphine DA Active AK 2019-02-04 00:00:00 [facility] codeine DA Active MO 2019-02-04 00:00:00 [facility] acetaminophen DA Active MO 2019-02-04 00:00:00 [facility] metaxalone DA Active MO 2019-02-04 00:00:00 [facility] ibuprofen DA Active MO 2019-02-04 00:00:00 [facility] sulfamethoxazole DA Active AK 2019-02-04 00:00:00 [facility] trimethoprim DA Active AK 2019-02-04 00:00:00 [facility] isradipine DA Active AK 2019-02-04 00:00:00 [facility] clarithromycin DA Active MO 2019-02-04 00:00:00 [facility] simvastatin DA Active MO 2019-02-04 00:00:00 [facility] metoprolol DA Active MO 2019-02-04 00:00:00 [facility] amlodipine DA Active MO 2019-02-04 00:00:00 [facility] tramadol DA Active MO 2019-02-04 00:00:00 [facility] minocycline DA Active MO 2019-02-04 00:00:00 [facility] losartan DA Active SV 2019-02-04 00:00:00 [facility] clopidogrel DA Active SV 2019-02-04 00:00:00 [facility] celecoxib DA Active MO 2019-02-04 00:00:00 [facility] rofecoxib DA Active MO 2019-02-04 00:00:00 [facility] pregabalin DA Active MO 2019-02-04 00:00:00 [facility] diphenhydramine HCl Allergy to Substance Active Mild ITCHIN G, SWELLING 2016-06-24 00:00:00 [facility] fluvastatin sodium Allergy to Substance Active RASH, S WELLING 2016-06-24 00:00:00 [facility] atorvastatin calcium Allergy to Substance Active Mild RASH, SWELLING 2016-06-24 00:00:00 [facility] Cephalexin Monohydrate Allergy to Substance Active Mild ITC JESSE SWELLING 2016-06-24 00:00:00 [facility] clopidogrel bisulfate Allergy to Substance Active 2016-06-15 0 00:00:00 [facility] Guaifenesin Allergy to Substance Active Mild ITCHING, SWELL ING 2016-06-24 00:00:00 [facility] Iodine Allergy to Substance Active Mild RASH, SWELLING 2016-06-24 0 0:00:00 [facility] Misoprostol Allergy to Substance Active RASH, SWELLING 00:00:00 [facility] Morphine Allergy to Substance Active 2016-06-24 00:00:00 [facility] Codeine Allergy to Substance Active Mild 2016-06-24 00:00:00 [facility] Metaxalone Allergy to Substance Active Mild ITCHING, SWELLI NG 2016-06-24 00:00:00 [facility] Ibuprofen Allergy to Substance Active Mild ITCHING, SWELLI NG 2016-06-24 00:00:00 [facility] Trimethoprim Allergy to Substance Active Mild RASH, SWELLIN G 2016-06-24 00:00:00 [facility] Clarithromycin Allergy to Substance Active RASH SWELLING 2016-06-24 00:00:00 [facility] Simvastatin Allergy to Substance Active RASH, SWELLING 00:00:00 [facility] [place] Metoprolol Allergy to Substance Active 2016-06-24 00:00:00 [facility] Amlodipine Allergy to Substance Active RASH 2016-06-24 00:00:00 [facility] Diclofenac Allergy to Substance Active RASH, SWELLING 2016-06-15 0 00:00:00 [facility] Verapamil Allergy to Substance Active RASH,SWELLING 2016-06-24 00: 00:00 [facility] Celecoxib Allergy to Substance Active Mild ITCHING, JOE CUADRA 2016-06-24 00:00:00 [facility] Rofecoxib Allergy to Substance Active Mild ITCHING, JOE CUADRA 2016-06-24 00:00:00 [facility] ZORCOR Allergy to Substance Active Mild 2016-06-24 00:00:00 [facility] ARTHROTEC Allergy to Substance Active RASH, SWELLING 2016-04-12 00:00:00 [facility] BYNACVC Allergy to Substance Active RASH,SWELLING 2016-04-12 00:00 :00 [facility] diclofenac sodium DA Active AK 2012-08-26 00:00:00 [facility] diphenhydramine HCl DA Active MO 2012-08-26 00:00:00 [facility] fluvastatin sodium DA Active AK 2012-08-26 00:00:00 [facility] atorvastatin calcium DA Active AK 2012-08-26 00:00:00 [facility] Cephalexin Monohydrate DA Active MO 2012-08-26 00:00:00 [facility] guaifenesin DA Active MO 2012-08-26 00:00:00 [facility] iodine DA Active AK 2012-08-26 00:00:00 [facility] misoprostol DA Active AK 2012-08-26 00:00:00 [facility] morphine DA Active AK 2012-08-26 00:00:00 [facility] codeine DA Active MO 2012-08-26 00:00:00 [facility] acetaminophen DA Active MO 2012-08-26 00:00:00 [facility] metaxalone DA Active MO 2012-08-26 00:00:00 [facility] ibuprofen DA Active MO 2012-08-26 00:00:00 [facility] sulfamethoxazole DA Active AK 2012-08-26 00:00:00 [facility] trimethoprim DA Active AK 2012-08-26 00:00:00 [facility] isradipine DA Active AK 2012-08-26 00:00:00 [facility] celecoxib DA Active MO 2012-08-26 00:00:00 [facility] rofecoxib DA Active MO 2012-08-26 00:00:00 [facility] BERELAN DA Active AK 2012-08-26 00:00:00 [facility] SOCOR DA Active AK 2012-08-26 00:00:00 [facility] BERELAN Allergy to Substance Active Mild RASH, SWELLING 2012-07-08 0 0:00:00 [facility] BLAXIN Allergy to Substance Active Mild RASH, SWELLING 2012-07-08 0 0:00:00 [facility] Medications Ordered Medication Name Filled Medication Name Start Date Stop Da te Current Medication? Ordering Clinician Indication Dosage Frequency Signature (SIG) Comments Components Source Furosemide 40 Mg Tablet Furosemide 40 Mg Tablet 2018-11-06 00:00:00 Yes Franklin Cevallos Md 40 Daily [facility] Benzonatate (Tessalon Perle) 100 Mg Capsule Benzonatat e (Tessalon Perle) 100 Mg Capsule 2018-11-05 00:00:00 Yes Franklin Cevallos Md 100 Every 8 Hours [facility] Levofloxacin (Levaquin) 500 Mg Tablet, 500 Mg Oral Lev ofloxacin (Levaquin) 500 Mg Tablet, 500 Mg Oral 2018-11-05 00:00:00 2018-11-20 00:00:00 No C nanda Cevallos Md 500 Daily [facility] Alprazolam (Xanax) 0.25 Mg Tablet Alprazolam (Xanax) 0.25 Mg Tablet Yes .25 As Needed [facility] Carvedilol 3.125 Mg Tablet Carvedilol 3.125 Mg Tablet Yes 3.125 Twice A Day [facility] Cinnamon Bark (Cinnamon) 500 Mg Capsule Cinnamon Bark (Cinna mon) 500 Mg Capsule Yes 1000 Daily [facility] Doxazosin Mesylate 2 Mg Tablet Doxazosin Mesylate 2 Mg Tablet Yes 4 Daily [facility] Glimepiride 2 Mg Tablet Glimepiride 2 Mg Tablet Yes 2 Twice A Day [facility] Gluc More/Chondro More A/Vit C/Mn (Glucosamine Chondroitin Tab) 1 Each Tablet Gluc More/Chondro Mroe A/Vit C/Mn (Glucosamine Chondroitin Tab) 1 Each Tablet Yes 1 Daily [facility] Hydralazine Hcl 25 Mg Tab Hydralazine Hcl 25 Mg Tab Yes 25 Three Times A Day [facility] Insulin Glargine (Lantus) 100 Units/Ml Ml Insulin Glar gine (Lantus) 100 Units/Ml Ml Yes 50 Bedtime [facility] Multivitamin/Iron/Folic Acid (Centrum Complete Multivi t Tab) 1 Each Tablet Multivitamin/Iron/Folic Acid (Centrum Complete Multivit Tab) 1 Each Tablet Yes 1 Daily [facility] Turmeric Turmeric Yes 1 Daily [facility] Rivaroxaban (Xarelto) 20 Mg Tablet, 20 Mg Oral Rivarox aban (Xarelto) 20 Mg Tablet, 20 Mg Oral 2018-11-20 00:00:00 No 20 Daily @1700 [facility] Aspirin , 81 Mg Oral Aspirin , 81 Mg Oral 2018-11-16 00:00:00 No 81 Bedtime [facility] Clonidine Hcl 0.2 Mg Tablet, 0.2 Mg Oral Clonidine Hcl 0.2 Mg Tablet, 0.2 Mg Oral 2018-11-05 00:00:00 No .2 Every 12 Hours [facility] Azithromycin (Z-Ky) 250 Mg Tablet, 250 Mg Oral Azithr omycin (Z-Ky) 250 Mg Tablet, 250 Mg Oral 2018-11-03 00:00:00 No 250 Use As Directed [facility] Cephalexin 500 Mg Capsule, 500 Mg Oral Cephalexin 500 Mg Capsule , 500 Mg Oral 2018-11-02 00:00:00 No 500 Three Times A Day [facility] Glucosamine Sulfate 2KCL (Glucosamine) 1,000 Mg Tablet , 1000 Mg Oral Glucosamine Sulfate 2KCL (Glucosamine) 1,000 Mg Tablet, 1000 Mg Oral 201 11-22-18 00:00:00 No 1000 Daily [facility] Levofloxacin (Levaquin) 500 Mg Tablet, 500 Mg Oral Lev ofloxacin (Levaquin) 500 Mg Tablet, 500 Mg Oral 2018-11-02 00:00:00 No 500 D aily [facility] Losartan Potassium 100 Mg Tablet, 100 Mg Oral Losartan Potassium 100 Mg Tablet, 100 Mg Oral 2018-11-02 00:00:00 No 100 Daily [facility] Prednisone 10 Mg Tab, 10 Mg Oral Prednisone 10 Mg Tab, 10 Mg Ora l 2018-11-02 00:00:00 No 10 Titrate [facility] Amoxicillin 250 Mg Capsule, 500 Mg Oral Amoxicillin 250 Mg C apsule, 500 Mg Oral 2016-07-01 00:00:00 No 500 Three Times A Day [facility] Alprazolam 0.5 Mg Tablet, 0.5 Mg Oral Alprazolam 0.5 Mg Tablet, 0.5 Mg Oral 2016-06-24 00:00:00 No .5 As Needed [facility] Fexofenadine Hcl (Sophie Allergy) 60 Mg Tablet, 60 Mg Oral Fexofenadine Hcl (Sophie Allergy) 60 Mg Tablet, 60 Mg Oral 2016-06-24 00:00:00 No 60 Daily [facility] Fish Oil , Oral Fish Oil , Oral 2016-06-24 00:00:00 No Daily [facility] Flonase , Nasal Flonase , Nasal 2016-06-24 00:00:00 No As Needed [facility] Metformin Hcl 500 Mg Tablet, 500 Mg Oral Metformin Hcl 500 Mg Tablet, 500 Mg Oral 2016-06-24 00:00:00 No 500 Daily [facility] Montelukast Sodium 10 Mg Tablet, 10 Mg Oral Montelukas t Sodium 10 Mg Tablet, 10 Mg Oral 2016-06-24 00:00:00 No 10 As Needed [facility] Nitroglycerin 0.4 Mg Tab.subl, 0.4 Mg Sublingual Nitro glycerin 0.4 Mg Tab.subl, 0.4 Mg Sublingual 2016-06-24 00:00:00 No .4 As Nee ded [facility] Rutin/Hesp Cm/Biofl/Trina/Hc111 (Bioflex Tablet) 1 Each Tablet, Oral Rutin/Hesp Cm/Biofl/Trina/Hc111 (Bioflex Tablet) 1 Each Tablet, Oral 2016-06-24 00:00:00 No Daily [facility] Turmeric , Oral Turmeric , Oral 2016-06-24 00:00:00 No Daily [facility] Glipizide (Glipizide Er) 2.5 Mg Tab.er.24, 2.5 Mg Oral Glipizide (Glipizide Er) 2.5 Mg Tab.er.24, 2.5 Mg Oral 2016-04-12 00:00:00 No 2.5 Daily [facility] Albuterol Sulfate (Ventolin Hfa) 18 Gm Hfa.aer.ad, 2 S prays Inhalation Albuterol Sulfate (Ventolin Hfa) 18 Gm Hfa.aer.ad, 2 Sprays Inhalation 2016-04-11 00:00:00 No 2 As Needed [facility] Diclofenac Epolamine (Flector) 1 Each Adh..patch, 50 M g Oral Diclofenac Epolamine (Flector) 1 Each Adh..patch, 50 Mg Oral 2016-04-11 00:00:00 No 50 As Needed [facility] Losartan/Hydrochlorothiazide (Losartan-H ctz 100-25 Mg Tab) 1 Each Tablet, 1 Tab Oral Losartan/Hydrochlorothiazide (Losartan-H ctz 100-25 Mg Tab) 1 Each Tablet, 1 Tab Oral 2016-04-11 00:00:00 No 1 Daily [facility] Mvi , 1 Tab Oral Mvi , 1 Tab Oral 2016-04-11 00:00:00 No 1 Daily [facility] Diphenhydramine Hcl (Benadryl Allergy) 25 Mg Tablet, 1 Tab Oral Diphenhydramine Hcl (Benadryl Allergy) 25 Mg Tablet, 1 Tab Oral 2015-04-19 00:00:00 No 1 As Needed [facility] Aspirin 81 Mg Tab.chew, 81 Mg Oral Aspirin 81 Mg Tab.chew, 81 Mg Oral 2014-08-19 00:00:00 No 81 Daily [facility] Insulin Glargine,Hum.rec.anlog (Lantus) 100 Unit/1 Ml Cartridge, 60 Unit Sub-Q Insulin Glargine,Hum.rec.anlog (Lantus) 100 Unit/1 Ml Cartridge, 60 Unit Sub-Q 2014-08-19 00:00:00 No 60 Daily [facility] Isosorbide Mononitrate (Isosorbide Mononitrate Er) 30 Mg Tab.er.24h, 30 Mg Oral Isosorbide Mononitrate (Isosorbide Mononitrate Er) 30 Mg Tab.er.24h, 30 Mg Oral 2014-08-19 00:00:00 No 30 Daily [facility] Losartan/Hydrochlorothiazide (Losartan-H ctz 50-12.5 Mg Tab) 1 Each Tablet, 50 Mg Oral Losartan/Hydrochlorothiazide (Losartan-H ctz 50-12.5 Mg Tab) 1 Each Tablet, 50 Mg Oral 2014-08-19 00:00:00 No 50 Daily [facility] Megared , 1 Cap Oral Megared , 1 Cap Oral 2014-08-19 00:00:00 No 1 Daily [facility] Nitroglycerin (Nitrostat) 0.4 Mg Tab.subl, 0.4 Mg Subl ingual Nitroglycerin (Nitrostat) 0.4 Mg Tab.subl, 0.4 Mg Sublingual 2014-08-19 00:00:00 No .4 as needed [facility] Prasugrel Hcl (Effient) 10 Mg Tablet, 10 Mg Oral Prasu grel Hcl (Effient) 10 Mg Tablet, 10 Mg Oral 2014-08-19 00:00:00 No 10 Every Morning [facility] Furosemide (Lasix) 40 Mg Tablet, 40 Mg Oral Furosemide (Lasix) 40 Mg Tablet, 40 Mg Oral 2013-09-29 00:00:00 No 40 Daily [facility] Potassium Chloride 10 Meq Tab.er.prt, 10 Mg Oral Potas sium Chloride 10 Meq Tab.er.prt, 10 Mg Oral 2013-09-29 00:00:00 No 10 D aily [facility] Calcium Carbonate (Tums) 200 Mg Tab.chew, 2 Tab.chew O ral Calcium Carbonate (Tums) 200 Mg Tab.chew, 2 Tab.chew Oral 2013-04-02 00:00:00 No 2 as needed [facility] Glipizide 5 Mg Tablet, 5 Mg Oral Glipizide 5 Mg Tablet, 5 Mg Ora l 2013-04-02 00:00:00 No 5 Daily [facility] Insulin Glargine,Hum.rec.anlog (Lantus) 100 Unit/1 Ml Cartridge, 40 Units Insulin Glargine,Hum.rec.anlog (Lantus) 100 Unit/1 Ml Cartridge, 40 Units 2013-04-02 00:00:00 No 40 Before Breakfast [facility] Diclofenac Sodium 50 Mg Tablet., 50 Mg Oral Diclofen ac Sodium 50 Mg Tablet., 50 Mg Oral 2012-11-16 00:00:00 No 50 Twice Daily B efore Meals [facility] Insulin Glargine,Hum.rec.anlog (Lantus) 100 Unit/1 Ml Cartridge, Sub-Q Insulin Glargine,Hum.rec.anlog (Lantus) 100 Unit/1 Ml Cartridge, Sub-Q 2012-11-11 00:00:00 No Twice A Day [facility] Lisinopril (Prinavil / Zestril) 20 Mg Tablet, 20 Mg Or al Lisinopril (Prinavil / Zestril) 20 Mg Tablet, 20 Mg Oral 2012-11-11 00:00:00 No 20 Daily [facility] Montelukast Sodium (Singulair) 10 Mg Tablet, 10 Mg Ora l Montelukast Sodium (Singulair) 10 Mg Tablet, 10 Mg Oral 2012-11-11 00:00:00 No 10 As Needed [facility] Olmesartan Medoxomil (Benicar) 5 Mg Tablet, 2.5 Mg Ora l Olmesartan Medoxomil (Benicar) 5 Mg Tablet, 2.5 Mg Oral 2012-11-11 00:00:00 No 2 .5 Daily [facility] Pregabalin (Lyrica) 50 Mg Cap, 50 Mg Oral Pregabalin ( Lyrica) 50 Mg Cap, 50 Mg Oral 2012-11-11 00:00:00 No 50 Qhs [facility] Procedures Procedure Date / Time Performed Performing Clinician [facility] e EGD with biopsy 2018-11-17 00:00:00 IVEHT ARAUJO [facility] CT of abdomen and pelvis without contrast 2018-11-16 00:00:0 0 LUCY REVELES [facility] Encounters Start Date/Time End Date/Time [facility] ID Source 2018-11-17 00:15:00 2018-11-20 18:20:00 Discharged Inpatient 1 LUCY REVELES [facility] [id number] [facility] 2018-11-04 08:02:00 2018-11-06 13:00:00 Discharged Inpatient 1 FRANKLIN CEVALLOS [facility] [id number] [facility] Results Test Description Test Time Test Comments Results Result Comments Source CHEST SINGLE (PORTABLE) 2019-12-22 13:45:00 [facility] [place] [address] Patient Name: GAURAV ESCOBEDO MR #: [id number] : 1940 Age/Sex: 79/F Req #: [id number] [facility] Physician: Ordered by: Judson Saleh MD Report #: [id number] Location: ER Room/Bed: Procedure: [id number] DX/CHEST SINGLE (PORTABLE) Exam Date: 12/22/19 Exam Time: 1320 REPORT STATUS: Signed TECHNIQUE: Frontal view of the chest. INDICATION: Y CP [id number] COMPARISON: 12/30/2018 DISCUSSION: Limited evaluation due to portable technique. Lines and hardware: Overlying EKG leads are noted. Heart and mediastinum: Stable cardiomegaly and thoracic aortic tortuosity. Stable central vascular congestion. Lungs and pleura: No focal airspace consolidation. No pleural effusion. No pneumothorax. Prominent interstitial markings are noted. Soft tissues and bones: No acute abnormality. IMPRESSION: Stable cardiomegaly with central vascular congestion and prominent interstitial markings which can be seen in patients with fluid overload. No definite effusions are noted. Signed by: Hua Altamirano MD on 12/22/2019 1:46 PM Dictated By: HUA ALTAMIRANO MD [id number] Transcribed By: HA on 12/22/19 1346 COPY TO: JUDSON SALEH MD GLUBED 2019-02-11 16:43:00 Test Item GLUBED (test code = GLUBED) 202 MG/DL 70-110 H Performed by certified engine room operator at [facility] - CT HEAD/BRAIN W/O [id number] 14:20:00 Name: GAURAV ESCOBEDO [facility] : 1940 Age/S: 78 / F [address] [place] [address] Unit #: [id number] Loc: [place] [address] Phys: George Felder DO Acct: [id number] Dis Date: Status: ADM IN PHONE #: [phone] Exam Date: 02/11/2019 1334 FAX #: [phone] Reason: dizziness EXAMS: CPT CODE: [id number] CT HEAD/BRAIN W/O CONT [id number] CT head without contrast 02/11/2019 HISTORY: Dizziness. Atrial fibrillation PROCEDURE: Multiple axial images from the skull base to the skull vertex were obtained without contrast. Coronal and sagittal reconstructed images were performed CT imaging performed at this location utilizes radiation dose optimization techniques which include one or more of the following: -Automated exposure control -Adjustment of the mA and/or kV according to patient size - Use of iterative reconstruction technique CT Radiation Dose DLP 938.9 mGy- cm Comparison is made to 04/09/2012 FINDINGS: No acute intracranial hemorrhage, midline shift, extra-axial fluid collection, or hydrocephalus is present. No cortical hypodensity to suggest an acute infarct is noted. There is mild atrophy. There are mild white matter hypodensities. The visualized mastoid air cells are clear. There is no air-fluid level in the visualized paranasal sinuses. Distal internal carotid arterial calcifications are present. I MPRESSION: 1. No acute intracranial abnormality. 2. Mild atrop hy and mild chronic microvascular ischemic changes. [id number] 1420 Reported and signed by: Alex Jain M.D. CC: Mani lopez MD; George Felder DO; Guerita Altamirano MD Technologist:Husam Gan, RT(R) CTDI: DLP: Trnscb Date/Time: 02/11/2019 (1420) [id number] Orig Print D/T: S: 02/11/2019 (4698) PAGE 1 Signed Report [id number] 08:09:00* Test Item Value Reference Range Interpretation Comments GLUBED (test code = GLUBED) 191 MG/DL 70-110 H Performed by certified engine room operator at [facility] [id number] 20:09:00* Test Item Value Reference Range Interpretation Comments GLUBED (test code = GLUBED) 217 MG/DL 70-110 H Performed by certified engine room operator at [facility] [id number] 16:51:00* Test Item Value Reference Range Interpretation Comments GLUBED (test code = GLUBED) 263 MG/DL 70-110 H Performed by certified engine room operator at [facility] [id number] 13:44:00* Test Item Value Reference Range Interpretation Comments GLUBED (test code = GLUBED) 282 MG/DL 70-110 H Performed by certified engine room operator at [facility] [id number] 12:04:00* Test Item Value Reference Range Interpretation Comments GLUBED (test code = GLUBED) 256 MG/DL 70-110 H Performed by certified engine room operator at [facility] BASIC METABOLIC [id number] 07:32:00* Test Item Value Reference Range Interpretation Comments SODIUM (test code = NA) 131 mEq/L 134-147 L POTASSIUM (test code = K) 4.1 mEq/L 3.4-5.0 N CHLORIDE (test code = CL) 97 mEq/L 100-108 L CARBON DIOXIDE (test code = CO2) 26 mEq/L 21-33 N ANION GAP (test code = GAP) 12 0-20 N GLUCOSE (test code = GLU) 280 mg/dL 70-110 H BLOOD UREA NITROGEN (test code = BUN) 47 mg/dL 7-18 H GLOMERULAR FILTRATION RATE (test code = GFR) 43.3 70-80 L Units of measure = ml/min/1.73 m2 CREATININE (test code = CREAT) 1.2 mg/dL 0.6-1.3 N CALCIUM (test code = CA) 7.9 mg/dL 8.0-10.5 L CBC W/AUTO [id number] 07:01:00* Test Item Value Reference Range Interpretation Comments WHITE BLOOD CELL (test code = WBC) 19.92 x10 3/uL 4.5-11.0 H RED BLOOD CELL (test code = RBC) 4.00 x10 6/uL 3.54-5.02 N HEMOGLOBIN (test code = HGB) 11.0 g/dL 11.0-15.0 N HEMATOCRIT (test code = HCT) 34.2 % 33.0-45.0 N MEAN CELL VOLUME (test code = MCV) 85.5 fL 81.0-99.0 N MEAN CELL HGB (test code = MCH) 27.5 pg 27.0-33.0 N MEAN CELL HGB CONCETRATION (test code = MCHC) 32.2 g/dL 33.0-37. 0 L RED CELL DISTRIBUTION WIDTH CV (test code = RDW) 15.9 % 11.5- 14.5 H RED CELL DISTRIBUTION WIDTH SD (test code = RDW-SD) 49.8 fL 37 .0-54.0 N PLATELET COUNT (test code = PLT) 143 x10 3/uL 150-400 L MEAN PLATELET VOLUME (test code = MPV) 11.6 fL 7.0-9.0 H NEUTROPHIL % (test code = NT%) 81.8 % 56.0-77.0 H IMMATURE GRANULOCYTE % (test code = IG%) 0.8 % 0.0-2.0 N LYMPHOCYTE % (test code = LY%) 11.9 % 14.0-32.0 L MONOCYTE % (test code = MO%) 4.8 % 4.8-9.0 N EOSINOPHIL % (test code = EO%) 0.4 % 0.3-3.7 N BASOPHIL % (test code = BA%) 0.3 % 0.0-2.0 N NUCLEATED RBC % (test code = NRBC%) 0.0 % 0-0 N NEUTROPHIL # (test code = NT#) 16.31 x10 3/uL 2.0-7.6 H IMMATURE GRANULOCYTE # (test code = IG#) 0.15 x10 3/uL 0.00-0.03 H LYMPHOCYTE # (test code = LY#) 2.37 x10 3/uL 1.0-3.8 N MONOCYTE # (test code = MO#) 0.96 x10 3/uL 0.1-0.8 H EOSINOPHIL # (test code = EO#) 0.07 x10 3/uL 0.0-0.2 N BASOPHIL # (test code = BA#) 0.06 x10 3/uL 0.0-0.2 N NUCLEATED RBC # (test code = NRBC#) 0.00 x10 3/uL 0.0-0.1 N MANUAL DIFF REQUIRED (test code = MDIFF) NO [id number] 06:18:00* Test Item Value Reference Range Interpretation Comments GLUBED (test code = GLUBED) 217 MG/DL 70-110 H Performed by certified engine room operator at [facility] [id number] 17:27:00* Test Item Value Reference Range Interpretation Comments GLUBED (test code = GLUBED) 235 MG/DL 70-110 H Performed by certified engine room operator at [facility] [id number] 12:34:00* Test Item Value Reference Range Interpretation Comments GLUBED (test code = GLUBED) 328 MG/DL 70-110 H Performed by certified engine room operator at [facility] - XR CHEST 2 [id number] 09:10:00 FAX: Mani Nicole [phone] [place]: St: ADM FAX: Jabier Chavarria MD [phone] Name: GAURAV ESCOBEDO [facility] : 1940 Age/S: 78/F [address] [place] [address] Unit #: [id number] Loc: G.[address] [place] [address] Phys: Mani Pineda MD Acct: [id number] Dis Date: Status: ADM IN PHONE #: [phone] Exam Date: 02/09/2019 0829 FAX #: [phone] Reason: pulmonary edema EXAMS: CPT CODE: [id number] XR CHEST 2 V 93546 CHEST 1 VIEW: 02/09/2019 COMPARISON: February 04, 2019 CLINICAL HISTORY: pulmonary edema FINDINGS: The cardiovascular silhouette is normal in size. There is moderate tortuosity of the descending thoracic aorta. Lungs are clear except for minor bibasilar areas of linear discoid atelectasis. The lung volumes are low. IMPRESSION: Mild bibasilar linear discoid atelectasis. Electronically Signed by Jasmine Evangelista on at 0910 Reported and signed by: Wendy Aceves CC: Mani Valerio MD; Jabier Altamirano MD Technologist: RT Lelia(R) Trnscrd Date/Time/By: 02/09/2019 (0910) : By: RadhaAJ13 Orig Print D/T: S: 02/09/2019 (0934) PAGE 1 Signed R eport CBC W/AUTO [id number] 08:03:00* Test Item Value Reference Range Interpretation Comments WHITE BLOOD CELL (test code = WBC) 19.10 x10 3/uL 4.5-11.0 H RED BLOOD CELL (test code = RBC) 4.44 x10 6/uL 3.54-5.02 N HEMOGLOBIN (test code = HGB) 12.5 g/dL 11.0-15.0 N HEMATOCRIT (test code = HCT) 39.2 % 33.0-45.0 N MEAN CELL VOLUME (test code = MCV) 88.3 fL 81.0-99.0 N MEAN CELL HGB (test code = MCH) 28.2 pg 27.0-33.0 N MEAN CELL HGB CONCETRATION (test code = MCHC) 31.9 g/dL 33.0-37. 0 L RED CELL DISTRIBUTION WIDTH CV (test code = RDW) 15.9 % 11.5- 14.5 H RED CELL DISTRIBUTION WIDTH SD (test code = RDW-SD) 51.3 fL 37 .0-54.0 N PLATELET COUNT (test code = PLT) x10 3/uL SEE PLT EST. BELOW Previously reported result: 118 x10\S\3/uLEdited by: ANAHI on 02/09/19:94528504/11/18 0800: PLT previously reported as: 118 L x10\S\3/uL MEAN PLATELET VOLUME (test code = MPV) 11.8 fL 7.0-9.0 H NEUTROPHIL % (test code = NT%) 86.2 % 56.0-77.0 H IMMATURE GRANULOCYTE % (test code = IG%) 0.7 % 0.0-2.0 N LYMPHOCYTE % (test code = LY%) 6.5 % 14.0-32.0 L MONOCYTE % (test code = MO%) 6.4 % 4.8-9.0 N EOSINOPHIL % (test code = EO%) 0.0 % 0.3-3.7 L BASOPHIL % (test code = BA%) 0.2 % 0.0-2.0 N NUCLEATED RBC % (test code = NRBC%) 0.0 % 0-0 N NEUTROPHIL # (test code = NT#) 16.46 x10 3/uL 2.0-7.6 H IMMATURE GRANULOCYTE # (test code = IG#) 0.13 x10 3/uL 0.00-0.03 H LYMPHOCYTE # (test code = LY#) 1.24 x10 3/uL 1.0-3.8 N MONOCYTE # (test code = MO#) 1.23 x10 3/uL 0.1-0.8 H EOSINOPHIL # (test code = EO#) 0.00 x10 3/uL 0.0-0.2 N BASOPHIL # (test code = BA#) 0.04 x10 3/uL 0.0-0.2 N NUCLEATED RBC # (test code = NRBC#) 0.00 x10 3/uL 0.0-0.1 N MANUAL DIFF REQUIRED (test code = MDIFF) NO PLT [id number] 08:03:00* Test Item Value Reference Range Interpretation Comments PLATELET ESTIMATE (test code = PLTEST) 152-190 THOUSAND ADEQUATE PLATELET MORPHOLOGY (test code = PLTMORPH) LARGE PLATELETS LARGE PLTS SEEN CBC W/AUTO [id number] 08:00:00* Test Item Value Reference Range Interpretation Comments WHITE BLOOD CELL (test code = WBC) 19.10 x10 3/uL 4.5-11.0 H RED BLOOD CELL (test code = RBC) 4.44 x10 6/uL 3.54-5.02 N HEMOGLOBIN (test code = HGB) 12.5 g/dL 11.0-15.0 N HEMATOCRIT (test code = HCT) 39.2 % 33.0-45.0 N MEAN CELL VOLUME (test code = MCV) 88.3 fL 81.0-99.0 N MEAN CELL HGB (test code = MCH) 28.2 pg 27.0-33.0 N MEAN CELL HGB CONCETRATION (test code = MCHC) 31.9 g/dL 33.0-37. 0 L RED CELL DISTRIBUTION WIDTH CV (test code = RDW) 15.9 % 11.5- 14.5 H RED CELL DISTRIBUTION WIDTH SD (test code = RDW-SD) 51.3 fL 37 .0-54.0 N PLATELET COUNT (test code = PLT) x10 3/uL SEE PLT EST. BELOW Previously reported result: 118 x10\S\3/uLEdited by: ANAHI on 02/09/19:786160 0800: PLT previously reported as: 118 L x10\S\3/uL MEAN PLATELET VOLUME (test code = MPV) 11.8 fL 7.0-9.0 H NEUTROPHIL % (test code = NT%) 86.2 % 56.0-77.0 H IMMATURE GRANULOCYTE % (test code = IG%) 0.7 % 0.0-2.0 N LYMPHOCYTE % (test code = LY%) 6.5 % 14.0-32.0 L MONOCYTE % (test code = MO%) 6.4 % 4.8-9.0 N EOSINOPHIL % (test code = EO%) 0.0 % 0.3-3.7 L BASOPHIL % (test code = BA%) 0.2 % 0.0-2.0 N NUCLEATED RBC % (test code = NRBC%) 0.0 % 0-0 N NEUTROPHIL # (test code = NT#) 16.46 x10 3/uL 2.0-7.6 H IMMATURE GRANULOCYTE # (test code = IG#) 0.13 x10 3/uL 0.00-0.03 H LYMPHOCYTE # (test code = LY#) 1.24 x10 3/uL 1.0-3.8 N MONOCYTE # (test code = MO#) 1.23 x10 3/uL 0.1-0.8 H EOSINOPHIL # (test code = EO#) 0.00 x10 3/uL 0.0-0.2 N BASOPHIL # (test code = BA#) 0.04 x10 3/uL 0.0-0.2 N NUCLEATED RBC # (test code = NRBC#) 0.00 x10 3/uL 0.0-0.1 N MANUAL DIFF REQUIRED (test code = MDIFF) NO PLT [id number] 08:00:00* Test Item Value Reference Range Interpretation Comments PLATELET ESTIMATE (test code = PLTEST) THOUSAND ADEQUATE CBC W/AUTO [id number] 08:00:00* Test Item Value Reference Range Interpretation Comments WHITE BLOOD CELL (test code = WBC) 19.10 x10 3/uL 4.5-11.0 H RED BLOOD CELL (test code = RBC) 4.44 x10 6/uL 3.54-5.02 N HEMOGLOBIN (test code = HGB) 12.5 g/dL 11.0-15.0 N HEMATOCRIT (test code = HCT) 39.2 % 33.0-45.0 N MEAN CELL VOLUME (test code = MCV) 88.3 fL 81.0-99.0 N MEAN CELL HGB (test code = MCH) 28.2 pg 27.0-33.0 N MEAN CELL HGB CONCETRATION (test code = MCHC) 31.9 g/dL 33.0-37. 0 L RED CELL DISTRIBUTION WIDTH CV (test code = RDW) 15.9 % 11.5- 14.5 H RED CELL DISTRIBUTION WIDTH SD (test code = RDW-SD) 51.3 fL 37 .0-54.0 N PLATELET COUNT (test code = PLT) x10 3/uL SEE PLT EST. BELOW Previously reported result: 118 x10\S\3/uLEdited by: ANAHI on 02/09/19:094320 0800: PLT previously reported as: 118 L x10\S\3/uL MEAN PLATELET VOLUME (test code = MPV) 11.8 fL 7.0-9.0 H NEUTROPHIL % (test code = NT%) 86.2 % 56.0-77.0 H IMMATURE GRANULOCYTE % (test code = IG%) 0.7 % 0.0-2.0 N LYMPHOCYTE % (test code = LY%) 6.5 % 14.0-32.0 L MONOCYTE % (test code = MO%) 6.4 % 4.8-9.0 N EOSINOPHIL % (test code = EO%) 0.0 % 0.3-3.7 L BASOPHIL % (test code = BA%) 0.2 % 0.0-2.0 N NUCLEATED RBC % (test code = NRBC%) 0.0 % 0-0 N NEUTROPHIL # (test code = NT#) 16.46 x10 3/uL 2.0-7.6 H IMMATURE GRANULOCYTE # (test code = IG#) 0.13 x10 3/uL 0.00-0.03 H LYMPHOCYTE # (test code = LY#) 1.24 x10 3/uL 1.0-3.8 N MONOCYTE # (test code = MO#) 1.23 x10 3/uL 0.1-0.8 H EOSINOPHIL # (test code = EO#) 0.00 x10 3/uL 0.0-0.2 N BASOPHIL # (test code = BA#) 0.04 x10 3/uL 0.0-0.2 N NUCLEATED RBC # (test code = NRBC#) 0.00 x10 3/uL 0.0-0.1 N MANUAL DIFF REQUIRED (test code = MDIFF) NO PLT [id number] 08:00:00* Test Item Value Reference Range Interpretation Comments PLATELET ESTIMATE (test code = PLTEST) THOUSAND ADEQUATE [id number] 07:56:00* Test Item Value Reference Range Interpretation Comments GLUBED (test code = GLUBED) 322 MG/DL 70-110 H Performed by certified engine room operator at [facility] [id number] 06:50:00* Test Item Value Reference Range Interpretation Comments GLUBED (test code = GLUBED) 289 MG/DL 70-110 H Performed by certified engine room operator at [facility] CBC W/AUTO [id number] 06:20:00* Test Item Value Reference Range Interpretation Comments WHITE BLOOD CELL (test code = WBC) 19.10 x10 3/uL 4.5-11.0 H RED BLOOD CELL (test code = RBC) 4.44 x10 6/uL 3.54-5.02 N HEMOGLOBIN (test code = HGB) 12.5 g/dL 11.0-15.0 N HEMATOCRIT (test code = HCT) 39.2 % 33.0-45.0 N MEAN CELL VOLUME (test code = MCV) 88.3 fL 81.0-99.0 N MEAN CELL HGB (test code = MCH) 28.2 pg 27.0-33.0 N MEAN CELL HGB CONCETRATION (test code = MCHC) 31.9 g/dL 33.0-37. 0 L RED CELL DISTRIBUTION WIDTH CV (test code = RDW) 15.9 % 11.5- 14.5 H RED CELL DISTRIBUTION WIDTH SD (test code = RDW-SD) 51.3 fL 37 .0-54.0 N PLATELET COUNT (test code = PLT) 118 x10 3/uL 150-400 L MEAN PLATELET VOLUME (test code = MPV) 11.8 fL 7.0-9.0 H NEUTROPHIL % (test code = NT%) 86.2 % 56.0-77.0 H IMMATURE GRANULOCYTE % (test code = IG%) 0.7 % 0.0-2.0 N LYMPHOCYTE % (test code = LY%) 6.5 % 14.0-32.0 L MONOCYTE % (test code = MO%) 6.4 % 4.8-9.0 N EOSINOPHIL % (test code = EO%) 0.0 % 0.3-3.7 L BASOPHIL % (test code = BA%) 0.2 % 0.0-2.0 N NUCLEATED RBC % (test code = NRBC%) 0.0 % 0-0 N NEUTROPHIL # (test code = NT#) 16.46 x10 3/uL 2.0-7.6 H IMMATURE GRANULOCYTE # (test code = IG#) 0.13 x10 3/uL 0.00-0.03 H LYMPHOCYTE # (test code = LY#) 1.24 x10 3/uL 1.0-3.8 N MONOCYTE # (test code = MO#) 1.23 x10 3/uL 0.1-0.8 H EOSINOPHIL # (test code = EO#) 0.00 x10 3/uL 0.0-0.2 N BASOPHIL # (test code = BA#) 0.04 x10 3/uL 0.0-0.2 N NUCLEATED RBC # (test code = NRBC#) 0.00 x10 3/uL 0.0-0.1 N MANUAL DIFF REQUIRED (test code = MDIFF) NO BASIC METABOLIC [id number] 06:13:00* Test Item Value Reference Range Interpretation Comments SODIUM (test code = NA) 135 mEq/L 134-147 N POTASSIUM (test code = K) 4.7 mEq/L 3.4-5.0 N CHLORIDE (test code = CL) 103 mEq/L 100-108 N CARBON DIOXIDE (test code = CO2) 26 mEq/L 21-33 N ANION GAP (test code = GAP) 11 0-20 N GLUCOSE (test code = GLU) 330 mg/dL 70-110 H BLOOD UREA NITROGEN (test code = BUN) 31 mg/dL 7-18 H GLOMERULAR FILTRATION RATE (test code = GFR) 39.5 70-80 L Units of measure = ml/min/1.73 m2 CREATININE (test code = CREAT) 1.3 mg/dL 0.6-1.3 N CALCIUM (test code = CA) 8.2 mg/dL 8.0-10.5 N HGB [id number] 20:02:00* Test Item Value Reference Range Interpretation Comments HEMOGLOBIN (test code = HGB) 10.9 g/dL 11.0-15.0 L HEMATOCRIT (test code = HCT) 35.4 % 33.0-45.0 N [id number] 19:36:00* Test Item Value Reference Range Interpretation Comments GLUBED (test code = GLUBED) 328 MG/DL 70-110 H Performed by certified engine room operator at [facility] [id number] 17:13:00* Test Item Value Reference Range Interpretation Comments GLUBED (test code = GLUBED) 330 MG/DL 70-110 H Performed by certified engine room operator at [facility] HGB [id number] 15:28:00* Test Item Value Reference Range Interpretation Comments HEMOGLOBIN (test code = HGB) 12.3 g/dL 11.0-15.0 N HEMATOCRIT (test code = HCT) 38.8 % 33.0-45.0 N [id number] 14:26:00* Test Item Value Reference Range Interpretation Comments GLUBED (test code = GLUBED) 318 MG/DL 70-110 H Performed by certified engine room operator at [facility] TPD-[id number] 13:15:00* Test Item Value Reference Range Interpretation Comments ACT-ISTAT (test code = ACTI) 186 SEC 74-137 H Performed by certified engine room operator at [facility] [id number] 12:13:00* Test Item Value Reference Range Interpretation Comments ACT-ISTAT (test code = ACTI) 219 SEC 74-137 H Performed by certified engine room operator at [facility] [id number] 10:42:00* Test Item Value Reference Range Interpretation Comments GLUBED (test code = GLUBED) 108 MG/DL 70-110 N Performed by certified engine room operator at [facility] ENA-[id number] 09:59:00* Test Item Value Reference Range Interpretation Comments ACT-ISTAT (test code = ACTI) 312 SEC 74-137 H Performed by certified [facility] [place] 09:34:00* Test Item Value Reference Range Interpretation Comments ACT-ISTAT (test code = ACTI) 345 SEC 74-137 H Performed by certified engine room operator at [facility] [id number] 09:34:00* Test Item Value Reference Range Interpretation Comments ACT-ISTAT (test code = ACTI) 307 SEC 74-137 H Performed by certified engine room operator at [facility] [id number] 07:05:00* Test Item Value Reference Range Interpretation Comments GLUBED (test code = GLUBED) 109 MG/DL 70-110 N Performed by certified engine room operator at [facility] BASIC METABOLIC [id number] 15:34:00* Test Item Value Reference Range Interpretation Comments SODIUM (test code = NA) 135 mEq/L 134-147 N POTASSIUM (test code = K) 3.9 mEq/L 3.4-5.0 N CHLORIDE (test code = CL) 99 mEq/L 100-108 L CARBON DIOXIDE (test code = CO2) 30 mEq/L 21-33 N ANION GAP (test code = GAP) 10 0-20 N GLUCOSE (test code = GLU) 107 mg/dL 70-110 N BLOOD UREA NITROGEN (test code = BUN) 19 mg/dL 7-18 H GLOMERULAR FILTRATION RATE (test code = GFR) 80.7 70-80 H Units of measure = ml/min/1.73 m2 CREATININE (test code = CREAT) 0.7 mg/dL 0.6-1.3 N CALCIUM (test code = CA) 9.6 mg/dL 8.0-10.5 N [id number] 15:34:00* Test Item Value Reference Range Interpretation Comments PREALBUMIN (test code = PREALB) 24.0 mg/dL 16.0-40.0 N BASIC METABOLIC [id number] 15:26:00* Test Item Value Reference Range Interpretation Comments SODIUM (test code = NA) 135 mEq/L 134-147 N POTASSIUM (test code = K) 3.9 mEq/L 3.4-5.0 N CHLORIDE (test code = CL) 99 mEq/L 100-108 L CARBON DIOXIDE (test code = CO2) 30 mEq/L 21-33 N ANION GAP (test code = GAP) 10 0-20 N GLUCOSE (test code = GLU) 107 mg/dL 70-110 N BLOOD UREA NITROGEN (test code = BUN) 19 mg/dL 7-18 H GLOMERULAR FILTRATION RATE (test code = GFR) 70-80 CREATININE (test code = CREAT) mg/dL 0.6-1.3 CALCIUM (test code = CA) 9.6 mg/dL 8.0-10.5 N [id number] 15:26:00* Test Item Value Reference Range Interpretation Comments PREALBUMIN (test code = PREALB) mg/dL 16.0-40.0 PROTHROMBIN [id number] 15:22:00* Test Item Value Reference Range Interpretation Comments PROTHROMBIN TIME PATIENT (test code = PTP) 13.0 SECONDS 9.3-12.9 H INTERNATIONAL NORMAL RATIO (test code = INR) 1.2 0.8-1.2 N TARGET INR BY INDICATION Indication INR1. Prophylaxis of venous thrombosis 2.0 - 3.0 (orthopedic surgery), Prophylaxis of venous thrombosis (other than high-risk surgery), Treatment of Deep Vein Thrombosis/Pulmonary Embolism, Prevention of systemic embolism - Tissue heart valves, Acute Myocardial Infarction (to prevent systemic embolism), Valvular heart disease, Atrial Fibrillation, Bileaflet mechanical valve in aortic position.2. Mechanical prosthetic valves (high risk), 2.5 - 3.5 Presence of Lupus Anticoagulant or Antiphospholipid Antibodies, Prevention of systemic embolism - Acute Myocardial Infarction (to prevent recurrent infarct). CBC W/AUTO [id number] 15:13:00* Test Item Value Reference Range Interpretation Comments WHITE BLOOD CELL (test code = WBC) 12.19 x10 3/uL 4.5-11.0 H RED BLOOD CELL (test code = RBC) 5.26 x10 6/uL 3.54-5.02 H HEMOGLOBIN (test code = HGB) 14.4 g/dL 11.0-15.0 N HEMATOCRIT (test code = HCT) 45.6 % 33.0-45.0 H MEAN CELL VOLUME (test code = MCV) 86.7 fL 81.0-99.0 N MEAN CELL HGB (test code = MCH) 27.4 pg 27.0-33.0 N MEAN CELL HGB CONCETRATION (test code = MCHC) 31.6 g/dL 33.0-37. 0 L RED CELL DISTRIBUTION WIDTH CV (test code = RDW) 16.0 % 11.5- 14.5 H RED CELL DISTRIBUTION WIDTH SD (test code = RDW-SD) 50.5 fL 37 .0-54.0 N PLATELET COUNT (test code = PLT) 184 x10 3/uL 150-400 N MEAN PLATELET VOLUME (test code = MPV) 12.6 fL 7.0-9.0 H NEUTROPHIL % (test code = NT%) 66.1 % 56.0-77.0 N IMMATURE GRANULOCYTE % (test code = IG%) 0.2 % 0.0-2.0 N LYMPHOCYTE % (test code = LY%) 24.0 % 14.0-32.0 N MONOCYTE % (test code = MO%) 7.1 % 4.8-9.0 N EOSINOPHIL % (test code = EO%) 2.1 % 0.3-3.7 N BASOPHIL % (test code = BA%) 0.5 % 0.0-2.0 N NUCLEATED RBC % (test code = NRBC%) 0.0 % 0-0 N NEUTROPHIL # (test code = NT#) 8.04 x10 3/uL 2.0-7.6 H IMMATURE GRANULOCYTE # (test code = IG#) 0.03 x10 3/uL 0.00-0.03 N LYMPHOCYTE # (test code = LY#) 2.93 x10 3/uL 1.0-3.8 N MONOCYTE # (test code = MO#) 0.87 x10 3/uL 0.1-0.8 H EOSINOPHIL # (test code = EO#) 0.26 x10 3/uL 0.0-0.2 H BASOPHIL # (test code = BA#) 0.06 x10 3/uL 0.0-0.2 N NUCLEATED RBC # (test code = NRBC#) 0.00 x10 3/uL 0.0-0.1 N MANUAL DIFF REQUIRED (test code = MDIFF) NO - XR CHEST 2 [id number] 13:42:00 FAX: Mani Nicole [phone] [place]: St: PRE FAX: Jabier Chavarria MD [phone] Name: GAURAV ESCOBEDO [facility] : 1940 Age/S: 78/F [address] [place] [address] Unit #: [id number] Loc: [address] [address] Phys: Mani Pineda MD Acct: [id number] Dis Date: Status: PRE IN PHONE #: [phone] Exam Date: 02/04/2019 1339 FAX #: [phone] Reason: PREOP WATCHMAN EXAMS: CPT CODE: [id number] XR CHEST 2 V 49176 EXAM: PA and lateral chest. EXAM DATE: February 04, 2019 CLINICAL HISTORY: PREOP WATCHMAN COMPARISON: April 09, 2012 Heart is upper limits of normal in size. Atherosclerotic calcifications and tortuosity of the intrathoracic aorta is identified.. The right lung is unremarkable. Hypoventilatory changes or scarring in the left lung base is relatively stable compared to the prior exam. The upper left lung is unremarkable. Osseous structures demonstrate no acute abnormalities. IMPRESSION: No evidence of acute cardiopulmonary disease. at 1342 Reported and signed by: Diane Saxena M.D. CC: Mani Valerio MD; Jabier Altamirano MD Techn ologist: Emy Cast, RT(R)(M) Trnscrd Date/[place] e/By: 02/04/2019 (6392) : By: RadhaCER Orig Print D/T: S: 02/04/2019 (1343) PAGE 1 Signed Report CHEST SINGLE (PORTABLE)2018-12-30 21:27:00 [place] [address] Patient Name: GAURAV ESCOBEDO MR #: [id number] : 1940 Age/Sex: 78/F Req #: [id number] Adm Physician: ARIAS KNOTT MD Ordered by: BRIELLE ANTONIO DO Report #: [id number] Location: [facility] Room/Bed: [place] [address] Procedure: [id number] DX /CHEST SINGLE (PORTABLE) Exam Date: 12/30/18 Exam Ti me: 2054 REPORT STATUS: Signed E XAMINATION: CHEST SINGLE (PORTABLE) INDICATION: CHEST PAIN [id number] Y COMPARISON: 11/16/2018 FINDINGS: AP view TUBES and LINES: None. LUNGS: Limited by body habitus and low lung volumes. Mild vascular congestion, accentuated by low lung volumes. There is no evidence of pneumonia or pulmonary edema. PLEURA: No pneumothorax. S uspected trace left pleural effusion. HEART AND MEDIASTINUM: The cardiomed iastinal silhouette is unremarkable. Aorta is mildly calcified and tortuous. BONES AND SOFT TISSUES: No acute osseous lesion. Soft tissues are unrema rkable. UPPER ABDOMEN: No free air under the diaphragm. IMPRESSION : Enlarged cardiomediastinal silhouette and mild vascular congestion, accentu ated by low lung volumes. Suspected trace left pleural effusion. Sig nicolas by: Dr. Daniel Dalton MD on 12/30/2018 9:33 PM Dictated By: DANIEL PIZARRO MD 2132 Transcrib ed By: HA on 12/30/182132 COPY TO: BRIELLE ANTONIO DO Wpcbntipgx0395-83-03 12:57:00* Test Item Value Reference Range Interpretation Comments Hemoglobin (test code = 13443-6) 8.9 12.0-16.0 L [facility] 12:57:00* Test Item Value Reference Range Interpretation Comments Hematocrit (test code = 4544-3) 27.0 34.2-44.1 L [facility] [id number] 10:38:00* Test Item Value Reference Range Interpretation Comments Platelet Estimate (test code = 24932-0) SLIGHTLY DECREASED [facility] Morphology [id number] 10:38:00* Test Item Value Reference Range Interpretation Comments Platelet Morphology Comment (test code = 62132-2) NORMAL [facility] Morphology [id number] 10:38:00* Test Item Value Reference Range Interpretation Comments Red Cell Morphology Comment (test code = 6742-1) ABNORMAL [facility] Blood [id number] 05:26:00* Test Item Value Reference Range Interpretation Comments White Blood Count (test code = 6690-2) 11.62 4.8-10.8 H [facility] [id number] 05:26:00* Test Item Value Reference Range Interpretation Comments Red Blood Count (test code = 789-8) 2.71 3.6-5.1 L [facility] Corpuscular Cgzsak7459-05-26 05:26:00* Test Item Value Reference Range Interpretation Comments Mean Corpuscular Volume (test code = 787-2) 91.1 81-99 [facility] Jwxayszppc6507-41-27 05:26:00* Test Item Value Reference Range Interpretation Comments Mean Corpuscular Hemoglobin (test code = 785-6) 29.5 28-32 [facility] Hemoglobin Concent 2018-11-20 05:26:00* Test Item Value Reference Range Interpretation Comments Mean Corpuscular Hemoglobin Concent (test code = 786-4) 32.4 31-35 [facility] Distribution Hfqar5765-13-77 05:26:00* Test Item Value Reference Range Interpretation Comments Red Cell Distribution Width (test code = 64801-4) 17.9 11.7 -14.4 H [facility] Gqcww2236-10-82 05:26:00* Test Item Value Reference Range Interpretation Comments Platelet Count (test code = 777-3) 132 140-360 L [facility]utrophils (%) (Auto)2018-11-20 05:26:00 * Test Item Value Reference Range Interpretation Comments Neutrophils (%) (Auto) (test code = 58291-3) 73.7 38.7-80.0 [facility]ymph[facility] (%) (Auto)2018-11-20 05:26:00 * Test Item Value Reference Range Interpretation Comments Lymphocytes (%) (Auto) (test code = 736-9) 15.3 18.0-39.1 L [facility] (%) (Auto)2018-11-20 05:26:00* Test Item Value Reference Range Interpretation Comments Monocytes (%) (Auto) (test code = 5905-5) 5.6 4.4-11.3 [facility] ([facility])2018-11-20 05:26:00 * Test Item Value Reference Range Interpretation Comments Eosinophils (%) (Auto) (test code = 713-8) 4.6 0.0-6.0 [facility] ([facility])2018-11-20 05:26:00* Test Item Value Reference Range Interpretation Comments Basophils (%) (Auto) (test code = 706-2) 0.2 0.0-1.0 [facility] %2018-11-20 05:26:00* Test Item Value Reference Range Interpretation Comments IM GRANULOCYTES % (test code = IM GRANULOCYTES %) 0.6 0.0- 1.0 [facility] # (Auto)2018-11-20 05:26:00* Test Item Value Reference Range Interpretation Comments Neutrophils # (Auto) (test code = 751-8) 8.6 2.1-6.9 H [facility] # (Auto)2018-11-20 05:26:00* Test Item Value Reference Range Interpretation Comments Lymphocytes # (Auto) (test code = 22803-5) 1.8 1.0-3.2 [facility] # (Auto)2018-11-20 05:26:00* Test Item Value Reference Range Interpretation Comments Monocytes # (Auto) (test code = 742-7) 0.7 0.2-0.8 [facility] # (Auto)2018-11-20 05:26:00* Test Item Value Reference Range Interpretation Comments Eosinophils # (Auto) (test code = 711-2) 0.5 0.0-0.4 H [facility] # (Auto)2018-11-20 05:26:00* Test Item Value Reference Range Interpretation Comments Basophils # (Auto) (test code = 704-7) 0.0 0.0-0.1 [facility]Absolute Immature Granulocyte (auto 2018-11-20 05:26:00* Test Item Value Reference Range Interpretation Comments Absolute Immature Granulocyte (auto (dominique t code = Absolute Immature Granulocyte (auto) 0.07 0-0.1 [facility] HospitalBedside [id number] 00:44:00* Test Item Value Reference Range Interpretation Comments Bedside Glucose (test code = 90373-8) 164 70-120 H Meter ID: [id number] [facility] HospitalBlood Culture 2018-11-19 22:32:00* Test Item Value Reference Range Interpretation Comments Blood Culture (test code = 17877997) NO GROWTH AFTER 72 HOURS [facility] HospitalVitamin B12 Tglth5646-10-04 07:15:00* Test Item Value Reference Range Interpretation Comments Vitamin B12 Level (test code = 69892-3) 537 213-816 [facility]Folate2019-09-05 07:15:00* Test Item Value Reference Range Interpretation Comments Folate (test code = 2284-8) 16.9 7.0-15.4 H [facility] HospitalFerritin2019-09-05 07:14:00* Test Item Value Reference Range Interpretation Comments Ferritin (test code = 2276-4) 110.34 4.63-204.00 [facility] Pndvq8973-39-76 06:42:00* Test Item Value Reference Range Interpretation Comments Sodium Level (test code = 2951-2) 138 136-145 [facility] HospitalPotassium Etywz4441-01-50 06:42:00* Test Item Value Reference Range Interpretation Comments Potassium Level (test code = 2823-3) 3.7 3.5-5.1 [facility] HospitalChloride Pcbea2943-27-98 06:42:00* Test Item Value Reference Range Interpretation Comments Chloride Level (test code = 2075-0) 105 98-107 [facility] HospitalCarbon Dioxide Ekwgv0714-52-05 06:42:00* Test Item Value Reference Range Interpretation Comments Carbon Dioxide Level (test code = 2028-9) 27 22-29 [facility] HospitalAnion Sfb7502-46-34 06:42:00* Test Item Value Reference Range Interpretation Comments Anion Gap (test code = 92516-9) 9.7 8-16 [facility] HospitalBlood Urea Ikscfsyr2750-08-88 06:42:00* Test Item Value Reference Range Interpretation Comments Blood Urea Nitrogen (test code = 3094-0) 15 7-26 [facility] HospitalCreatinine2019-09-05 06:42:00* Test Item Value Reference Range Interpretation Comments Creatinine (test code = 2160-0) 0.71 0.57-1.11 [facility] HospitalBUN/Creatinine Bhtag8542-28-00 06:42:00* Test Item Value Reference Range Interpretation Comments BUN/Creatinine Ratio (test code = 3097-3) 21 6-25 [facility] HospitalEstimat Glomerular Filtration Rate 2018-11-19 06:42:00* Test Item Value Reference Range Interpretation Comments Estimat Glomerular Filtration Rate (test code = 364058532) > 60 >60 Ranges were taken from the National Kidney Disease Education Program and the [facility] literature.Reference ranges:60 or greater: Kaxljm05-26 ( for 3 consecutive months): Chronic kidney disease 15 or less: Kidney failureMethodist TexSan HospitalGlucose Ncaou6431-17-09 06:42:00* Test Item Value Reference Range Interpretation Comments Glucose Level (test code = ELR6109) 103 74-118 [facility] HospitalCalcium Htrpv0702-33-18 06:42:00* Test Item Value Reference Range Interpretation Comments Calcium Level (test code = 05847-5) 8.2 8.4-10.2 L [facility] HospitalT[facility] Vhjytinjo6037-37-53 06:42:00* Test Item Value Reference Range Interpretation Comments Total Bilirubin (test code = 1975-2) 0.6 0.2-1.2 [facility] HospitalAspartate Amino Transf (AST/SGOT) 2018-11-19 06:42:00* Test Item Value Reference Range Interpretation Comments Aspartate Amino Transf (AST/SGOT) (test code = Aspartate Amino Transf (AST/SGOT)) 36 5-34 H [facility] HospitalAlanine Aminotransferase (ALT/SGPT) 2018-11-19 06:42:00* Test Item Value Reference Range Interpretation Comments Alanine Aminotransferase (ALT/SGPT) (test code = 1742-6) 38 0-55 [facility] HospitalTotal Qnrzcsp6392-44-24 06:42:00* Test Item Value Reference Range Interpretation Comments Total Protein (test code = 2885-2) 4.5 6.5-8.1 L [facility] HospitalAlbumin2019-09-05 06:42:00* Test Item Value Reference Range Interpretation Comments Albumin (test code = 1751-7) 2.5 3.5-5.0 L [facility] HospitalGlobulin2019-09-05 06:42:00* Test Item Value Reference Range Interpretation Comments Globulin (test code = 66972-6) 2.0 2.3-3.5 L [facility] HospitalAlbumin/Globulin Ltpzw8609-35-47 06:42:00 * Test Item Value Reference Range Interpretation Comments Albumin/Globulin Ratio (test code = 1759-0) 1.3 0.8-2.0 [facility] HospitalAlkaline Ozwtoygwbqu0861-81-71 06:42:00* Test Item Value Reference Range Interpretation Comments Alkaline Phosphatase (test code = 6768-6) 39 40-150 L [facility] HospitalIron Jnkuu1713-72-53 06:37:00* Test Item Value Reference Range Interpretation Comments Iron Level (test code = 2498-4) 25 50-170 L [facility] HospitalTotal Iron Binding Gchdrxfq1256-12-32 06:37:00* Test Item Value Reference Range Interpretation Comments Total Iron Binding Capacity (test code = 2500-7) 230 261-4 78 L [facility] HospitalPercent Iron Azlzdzseue5461-52-58 06:37:00* Test Item Value Reference Range Interpretation Comments Percent Iron Saturation (test code = 2502-3) 11 15-50 L [facility] HospitalTransferrin2019-09-05 06:37:00* Test Item Value Reference Range Interpretation Comments Transferrin (test code = 3034-6) 164 180-382 L [facility] HospitalPercent Reticulocyte Boprv6239-29-85 06:22:00* Test Item Value Reference Range Interpretation Comments Percent Reticulocyte Count (test code = 98743-8) 5.6 0.8-2 .2 H [facility] HospitalTriglycerides Olykj6749-29-80 12:32:00* Test Item Value Reference Range Interpretation Comments Triglycerides Level (test code = 2571-8) 140 0-149 [facility] HospitalCholesterol Qzjsl0215-58-99 12:32:00* Test Item Value Reference Range Interpretation Comments Cholesterol Level (test code = 2093-3) 112 0-199 Less than 200 mg/dL Low Jkks238 - 239 mg/dL Borderline Zmpk581 m g/dl and greater High Risk [facility] HospitalLDL Yyzvfpmplnq5239-49-78 12:32:00* Test Item Value Reference Range Interpretation Comments LDL Cholesterol (test code = 2089-1) 60 60-130 [facility] HospitalHDL Saujmltknhe7735-80-13 12:32:00* Test Item Value Reference Range Interpretation Comments HDL Cholesterol (test code = 2085-9) 24 40-60 L [facility] HospitalCholesterol/HDL Whege9624-17-81 12:32:00 * Test Item Value Reference Range Interpretation Comments Cholesterol/HDL Ratio (test code = 9830-1) 4.7 3.0-3.6 H [facility] HospitalHemoglobin A1c Xyyvojl3672-16-59 12:31:00 * Test Item Value Reference Range Interpretation Comments Hemoglobin A1c Percent (test code = Hemoglobin A1c Percent) 6.3 4.0-7.0 [facility] HospitalCT ABDOMEN/PELVIS SC9391-06-66 23:26:00 [place] [address] Patient Name: GAURAV ESCOBEDO MR #: [id number] : 1940 Age/Sex: 78/F Req #: [id number] Adm Physician: Ordered by: LUCY REVELES MD Report #: [id number] Location: ER Room/Bed: Procedure: 0902- 0025 CT/CT ABDOMEN/PELVIS WO Exam Date: 11/16/18 Maliha rausch Time: 230 REPORT STATUS: Signed CT Abdomen and Pelvis without contrast INDICATION: BLACK STOOL, ANEM IA, 24K WBC Y TECHNIQUE: Thin collimation axial images obtained from the diaphragm to the level of the pubic symphysis without nonionic intravenous co ntrast. Dose reduction techniques used: Automated exposure control, adjust ment of the mAs and/or kVp according to patient size, standardized low-dose pr otocol, and/or iterative reconstruction technique. RADIATION DOSE: Total DLP: 846.7 mGy*cm Estimated effective dose: (DLP x 0.015 x size fa ctor) mSv CTDIvol has been reviewed. It is below the limits set by the [facility] Protocol Committee (RPC). COMPARISON: None. ABDOMEN FINDING S: Lung Bases: The heart is enlarged with calcifications of the coronary ar teries and aortic valve. Noncalcified nodule in the right middle lobe measures 3 mm. There is bibasilar atelectasis. The descending thoracic aorta is tortuo us with mural calcifications throughout. The chowdhury of the heart are visible more ggestive of anemia. Liver: Normal in attenuation without soft tissue mass . Punctate calcification in the dome suggestive of a granuloma. Gallbladd er: Present and appears normal. No ductal dilatation. Pancreas: Normal att enuation without mass. Spleen: Normal size without mass. Adrenal Gland s: No evidence for mass. Kidneys: Right: No renal calculus. No cortical mass or hydronephrosis Left: No renal calculus. No cortical mass or hydr onephrosis Lymph Nodes: No enlarged abdominal or periaortic lymph nodes. Aorta: Normal in diameter and diffusely calcified PELVIS FINDINGS: Bowel: Stomach: Normal. Small Bowel: Normal in caliber with normal wall thickness. Large Bowel: Diffuse diverticulosis, particularly of the descending colon and sigmoid colon. No associated inflammation. No significant burden of stool in the large bowel. Appendix: Normal. Bladder: Well distended. T here is a droplet of nondependent air at the dome. No mural thickening. U reters: No ureteral dilatation or calculus.. The uterus is absent. No adnex al mass. Peritoneum/retroperitoneum: No free fluid or fluid collection. B ones: Degenerative changes of the spine. No compression deformities. No lytic or blastic lesions. Soft tissues: Unremarkable. IMPRESSION: 1. D iverticulosis coli. No evidence of acute diverticulitis on this unenhanced CT. 2. No evidence of inflammation loculated fluid collection to suggest absc ess. 3. Droplet of nondependent air in the bladder may be the result of interpretation. 4. Atherosclerosis. Suspected anemia. Signed by: Dr. Liliana Garcia MD on 11/16/2018 11:31 PM Dictated By: CHRISTIANO GARCIA MD 30 Transcribed By: HA on 11/16/182330 COPY TO: LUCY REVELES MD Prothrombin Cmps1471-16-45 23:20:00* Test Item Value Reference Range Interpretation Comments Prothrombin Time (test code = 5902-2) 18.6 11.9-14.5 H [facility] HospitalProthromb Time International Ratio 2018-11-16 23:20:00* Test Item Value Reference Range Interpretation Comments Prothromb Time International Ratio (test code = 6301-6) 1.49 Oral Anticoagulant Therapy INR Values:1. Low Intensity Therapy 1.5 - 2.02 . Moderate Intensity Therapy 2.0 - 3.03. High Intensity Therapy(1) 2.5 - 3. 54. High Intensity Therapy(2) 3.0 - 4.05. Panic Value INR > 5.0 [facility] HospitalActivated Partial Thromboplast Time 2018-11-16 23:20:00* Test Item Value Reference Range Interpretation Comments Activated Partial Thromboplast Time (test code = 83854-8) 28.0 23.8-35.5 [facility] HospitalCHEST XRAY LINE WXXZVEPFR8334-81-82 22:32:00 [facility] [address] [place] [address] Patient Name: GAURAV ESCOBEDO MR #: [id number] : 1940 Age/Sex: 78/F Req #: [id number] Adm Physician: Ordered by: LUCY REVELES MD Report #: [id number] Location: ER Room/Bed: Procedure: 0902- 0030 DX/CHEST XRAY LINE PLACEMENT Exam Date: 11/16/18 Exam Time: 2209 REPORT STATUS: Si gned EXAMINATION: CHEST XRAY LINE PLACEMENT COMPARISON: Chest x-ray 2047 hours INDICATION: EVAL PICC PLACEMENT 20181116 Y DISCUSSION: Frontal view of the chest obtained at 2217 hours. HEART AND MEDIASTINUM: Stable cardiomegaly and tortuous aorta LINES: Right P ICC line terminates in the SVC without pneumothorax. LUNGS: Minimal bibasi lar atelectasis. No interstitial edema. No pneumonia or pulmonary edema. PLEURA: No pleural effusion or pneumothorax. BONES AND SOFT TISSUES: Stab le. IMPRESSION: Right PICC line terminates in the SVC without pneumot horax. No new cardiopulmonary findings. Signed by: Dr. Christiano Garcia MD on 11/16/2018 10:33 PM Dictated By: CHRISTIANO GARCIA MD 32 Transcribed By: HA on 11/16/182232 COPY TO: LUCY REVELES MD Urine WBC 2018-11-16 21:34:00* Test Item Value Reference Range Interpretation Comments Urine WBC (test code = 5821-4) NONE 0-5 [facility] HospitalUrine YMD8022-83-56 21:34:00* Test Item Value Reference Range Interpretation Comments Urine RBC (test code = 32067-4) NONE 0-5 [facility] HospitalUrine Hwxbifxq1993-01-28 21:34:00* Test Item Value Reference Range Interpretation Comments Urine Bacteria (test code = 85378-4) FEW NONE [facility] HospitalUrine Epithelial Ibdmf0044-70-17 21:34:00 * Test Item Value Reference Range Interpretation Comments Urine Epithelial Cells (test code = 71387-6) NONE NONE [facility] HospitalUrine Amorphous Vhcmwrtr5557-74-14 21:34:00* Test Item Value Reference Range Interpretation Comments Urine Amorphous Sediment (test code = 8246-1) MODERATE FEW H [facility] HospitalDifferential Total Cells Counted 2018-11-16 21:31:00* Test Item Value Reference Range Interpretation Comments Differential Total Cells Counted (test code = Differen tial Total Cells Counted) 100 [facility] HospitalNeutrophils % (Manual)2018-11-16 21:31:00 * Test Item Value Reference Range Interpretation Comments Neutrophils % (Manual) (test code = 88800-3) 91 40-74 H [facility] HospitalLymphocytes % (Manual)2018-11-16 21:31:00 * Test Item Value Reference Range Interpretation Comments Lymphocytes % (Manual) (test code = 737-7) 7 19-48 L [facility] HospitalMonocytes % (Manual)2018-11-16 21:31:00* Test Item Value Reference Range Interpretation Comments Monocytes % (Manual) (test code = 744-3) 1 3.4-9.0 L [facility] HospitalMetamyelocytes %2018-11-16 21:31:00* Test Item Value Reference Range Interpretation Comments Metamyelocytes % (test code = 740-1) 1 0-0 H [facility] HospitalHypochromasia2019-09-02 21:31:00* Test Item Value Reference Range Interpretation Comments Hypochromasia (test code = 728-6) SLIGHT [facility] HospitalMacrocytosis2019-09-02 21:31:00* Test Item Value Reference Range Interpretation Comments Macrocytosis (test code = 738-5) SLIGHT [facility] HospitalUrine Qnbnj2467-97-42 21:26:00* Test Item Value Reference Range Interpretation Comments Urine Color (test code = 5778-6) YELLOW YELLOW [facility] HospitalUrine Cyzvszk7767-55-98 21:26:00* Test Item Value Reference Range Interpretation Comments Urine Clarity (test code = 90938-7) SL CLOUDY CLEAR [facility] HospitalUrine Specific Qyxwnsk3229-43-56 21:26:00 * Test Item Value Reference Range Interpretation Comments Urine Specific [place] (test code = 5811-5) 1.020 1.010-1.02 5 [facility] HospitalUrine cR9586-36-69 21:26:00* Test Item Value Reference Range Interpretation Comments Urine pH (test code = 02649-6) 5.5 5-7 [facility] HospitalUrine Leukocyte Xiykgsmd7295-70-64 21:26:00* Test Item Value Reference Range Interpretation Comments Urine Leukocyte Esterase (test code = 15767-6) NEGATIVE NEGATIV E [facility] HospitalUrine Njlxyaq9140-98-47 21:26:00* Test Item Value Reference Range Interpretation Comments Urine Nitrite (test code = 59141-4) NEGATIVE NEGATIVE [facility] HospitalUrine Jiicxdm0311-62-33 21:26:00* Test Item Value Reference Range Interpretation Comments Urine Protein (test code = 87683-7) NEGATIVE NEGATIVE [facility] HospitalUrine Glucose (UA)2018-11-16 21:26:00* Test Item Value Reference Range Interpretation Comments Urine Glucose (UA) (test code = 50867-8) NEGATIVE NEGATIVE [facility] HospitalUrine Vtwccyd3181-50-93 21:26:00* Test Item Value Reference Range Interpretation Comments Urine Ketones (test code = 25667-5) TRACE NEGATIVE H [facility] HospitalUrine Bhjlqjvdiufk0431-56-05 21:26:00* Test Item Value Reference Range Interpretation Comments Urine Urobilinogen (test code = 67829-8) 0.2 0.2-1 [facility] HospitalUrine Huryduqlg9163-15-48 21:26:00* Test Item Value Reference Range Interpretation Comments Urine Bilirubin (test code = 1977-8) NEGATIVE NEGATIVE [facility] HospitalUrine Wtxbp6442-26-97 21:26:00* Test Item Value Reference Range Interpretation Comments Urine Blood (test code = 69873-7) NEGATIVE NEGATIVE [facility] HospitalCHEST SINGLE (PORTABLE)2018-11-16 21:17:00 [place] [address] Patient Name: GAURAV ESCOBEDO MR #: [id number] : 1940 Age/Sex: 78/F Req #: [id number] Adm Physician: Ordered by: LUCY REVELES MD Report #: [id number] Location: ER Room/Bed: Procedure: 0902- 0027 DX/CHEST SINGLE (PORTABLE) Exam Date: 11/16/18 Exam Time: 2029 REPORT STATUS: Sign ed EXAMINATION: CHEST SINGLE (PORTABLE) COMPARISON: Chest x-ray 10/16 INDICATION: sob, chest pain 20181116 Y DIS CUSSION: Frontal view of the chest obtained at 2048 hours. HEART AND MEDI ASTINUM: The heart is enlarged. The aorta is tortuous LINES: None. LUNGS: The lungs are well inflated and clear. Mild central pulmonary vascular prominence is similar. PLEURA: No pleural effusion or pneumothorax. Stable eventration of the right diaphragm. BONES AND SOFT TISSUES: No focal osseous lesion. The soft tissues are normal. IMPRESSION: Stable cardiome jase and pulmonary venous hypertension. No acute cardiopulmonary process. Signed by: Dr. Christiano Garcia MD on 11/16/2018 9:19 PM Dictated By: HOLLINGSWORTH MD 2 119 Transcribed By: HA on 11/16/187 COPY TO: JAY JAY REVELES MD B-Type Natriuretic Tfzplzo7339-74-73 21:13:00* Test Item Value Reference Range Interpretation Comments B-Type Natriuretic Peptide (test code = 55215-2) 151.2 0-100 H [facility] HospitalCreatine Kinase IL7394-53-42 21:13:00* Test Item Value Reference Range Interpretation Comments Creatine Kinase MB (test code = 82789-4) 1.10 0-5.0 [facility] HospitalTroponin G4878-18-43 21:13:00* Test Item Value Reference Range Interpretation Comments Troponin I (test code = QVT0136) 0.027 0-0.300 [facility] Texastool Occult Lweui4945-35-70 21:12:00* Test Item Value Reference Range Interpretation Comments Stool Occult Blood (test code = 2335-8) POSITIVE NEGATIVE H [facility] HospitalCreatine Xwsvte5191-73-79 21:01:00* Test Item Value Reference Range Interpretation Comments Creatine Kinase (test code = 2157-6) 16 29-168 L [facility] HospitalBedside Makolmd7094-92-19 11:24:00* Test Item Value Reference Range Interpretation Comments Bedside Glucose (test code = 82698-9) 225 70-120 H Meter ID: [id number] Hospitals [facility] Trans[facility] CampusWhite Blood Count 2018-11-06 08:13:00* Test Item Value Reference Range Interpretation Comments White Blood Count (test code = 6690-2) 10.02 4.8-10.8 [facility] HospitalRed Blood Lvrpv8839-55-81 08:13:00* Test Item Value Reference Range Interpretation Comments Red Blood Count (test code = 789-8) 4.10 3.6-5.1 [facility] HospitalHemoglobin2019-08-23 08:13:00* Test Item Value Reference Range Interpretation Comments Hemoglobin (test code = 33091-1) 12.3 12.0-16.0 [facility] HospitalHematocrit2019-08-23 08:13:00* Test Item Value Reference Range Interpretation Comments Hematocrit (test code = 4544-3) 37.3 34.2-44.1 [facility] HospitalMean Corpuscular Mgehxr4182-75-15 08:13:00* Test Item Value Reference Range Interpretation Comments Mean Corpuscular Volume (test code = 787-2) 91.0 81-99 [facility] HospitalMean Corpuscular Ximzqxkqqt6652-93-97 08:13:00* Test Item Value Reference Range Interpretation Comments Mean Corpuscular Hemoglobin (test code = 785-6) 30.0 28-32 [facility] HospitalMean Corpuscular Hemoglobin Concent 2018-11-06 08:13:00* Test Item Value Reference Range Interpretation Comments Mean Corpuscular Hemoglobin Concent (test code = 786-4) 33.0 31-35 [facility] HospitalRed Cell Distribution Vsssk9598-90-18 08:13:00* Test Item Value Reference Range Interpretation Comments Red Cell Distribution Width (test code = 27802-9) 13.9 11.7 -14.4 [facility] HospitalPlatelet Utdyw5116-80-43 08:13:00* Test Item Value Reference Range Interpretation Comments Platelet Count (test code = 777-3) 182 140-360 [facility] HospitalNeutrophils (%) (Auto)2018-11-06 08:13:00 * Test Item Value Reference Range Interpretation Comments Neutrophils (%) (Auto) (test code = 76419-6) 62.1 38.7-80.0 [facility] HospitalLymphocytes (%) (Auto)2018-11-06 08:13:00 * Test Item Value Reference Range Interpretation Comments Lymphocytes (%) (Auto) (test code = 736-9) 24.2 18.0-39.1 [facility] HospitalMonocytes (%) (Auto)2018-11-06 08:13:00* Test Item Value Reference Range Interpretation Comments Monocytes (%) (Auto) (test code = 5905-5) 9.6 4.4-11.3 [facility] HospitalEosinophils (%) (Auto)2018-11-06 08:13:00 * Test Item Value Reference Range Interpretation Comments Eosinophils (%) (Auto) (test code = 713-8) 3.2 0.0-6.0 [facility] HospitalBasophils (%) (Auto)2018-11-06 08:13:00* Test Item Value Reference Range Interpretation Comments Basophils (%) (Auto) (test code = 706-2) 0.5 0.0-1.0 [facility] HospitalIM GRANULOCYTES %2018-11-06 08:13:00* Test Item Value Reference Range Interpretation Comments IM GRANULOCYTES % (test code = IM GRANULOCYTES %) 0.4 0.0- 1.0 [facility] HospitalNeutrophils # (Auto)2018-11-06 08:13:00* Test Item Value Reference Range Interpretation Comments Neutrophils # (Auto) (test code = 751-8) 6.2 2.1-6.9 [facility] HospitalLymphocytes # (Auto)2018-11-06 08:13:00* Test Item Value Reference Range Interpretation Comments Lymphocytes # (Auto) (test code = 25195-7) 2.4 1.0-3.2 [facility] HospitalMonocytes # (Auto)2018-11-06 08:13:00* Test Item Value Reference Range Interpretation Comments Monocytes # (Auto) (test code = 742-7) 1.0 0.2-0.8 H [facility] HospitalEosinophils # (Auto)2018-11-06 08:13:00* Test Item Value Reference Range Interpretation Comments Eosinophils # (Auto) (test code = 711-2) 0.3 0.0-0.4 [facility] HospitalBasophils # (Auto)2018-11-06 08:13:00* Test Item Value Reference Range Interpretation Comments Basophils # (Auto) (test code = 704-7) 0.1 0.0-0.1 [facility] HospitalAbsolute Immature Granulocyte (auto 2018-11-06 08:13:00* Test Item Value Reference Range Interpretation Comments Absolute Immature Granulocyte (auto (dominique t code = Absolute Immature Granulocyte (auto) 0.04 0-0.1 [facility] Texasodium Gqqab4606-61-95 08:11:00* Test Item Value Reference Range Interpretation Comments Sodium Level (test code = 2951-2) 139 136-145 [facility] HospitalPotassium Thgra7165-54-19 08:11:00* Test Item Value Reference Range Interpretation Comments Potassium Level (test code = 2823-3) 4.5 3.5-5.1 [facility] HospitalChloride Hpnnh9240-74-97 08:11:00* Test Item Value Reference Range Interpretation Comments Chloride Level (test code = 2075-0) 104 98-107 [facility] HospitalCarbon Dioxide Lihow0258-28-97 08:11:00* Test Item Value Reference Range Interpretation Comments Carbon Dioxide Level (test code = 2028-9) 28 22-29 [facility] HospitalAnion Yoa1887-16-81 08:11:00* Test Item Value Reference Range Interpretation Comments Anion Gap (test code = 05270-9) 11.5 8-16 [facility] HospitalBlood Urea Nrfomidf2819-61-94 08:11:00* Test Item Value Reference Range Interpretation Comments Blood Urea Nitrogen (test code = 3094-0) 23 7-26 [facility] HospitalCreatinine2019-08-23 08:11:00* Test Item Value Reference Range Interpretation Comments Creatinine (test code = 2160-0) 0.72 0.57-1.11 [facility] HospitalBUN/Creatinine Yytue3205-63-58 08:11:00* Test Item Value Reference Range Interpretation Comments BUN/Creatinine Ratio (test code = 3097-3) 32 6-25 H [facility] HospitalEstimat Glomerular Filtration Rate 2018-11-06 08:11:00* Test Item Value Reference Range Interpretation Comments Estimat Glomerular Filtration Rate (test code = 257912967) > 60 >60 Ranges were taken from the National Kidney Disease Education Program and the [facility] Kid[facility] Foundation literature.Reference ranges:60 or greater: Zmsgjp01-10 ( for 3 consecutive months): Chronic kidney disease 15 or less: Kidney failureMethodist TexSan HospitalGlucose Tohju8465-91-24 08:11:00* Test Item Value Reference Range Interpretation Comments Glucose Level (test code = DUQ9541) 113 74-118 [facility] HospitalCalcium Eqsyr2236-73-19 08:11:00* Test Item Value Reference Range Interpretation Comments Calcium Level (test code = 92101-6) 9.2 8.4-10.2 [facility] HospitalB-Type Natriuretic Wqxpzyn1662-74-85 21:20:00* Test Item Value Reference Range Interpretation Comments B-Type Natriuretic Peptide (test code = 78099-2) 104.3 0-100 H [facility] HospitalCreatine Kinase CQ5537-55-08 10:55:00* Test Item Value Reference Range Interpretation Comments Creatine Kinase MB (test code = 88623-0) 6.70 0-5.0 H [facility] HospitalTroponin V0009-58-37 10:55:00* Test Item Value Reference Range Interpretation Comments Troponin I (test code = HDP3791) 0.024 0-0.300 [facility] HospitalCreatine Oohhwv6360-49-33 10:48:00* Test Item Value Reference Range Interpretation Comments Creatine Kinase (test code = 2157-6) 99 29-168 [facility] HospitalTriglycerides Pwjjn0329-34-93 07:39:00* Test Item Value Reference Range Interpretation Comments Triglycerides Level (test code = 2571-8) 56 0-149 [facility] HospitalCholesterol Nkeix6110-86-09 07:39:00* Test Item Value Reference Range Interpretation Comments Cholesterol Level (test code = 2093-3) 184 0-199 Less than 200 mg/dL Low Oafr449 - 239 mg/dL Borderline Hdpz196 m g/dl and greater High Risk [facility] HospitalLDL Naoazikfowm0626-53-68 07:39:00* Test Item Value Reference Range Interpretation Comments LDL Cholesterol (test code = 2089-1) 120 60-130 [facility] HospitalHDL Hzutaowhrsp8698-03-06 07:39:00* Test Item Value Reference Range Interpretation Comments HDL Cholesterol (test code = 2085-9) 53 40-60 [facility] HospitalCholesterol/HDL Oubre5654-62-05 07:39:00 * Test Item Value Reference Range Interpretation Comments Cholesterol/HDL Ratio (test code = 9830-1) 3.5 3.0-3.6 [facility] [id number] 07:38:00 * Test Item Value Reference Range Interpretation Comments Hemoglobin A1c Percent (test code = Hemoglobin A1c Percent) 7.2 4.0-7.0 [facility]2018-11-03 06:51:00 [place] [address] Patient Name: GAURAV ESCOBEDO MR #: [id number] : 1940 Age/Sex: 78/F Req #: [id number] Adm Physician: FRANKLIN CEVALLOS MD Ordered by: MADDY LEONG [employer] Report #: [id number] Location: MED/SURG Room/Bed: [facility] Procedure: [id number] DX /CHEST SINGLE (PORTABLE) Exam Date: 11/03/18 Exam Ti me: 0545 REPORT STATUS: Signed E XAMINATION: CHEST SINGLE (PORTABLE) INDICATION: Short of breath COMPARISON: None FINDINGS: AP view TUBES and LINES: Non e. LUNGS: Lungs are not well inflated. There is mild prominence of the ce ntral pulmonary vasculature, consistent with pulmonary venous congestion. PLEURA: No pleural effusion or pneumothorax. HEART AND MEDIASTINUM: The cardiomediastinal silhouette is mildly enlarged. Aortic arch calcifications. BONES AND SOFT TISSUES: No acute osseous lesion. Soft tissues are unrema rkable. UPPER ABDOMEN: No free air under the diaphragm. IMPRESSION : Unchanged exam with mild cardiomegaly and pulmonary vascular congestion. Signed by: Tae Jarquin DO on 11/03/2018 6:52 AM Dictated By: HARRY JARQUIN DO 1 Transcribed By: HA on 11/03/18651 COPY TO: MADDY LEONG NP Total [id number] 03:45:00* Test Item Value Reference Range Interpretation Comments Total Bilirubin (test code = 1974-) 0.3 0.2-1.2 [facility] Amino Transf (AST/SGOT) 2018-11-03 03:45:00* Test Item Value Reference Range Interpretation Comments Aspartate Amino Transf (AST/SGOT) (test code = Aspartate Amino Transf (AST/SGOT)) 12 5-34 [facility] Aminotransferase (ALT/SGPT) 2018-11-03 03:45:00* Test Item Value Reference Range Interpretation Comments Alanine Aminotransferase (ALT/SGPT) (test code = 1742-6) 13 0-55 [facility]Total Knatlke9585-20-59 03:45:00* Test Item Value Reference Range Interpretation Comments Total Protein (test code = 2885-2) 6.6 6.5-8.1 [facility]2019-08-20 03:45:00* Test Item Value Reference Range Interpretation Comments Albumin (test code = 1751-7) 3.5 3.5-5.0 [facility]ulin2019-08-20 03:45:00* Test Item Value Reference Range Interpretation Comments Globulin (test code = 74932-8) 3.1 2.3-3.5 [facility]Globulin Vywyp1328-06-84 03:45:00 * Test Item Value Reference Range Interpretation Comments Albumin/Globulin Ratio (test code = 1759-0) 1.1 0.8-2.0 [facility]Alkaline Gilqhqmudpv1158-25-04 03:45:00* Test Item Value Reference Range Interpretation Comments Alkaline Phosphatase (test code = 6768-6) 65 40-150 [facility]Magnesium Jyfho8725-25-69 19:37:00* Test Item Value Reference Range Interpretation Comments Magnesium Level (test code = 34831-8) 2.0 1.3-2.1 [facility] Ccbqb2778-67-61 19:37:00* Test Item Value Reference Range Interpretation Comments Magnesium Level (test code = 39432-9) 2.0 1.3-2.1 [facility]2018-11-02 18:32:00 [facility] [address] [place] [address] Patient Name: GAURAV ESCOBEDO MR #: [id number] : 1940 Age/Sex: 78/F Req #: [id number] Adm Physician: Ordered by: JOSE STONE MD Report #: [id number] Location: ER Room/Bed: Procedure: [id number] DX/CHEST SINGLE (PORTABLE) Exam Date: 11/02/18 Exa m Time: 1800 REPORT STATUS: Signed EXAMINATION: CHEST SINGLE (PORTABLE) COMPARISON: None INDICATI ON: Shortness of breath for 2 weeks SOB [id number] DISCUSSIO N: Frontal view of the chest obtained at 1807 hours. HEART AND MEDIASTINU M: The heart is enlarged LINES: None. LUNGS: Pulmonary vasculatur e is prominent. Lung volumes are diminished with bibasilar atelectasis or infi ltrate. PLEURA: No pleural effusion or pneumothorax. BONES AND SOFT T ISSUES: Nonspecific inferior subluxation of the right humeral head. This may b e positional. No focal osseous lesion. The soft tissues are normal. IM PRESSION: Cardiomegaly and vascular congestion. Bibasilar atelectasis or infiltrate. Please correlate with PA and lateral chest x-ray if clinically fe asible. Signed by: Dr. Christiano Garcia MD on 11/02/2018 6:34 PM Di ctated By: CHRISTIANO GARCIA MD 33 Transcribed By: HA on 11/02/181833 COPY TO: OJSE DAVID MD [place] [address] Patient Name: GAURAV ESCOBEDO MR #: [id number] : 1940 Age/Sex: 76/F Req #: [id number] Adm Physician: Ordered by: LULA ISABEL MD Report #: [id number] Location: ER Room/Bed: Procedure: [id number] DX/FOOT LEFT COMPLETE Exam Date: 02/02/17 Exam Time: 1210 REPORT STATUS: Signed Left foot - 3 views HISTORY: Pain. COMPARISON: None available. FINDINGS: Bones: No acute displaced fracture. No expansile lytic or sclerotic lesion. Joints: The joint spaces are well-maintained. No dislocation. Soft tissues: The soft tissues appear unremarkable. IMP RESSION: No acute radiographic abnormality. Signed by: Dr. Ban Davis M.D. on 02/02/2017 12:31 PM Dictated By: BAN DAVIS MD Electronically S igned By: BAN DAVIS MD on 02/02/17 1231 Transcribed By: HA on 02/02/17 1 231 COPY TO: LULA ISABEL MD ANKLE 3+ VIEWS LEFT [place] [address] Patient Name: GAURAV ESCOBEDO MR #: [id number] : 1940 Age/Sex: 76/F Req #: [id number] Adm Physician: Ordered by: LULA ISABEL MD Report #: [id number] Location: ER Room/Bed: Procedure: [id number] DX/ANKLE 3+ VIEWS LEFT Exa m Date: 02/02/17 Exam Time: 1210 REPORT STATUS: Signed Left Ankle - 3 views HISTORY: Pain. COMPARISON: None availabl e. FINDINGS: Bones: No acute displaced fracture. No expansile ly tic or sclerotic lesion. Joints: The joint spaces are well-maintained. N o dislocation. Soft tissues: The soft tissues appear unremarkable. I MPRESSION: No acute radiographic abnormality. Signed by: Dr. Ban Davis M.D. on 02/02/2017 12:32 PM Dictated By: BAN DAVIS MD 1232 Transcribed By: HA on 02/02/17 1232 COPY TO: LULA ISABEL MD
--- OUTSIDE RECORDS SUMMARY | 2019-12-22 14:11 | XMS REPORT | Continuity of Care Document ---
Author Author [facility] t Organization [facility] Address [address] [place] [address] Phone Unavailable Care Team Providers Care Map Plotter Name Role Phone BRCYE MILLARD, JABIER PCP Christopher Saleh Attphys Unavailable DAHU, S NEETARIES Attphys Unavailable Tahmina REVELES Attphys Unavailable FRANKLIN CEVALLOS Attphys Unavailable Rafat ISABEL Attphys Unavailable DAHU, S JIRIES Admphys Unavailable FRANKLIN CEVALLOS Admphys Unavailable Payers Payer Name Policy Type Policy Number Effective Date Expiration Date Marcial Adams Medicare Advantage [id number] 2018 00:00:00 [facility] Problems Condition Name Condition Details Condition Category Status Onset Date Resolution Date Last Treatment Date Treating Clinician Comments Source Bronchitis Bronchitis Problem Active [facility] Chronic obstructive pulmonary disease COPD (chronic ob structive pulmonary disease) Problem Active [facility] Chest pain Chest pain Problem Active [facility] Gastrointestinal hemorrhage GI bleed Problem Active [facility] Leukocytosis Leukocytosis Problem Active [facility] Secondary anemia Symptomatic anemia Problem Active [facility] Allergies, Adverse Reactions, Alerts Allergy Name Allergy Type Status Severity Reaction(s) Onset Date Inacti ve Date Treating Clinician Comments Source diclofenac sodium DA Active SV 2019-02-04 00:00:00 [facility] diphenhydramine HCl DA Active MO 2019-02-04 00:00:00 [facility] fluvastatin sodium DA Active NV 2019-02-04 00:00:00 [facility] atorvastatin calcium DA Active NV 2019-02-04 00:00:00 [facility] Cephalexin Monohydrate DA Active MO 2019-02-04 00:00:00 [facility] guaifenesin DA Active MO 2019-02-04 00:00:00 [facility] iodine DA Active NV 2019-02-04 00:00:00 [facility] misoprostol DA Active NV 2019-02-04 00:00:00 [facility] morphine DA Active NV 2019-02-04 00:00:00 [facility] codeine DA Active MO 2019-02-04 00:00:00 [facility] acetaminophen DA Active MO 2019-02-04 00:00:00 [facility] metaxalone DA Active MO 2019-02-04 00:00:00 [facility] ibuprofen DA Active MO 2019-02-04 00:00:00 [facility] sulfamethoxazole DA Active NV 2019-02-04 00:00:00 [facility] trimethoprim DA Active NV 2019-02-04 00:00:00 [facility] isradipine DA Active NV 2019-02-04 00:00:00 [facility] clarithromycin DA Active MO 2019-02-04 00:00:00 [facility] simvastatin DA Active MO 2019-02-04 00:00:00 [facility] metoprolol DA Active MO 2019-02-04 00:00:00 [facility] amlodipine DA Active MO 2019-02-04 00:00:00 [facility] tramadol DA Active MO 2019-02-04 00:00:00 [facility] minocycline DA Active MO 2019-02-04 00:00:00 [facility] losartan DA Active SV 2019-02-04 00:00:00 [facility] clopidogrel DA Active SV 2019-02-04 00:00:00 [facility] celecoxib DA Active MO 2019-02-04 00:00:00 [facility] rofecoxib DA Active MO 2019-02-04 00:00:00 [facility] pregabalin DA Active MO 2019-02-04 00:00:00 [facility] diphenhydramine HCl Allergy to Substance Active Mild ITCHIN G, SWELLING 2016-06-24 00:00:00 [facility] fluvastatin sodium Allergy to Substance Active RASH, S WELLING 2016-06-24 00:00:00 [facility] atorvastatin calcium Allergy to Substance Active Mild RASH, SWELLING 2016-06-24 00:00:00 [facility] Cephalexin Monohydrate Allergy to Substance Active Mild ITC JESSE SWELLING 2016-06-24 00:00:00 [facility] clopidogrel bisulfate Allergy to Substance Active 2016-06-15 0 00:00:00 [facility] Guaifenesin Allergy to Substance Active Mild ITCHING, SWELL ING 2016-06-24 00:00:00 [facility] Iodine Allergy to Substance Active Mild RASH, SWELLING 2016-06-24 0 0:00:00 [facility] Misoprostol Allergy to Substance Active RASH, SWELLING 00:00:00 [facility] Morphine Allergy to Substance Active 2016-06-24 00:00:00 [facility] Codeine Allergy to Substance Active Mild 2016-06-24 00:00:00 [facility] Metaxalone Allergy to Substance Active Mild ITCHING, SWELLI NG 2016-06-24 00:00:00 [facility] Ibuprofen Allergy to Substance Active Mild ITCHING, SWELLI NG 2016-06-24 00:00:00 [facility] Trimethoprim Allergy to Substance Active Mild RASH, SWELLIN G 2016-06-24 00:00:00 [facility] Clarithromycin Allergy to Substance Active RASH SWELLING 2016-06-24 00:00:00 [facility] Simvastatin Allergy to Substance Active RASH, SWELLING 00:00:00 [facility] Metoprolol Allergy to Substance Active 2016-06-24 00:00:00 [facility] Amlodipine Allergy to Substance Active RASH 2016-06-24 00:00:00 [facility] Diclofenac Allergy to Substance Active RASH, SWELLING 2016-06-15 0 00:00:00 [facility] Verapamil Allergy to Substance Active RASH,SWELLING 2016-06-24 00: 00:00 [facility] Celecoxib Allergy to Substance Active Mild ITCHING, JOE CUADRA 2016-06-24 00:00:00 [facility] Rofecoxib Allergy to Substance Active Mild ITCHING, JOE CUADRA 2016-06-24 00:00:00 [facility] ZORCOR Allergy to Substance Active Mild 2016-06-24 00:00:00 [facility] ARTHROTEC Allergy to Substance Active RASH, SWELLING 2016-04-12 00:00:00 [facility] BYNACVC Allergy to Substance Active RASH,SWELLING 2016-04-12 00:00 :00 [facility] diclofenac sodium DA Active NV 2012-08-26 00:00:00 [facility] diphenhydramine HCl DA Active MO 2012-08-26 00:00:00 [facility] fluvastatin sodium DA Active NV 2012-08-26 00:00:00 [facility] atorvastatin calcium DA Active NV 2012-08-26 00:00:00 [facility] Cephalexin Monohydrate DA Active MO 2012-08-26 00:00:00 [facility] guaifenesin DA Active MO 2012-08-26 00:00:00 [facility] iodine DA Active NV 2012-08-26 00:00:00 [facility] misoprostol DA Active NV 2012-08-26 00:00:00 [facility] morphine DA Active NV 2012-08-26 00:00:00 [facility] codeine DA Active MO 2012-08-26 00:00:00 [facility] acetaminophen DA Active MO 2012-08-26 00:00:00 [facility] metaxalone DA Active MO 2012-08-26 00:00:00 [facility] ibuprofen DA Active MO 2012-08-26 00:00:00 [facility] sulfamethoxazole DA Active NV 2012-08-26 00:00:00 [facility] trimethoprim DA Active NV 2012-08-26 00:00:00 [facility] isradipine DA Active NV 2012-08-26 00:00:00 [facility] celecoxib DA Active MO 2012-08-26 00:00:00 [facility] rofecoxib DA Active MO 2012-08-26 00:00:00 [facility] BERELAN DA Active NV 2012-08-26 00:00:00 [facility] SOCOR DA Active NV 2012-08-26 00:00:00 [facility] BERELAN Allergy to Substance Active Mild RASH, SWELLING 2012-07-08 0 0:00:00 [facility] BLAXIN Allergy to Substance Active Mild RASH, SWELLING 2012-07-08 0 0:00:00 [facility] Medications Ordered Medication Name Filled Medication Name Start Date Stop Da te Current Medication? Ordering Clinician Indication Dosage Frequency Signature (SIG) Comments Components Source Furosemide 40 Mg Tablet Furosemide 40 Mg Tablet 2018-11-06 00:00:00 Yes Franklin Cevallos Md 40 Daily [facility] Benzonatate (Tessalon Perle) 100 Mg Capsule Benzonatat e (Tessalon Perle) 100 Mg Capsule 2018-11-05 00:00:00 Yes Franklin Cevallos Md 100 Every 8 Hours [facility] Levofloxacin (Levaquin) 500 Mg Tablet, 500 Mg Oral Lev ofloxacin (Levaquin) 500 Mg Tablet, 500 Mg Oral 2018-11-05 00:00:00 2018-11-20 00:00:00 No C nanda Cevallos Md 500 Daily [facility] Alprazolam (Xanax) 0.25 Mg Tablet Alprazolam (Xanax) 0.25 Mg Tablet Yes .25 As Needed [facility] Carvedilol 3.125 Mg Tablet Carvedilol 3.125 Mg Tablet Yes 3.125 Twice A Day [facility] Cinnamon Bark (Cinnamon) 500 Mg Capsule Cinnamon Bark (Cinna mon) 500 Mg Capsule Yes 1000 Daily [facility] Doxazosin Mesylate 2 Mg Tablet Doxazosin Mesylate 2 Mg Tablet Yes 4 Daily [facility] Glimepiride 2 Mg Tablet Glimepiride 2 Mg Tablet Yes 2 Twice A Day [facility] Gluc More/Chondro More A/Vit C/Mn (Glucosamine Chondroitin Tab) 1 Each Tablet Gluc More/Chondro More A/Vit C/Mn (Glucosamine Chondroitin Tab) 1 Each Tablet Yes 1 Daily [facility] Hydralazine Hcl 25 Mg Tab Hydralazine Hcl 25 Mg Tab Yes 25 Three Times A Day [facility] Insulin Glargine (Lantus) 100 Units/Ml Ml Insulin Glar gine (Lantus) 100 Units/Ml Ml Yes 50 Bedtime [facility] Multivitamin/Iron/Folic Acid (Centrum Complete Multivi t Tab) 1 Each Tablet Multivitamin/Iron/Folic Acid (Centrum Complete Multivit Tab) 1 Each Tablet Yes 1 Daily [facility] Turmeric Turmeric Yes 1 Daily [facility] Rivaroxaban (Xarelto) 20 Mg Tablet, 20 Mg Oral Rivarox aban (Xarelto) 20 Mg Tablet, 20 Mg Oral 2018-11-20 00:00:00 No 20 Daily @1700 [facility] Aspirin , 81 Mg Oral Aspirin , 81 Mg Oral 2018-11-16 00:00:00 No 81 Bedtime [facility] Clonidine Hcl 0.2 Mg Tablet, 0.2 Mg Oral Clonidine Hcl 0.2 Mg Tablet, 0.2 Mg Oral 2018-11-05 00:00:00 No .2 Every 12 Hours [facility] Azithromycin (Z-Ky) 250 Mg Tablet, 250 Mg Oral Azithr omycin (Z-Ky) 250 Mg Tablet, 250 Mg Oral 2018-11-03 00:00:00 No 250 Use As Directed [facility] Cephalexin 500 Mg Capsule, 500 Mg Oral Cephalexin 500 Mg Capsule , 500 Mg Oral 2018-11-02 00:00:00 No 500 Three Times A Day [facility] Glucosamine Sulfate 2KCL (Glucosamine) 1,000 Mg Tablet , 1000 Mg Oral Glucosamine Sulfate 2KCL (Glucosamine) 1,000 Mg Tablet, 1000 Mg Oral 201 11-22-18 00:00:00 No 1000 Daily [facility] Levofloxacin (Levaquin) 500 Mg Tablet, 500 Mg Oral Lev ofloxacin (Levaquin) 500 Mg Tablet, 500 Mg Oral 2018-11-02 00:00:00 No 500 D aily [facility] Losartan Potassium 100 Mg Tablet, 100 Mg Oral Losartan Potassium 100 Mg Tablet, 100 Mg Oral 2018-11-02 00:00:00 No 100 Daily [facility] Prednisone 10 Mg Tab, 10 Mg Oral Prednisone 10 Mg Tab, 10 Mg Ora l 2018-11-02 00:00:00 No 10 Titrate [facility] Amoxicillin 250 Mg Capsule, 500 Mg Oral Amoxicillin 250 Mg C apsule, 500 Mg Oral 2016-07-01 00:00:00 No 500 Three Times A Day [facility] Alprazolam 0.5 Mg Tablet, 0.5 Mg Oral Alprazolam 0.5 Mg Tablet, 0.5 Mg Oral 2016-06-24 00:00:00 No .5 As Needed [facility] Fexofenadine Hcl (Sophie Allergy) 60 Mg Tablet, 60 Mg Oral Fexofenadine Hcl (Sophie Allergy) 60 Mg Tablet, 60 Mg Oral 2016-06-24 00:00:00 No 60 Daily [facility] Fish Oil , Oral Fish Oil , Oral 2016-06-24 00:00:00 No Daily [facility] Flonase , Nasal Flonase , Nasal 2016-06-24 00:00:00 No As Needed [facility] Metformin Hcl 500 Mg Tablet, 500 Mg Oral Metformin Hcl 500 Mg Tablet, 500 Mg Oral 2016-06-24 00:00:00 No 500 Daily [facility] Montelukast Sodium 10 Mg Tablet, 10 Mg Oral Montelukas t Sodium 10 Mg Tablet, 10 Mg Oral 2016-06-24 00:00:00 No 10 As Needed [facility] Nitroglycerin 0.4 Mg Tab.subl, 0.4 Mg Sublingual Nitro glycerin 0.4 Mg Tab.subl, 0.4 Mg Sublingual 2016-06-24 00:00:00 No .4 As Nee ded [facility] Rutin/Hesp Cm/Biofl/Trina/Hc111 (Bioflex Tablet) 1 Each Tablet, Oral Rutin/Hesp Cm/Biofl/Trina/Hc111 (Bioflex Tablet) 1 Each Tablet, Oral 2016-06-24 00:00:00 No Daily [facility] Turmeric , Oral Turmeric , Oral 2016-06-24 00:00:00 No Daily [facility] Glipizide (Glipizide Er) 2.5 Mg Tab.er.24, 2.5 Mg Oral Glipizide (Glipizide Er) 2.5 Mg Tab.er.24, 2.5 Mg Oral 2016-04-12 00:00:00 No 2.5 Daily [facility] Albuterol Sulfate (Ventolin Hfa) 18 Gm Hfa.aer.ad, 2 S prays Inhalation Albuterol Sulfate (Ventolin Hfa) 18 Gm Hfa.aer.ad, 2 Sprays Inhalation 2016-04-11 00:00:00 No 2 As Needed [facility] Diclofenac Epolamine (Flector) 1 Each Adh..patch, 50 M g Oral Diclofenac Epolamine (Flector) 1 Each Adh..patch, 50 Mg Oral 2016-04-11 00:00:00 No 50 As Needed [facility] Losartan/Hydrochlorothiazide (Losartan-H ctz 100-25 Mg Tab) 1 Each Tablet, 1 Tab Oral Losartan/Hydrochlorothiazide (Losartan-H ctz 100-25 Mg Tab) 1 Each Tablet, 1 Tab Oral 2016-04-11 00:00:00 No 1 Daily [facility] Mvi , 1 Tab Oral Mvi , 1 Tab Oral 2016-04-11 00:00:00 No 1 Daily [facility] Diphenhydramine Hcl (Benadryl Allergy) 25 Mg Tablet, 1 Tab Oral Diphenhydramine Hcl (Benadryl Allergy) 25 Mg Tablet, 1 Tab Oral 2015-04-19 00:00:00 No 1 As Needed [facility] Aspirin 81 Mg Tab.chew, 81 Mg Oral Aspirin 81 Mg Tab.chew, 81 Mg Oral 2014-08-19 00:00:00 No 81 Daily [facility] Insulin Glargine,Hum.rec.anlog (Lantus) 100 Unit/1 Ml Cartridge, 60 Unit Sub-Q Insulin Glargine,Hum.rec.anlog (Lantus) 100 Unit/1 Ml Cartridge, 60 Unit Sub-Q 2014-08-19 00:00:00 No 60 Daily [facility] Isosorbide Mononitrate (Isosorbide Mononitrate Er) 30 Mg Tab.er.24h, 30 Mg Oral Isosorbide Mononitrate (Isosorbide Mononitrate Er) 30 Mg Tab.er.24h, 30 Mg Oral 2014-08-19 00:00:00 No 30 Daily [facility] Losartan/Hydrochlorothiazide (Losartan-H ctz 50-12.5 Mg Tab) 1 Each Tablet, 50 Mg Oral Losartan/Hydrochlorothiazide (Losartan-H ctz 50-12.5 Mg Tab) 1 Each Tablet, 50 Mg Oral 2014-08-19 00:00:00 No 50 Daily [facility] Megared , 1 Cap Oral Megared , 1 Cap Oral 2014-08-19 00:00:00 No 1 Daily [facility] Nitroglycerin (Nitrostat) 0.4 Mg Tab.subl, 0.4 Mg Subl ingual Nitroglycerin (Nitrostat) 0.4 Mg Tab.subl, 0.4 Mg Sublingual 2014-08-19 00:00:00 No .4 as needed [facility] Prasugrel Hcl (Effient) 10 Mg Tablet, 10 Mg Oral Prasu grel Hcl (Effient) 10 Mg Tablet, 10 Mg Oral 2014-08-19 00:00:00 No 10 Every Morning [facility] Furosemide (Lasix) 40 Mg Tablet, 40 Mg Oral Furosemide (Lasix) 40 Mg Tablet, 40 Mg Oral 2013-09-29 00:00:00 No 40 Daily [facility] Potassium Chloride 10 Meq Tab.er.prt, 10 Mg Oral Potas sium Chloride 10 Meq Tab.er.prt, 10 Mg Oral 2013-09-29 00:00:00 No 10 D aily [facility] Calcium Carbonate (Tums) 200 Mg Tab.chew, 2 Tab.chew O ral Calcium Carbonate (Tums) 200 Mg Tab.chew, 2 Tab.chew Oral 2013-04-02 00:00:00 No 2 as needed [facility] Glipizide 5 Mg Tablet, 5 Mg Oral Glipizide 5 Mg Tablet, 5 Mg Ora l 2013-04-02 00:00:00 No 5 Daily [facility] Insulin Glargine,Hum.rec.anlog (Lantus) 100 Unit/1 Ml Cartridge, 40 Units Insulin Glargine,Hum.rec.anlog (Lantus) 100 Unit/1 Ml Cartridge, 40 Units 2013-04-02 00:00:00 No 40 Before Breakfast [facility] Diclofenac Sodium 50 Mg Tablet., 50 Mg Oral Diclofen ac Sodium 50 Mg Tablet., 50 Mg Oral 2012-11-16 00:00:00 No 50 Twice Daily B efore Meals [facility] Insulin Glargine,Hum.rec.anlog (Lantus) 100 Unit/1 Ml Cartridge, Sub-Q Insulin Glargine,Hum.rec.anlog (Lantus) 100 Unit/1 Ml Cartridge, Sub-Q 2012-11-11 00:00:00 No Twice A Day [facility] Lisinopril (Prinavil / Zestril) 20 Mg Tablet, 20 Mg Or al Lisinopril (Prinavil / Zestril) 20 Mg Tablet, 20 Mg Oral 2012-11-11 00:00:00 No 20 Daily [facility] Montelukast Sodium (Singulair) 10 Mg Tablet, 10 Mg Ora l Montelukast Sodium (Singulair) 10 Mg Tablet, 10 Mg Oral 2012-11-11 00:00:00 No 10 As Needed [facility] Olmesartan Medoxomil (Benicar) 5 Mg Tablet, 2.5 Mg Ora l Olmesartan Medoxomil (Benicar) 5 Mg Tablet, 2.5 Mg Oral 2012-11-11 00:00:00 No 2 .5 Daily [facility] Pregabalin (Lyrica) 50 Mg Cap, 50 Mg Oral Pregabalin ( Lyrica) 50 Mg Cap, 50 Mg Oral 2012-11-11 00:00:00 No 50 Qhs [facility] Procedures Procedure Date / Time Performed Performing Clinician [facility] e EGD with biopsy 2018-11-17 00:00:00 IVETH ARAUJO [facility] CT of abdomen and pelvis without contrast 2018-11-16 00:00:0 0 LUCY REVELES [facility] Encounters Start Date/Time End Date/Time [facility] ID Source 2018-11-17 00:15:00 2018-11-20 18:20:00 Discharged Inpatient 1 [facility]UC[facility] REVELES [facility] [id number] [facility] 2018-11-04 08:02:00 2018-11-06 13:00:00 Discharged Inpatient 1 FRANKLIN CEVALLOS [facility] [id number] [facility] Results Test Description Test Time Test Comments Results Result Comments Source CHEST SINGLE (PORTABLE) 2019-12-22 13:45:00 [facility] [place] [address] Patient Name: GAURAV ESCOBEDO MR #: [id number] : 1940 Age/Sex: 79/F Req #: [id number] [facility] Physician: Ordered by: Judson Saleh MD Report #: [id number] Location: ER Room/Bed: Procedure: [id number] DX/CHEST SINGLE (PORTABLE) Exam Date: 12/22/19 Exam Time: 1320 REPORT STATUS: Signed TECHNIQUE: Frontal view of the chest. INDICATION: Y CP [id number] 1320 COMPARISON: 12/30/2018 DISCUSSION: Limited evaluation due [...] 202 MG/DL 70-110 H Performed by certified pig furnace operator at [facility] - CT HEAD/BRAIN W/O [id number] 14:20:00 Name: GAURAV ESCOBEDO [facility] : 1940 Age/S: 78 / F [address] [place] [address] Unit #: [id number] Loc: [place] [address] Phys: George Felder DO Acct: [id number] Dis Date: Status: ADM IN PHONE #: [phone] Exam Date: 02/11/2019 1334 FAX #: [phone] Reason: dizziness EXAMS: CPT CODE: [id number] CT HEAD/BRAIN W/O CONT 19696 CT head without contrast 02/11/2019 HISTORY: Dizziness. [...] and mild chronic microvascular ischemic changes. [id number] at 1420 Reported and signed by: Alex Jain M.D. CC: Mani lopez MD; George Felder DO; Guerita Altamirano MD Technologist:Husam Gan, RT(R) CTDI: DLP: Trnscb Date/Time: 02/11/2019 (1420) [email or web address] Orig Print D/T: S: 02/11/2019 (9341) PAGE 1 Signed Report [id number] 08:09:00* Test Item Value Reference Range Interpretation Comments GLUBED (test code = GLUBED) 191 MG/DL 70-110 H Performed by certified pig furnace operator at [facility] [id number] 20:09:00* Test Item Value Reference Range Interpretation Comments GLUBED (test code = GLUBED) 217 MG/DL 70-110 H Performed by certified pig furnace operator at [facility] [id number] 16:51:00* Test Item Value Reference Range Interpretation Comments GLUBED (test code = GLUBED) 263 MG/DL 70-110 H Performed by certified pig furnace operator at [facility] [id number] 13:44:00* Test Item Value Reference Range Interpretation Comments GLUBED (test code = GLUBED) 282 MG/DL 70-110 H Performed by certified pig furnace operator at [facility] [id number] 12:04:00* Test Item Value Reference Range Interpretation Comments GLUBED (test code = GLUBED) 256 MG/DL 70-110 H Performed by certified pig furnace operator at [facility] BASIC METABOLIC [id number] 07:32:00* Test Item Value Reference Range Interpretation [...] CA) 7.9 mg/dL 8.0-10.5 L CBC W/AUTO [id number] 07:01:00* Test Item Value Reference Range Interpretation [...] DIFF REQUIRED (test code = MDIFF) NO [id number] 06:18:00* Test Item Value Reference Range Interpretation Comments GLUBED (test code = GLUBED) 217 MG/DL 70-110 H Performed by certified pig furnace operator at [facility] [id number] 17:27:00* Test Item Value Reference Range Interpretation Comments GLUBED (test code = GLUBED) 235 MG/DL 70-110 H Performed by certified pig furnace operator at [facility] [id number] 12:34:00* Test Item Value Reference Range Interpretation Comments GLUBED (test code = GLUBED) 328 MG/DL 70-110 H Performed by certified pig furnace operator at [facility] - XR CHEST 2 [id number] 09:10:00 FAX: Mani Nicole [phone] [place]: St: ADM FAX: Jabier Chavarria MD [phone] Name: GAURAV ESCOBEDO [facility] : 1940 Age/S: 78/F [address] [place] [address] Unit #: [id number] Loc: [address] [place] [address] Phys: Mani Pineda MD Acct: [id number] Dis Date: Status: ADM IN PHONE #: [phone] Exam Date: 02/09/2019 0829 FAX #: [phone] Reason: pulmonary edema EXAMS: CPT CODE: [id number] XR CHEST 2 V 11176 CHEST 1 VIEW: 02/09/2019 COMPARISON: February 04, [...] By: [email or web address] Orig Print D/T: S: 02/09/2019 (0994) PAGE 1 Signed R eport CBC W/AUTO [id number] 08:03:00* Test Item Value Reference Range Interpretation [...] reported result: 118 x10\S\3/uLEdited by: ANAHI on 02/09/19:[id number]/11/18 0800: PLT previously reported as: 118 L [...] REQUIRED (test code = MDIFF) NO PLT [id number] 08:03:00* Test Item Value Reference Range Interpretation Comments PLATELET ESTIMATE (test code = PLTEST) 152-190 THOUSAND ADEQUATE PLATELET MORPHOLOGY (test code = PLTMORPH) LARGE PLATELETS LARGE PLTS SEEN CBC W/AUTO [id number] 08:00:00* Test Item Value Reference Range Interpretation [...] reported result: 118 x10\S\3/uLEdited by: ANAHI on 02/09/19:036131 0800: PLT previously reported as: 118 L [...] REQUIRED (test code = MDIFF) NO PLT [id number] 08:00:00* Test Item Value Reference Range Interpretation Comments PLATELET ESTIMATE (test code = PLTEST) THOUSAND ADEQUATE CBC W/AUTO [id number] 08:00:00* Test Item Value Reference Range Interpretation [...] reported result: 118 x10\S\3/uLEdited by: ANAHI on 02/09/19:[id number] 0800: PLT previously reported as: 118 L [...] REQUIRED (test code = MDIFF) NO PLT [id number] 08:00:00* Test Item Value Reference Range Interpretation Comments PLATELET ESTIMATE (test code = PLTEST) THOUSAND ADEQUATE [id number] 07:56:00* Test Item Value Reference Range Interpretation Comments GLUBED (test code = GLUBED) 322 MG/DL 70-110 H Performed by certified pig furnace operator at [facility] FXKMHK8104-45-57 06:50:00* Test Item Value Reference Range Interpretation Comments GLUBED (test code = GLUBED) 289 MG/DL 70-110 H Performed by certified pig furnace operator at [facility] CBC W/AUTO BXPW8124-90-41 06:20:00* Test Item Value Reference Range Interpretation [...] (test code = MDIFF) NO BASIC METABOLIC KSNLS2992-77-70 06:13:00* Test Item Value Reference Range Interpretation [...] = CA) 8.2 mg/dL 8.0-10.5 N HGB [id number] 20:02:00* Test Item Value Reference Range Interpretation Comments HEMOGLOBIN (test code = HGB) 10.9 g/dL 11.0-15.0 L HEMATOCRIT (test code = HCT) 35.4 % 33.0-45.0 N [id number] 19:36:00* Test Item Value Reference Range Interpretation Comments GLUBED (test code = GLUBED) 328 MG/DL 70-110 H Performed by certified pig furnace operator at [facility] GZEOQO5247-18-03 17:13:00* Test Item Value Reference Range Interpretation Comments GLUBED (test code = GLUBED) 330 MG/DL 70-110 H Performed by certified pig furnace operator at [facility] HGB [id number] 15:28:00* Test Item Value Reference Range Interpretation Comments HEMOGLOBIN (test code = HGB) 12.3 g/dL 11.0-15.0 N HEMATOCRIT (test code = HCT) 38.8 % 33.0-45.0 N [id number] 14:26:00* Test Item Value Reference Range Interpretation Comments GLUBED (test code = GLUBED) 318 MG/DL 70-110 H Performed by certified pig furnace operator at [facility] AUH-PUDQN0888-49-25 13:15:00* Test Item Value Reference Range Interpretation Comments ACT-ISTAT (test code = ACTI) 186 SEC 74-137 H Performed by certified pig furnace operator at [facility] CEX-[id number] 12:13:00* Test Item Value Reference Range Interpretation Comments ACT-ISTAT (test code = ACTI) 219 SEC 74-137 H Performed by certified pig furnace operator at [facility] RJBKIM3299-13-93 10:42:00* Test Item Value Reference Range Interpretation Comments GLUBED (test code = GLUBED) 108 MG/DL 70-110 N Performed by certified pig furnace operator at [facility] DQG-DZPCU0767-97-25 09:59:00* Test Item Value Reference Range Interpretation Comments ACT-ISTAT (test code = ACTI) 312 SEC 74-137 H [facility] certified pig furnace [facility] 09:34:00* Test Item Value Reference Range Interpretation Comments ACT-ISTAT (test code = ACTI) 345 SEC 74-137 H Per[facility] by certified pig furnace operator [facility] CenterMHGLU2683-46-68 09:34:00* Test Item Value Reference Range Interpretation Comments ACT-ISTAT (test code = ACTI) 307 SEC 74-137 H Performed by certified pig furnace operator at [facility] WGANFM7104-49-93 07:05:00* Test Item Value Reference Range Interpretation Comments GLUBED (test code = GLUBED) 109 MG/DL 70-110 N Performed by certified pig furnace operator at [facility] BASIC METABOLIC [id number] 15:34:00* Test Item Value Reference Range Interpretation [...] code = CA) 9.6 mg/dL 8.0-10.5 N ESCISPUESH9622-33-37 15:34:00* Test Item Value Reference Range Interpretation Comments PREALBUMIN (test code = PREALB) 24.0 mg/dL 16.0-40.0 N BASIC METABOLIC IMCVG1888-12-26 15:26:00* Test Item Value Reference Range Interpretation [...] code = CA) 9.6 mg/dL 8.0-10.5 N [id number] 15:26:00* Test Item Value Reference Range Interpretation Comments PREALBUMIN (test code = PREALB) mg/dL 16.0-40.0 PROTHROMBIN [id number] 15:22:00* Test Item Value Reference Range Interpretation [...] Infarction (to prevent recurrent infarct). CBC W/AUTO [id number] 15:13:00* Test Item Value Reference Range Interpretation [...] = MDIFF) NO - XR CHEST 2 [id number] 13:42:00 FAX: Mani Nicole [phone] [place]: St: PRE FAX: Jabier Chavarria MD [phone] Name: GAURAV ESCOBEDO [facility] : 1940 Age/S: 78/F [address] [place] [address] Unit #: [id number] Loc: [address] [address] Phys: Mani Pineda MD Acct: [id number] Dis Date: Status: PRE IN PHONE #: [phone] Exam Date: 02/04/2019 1339 FAX #: [phone] Reason: PREOP WATCHMAN EXAMS: CPT CODE: [id number] XR CHEST 2 V 64156 EXAM: PA and lateral chest. EXAM DATE: [...] Emy Cast, RT(R)(M) Trnscrd Date/[place] e/By: 02/04/2019 (3122) : By: RadhaCER Orig Print D/T: S: 02/04/2019 (1343) PAGE 1 Signed Report CHEST SINGLE (PORTABLE)2018-12-30 21:27:00 [place] [address] Patient Name: GAURAV ESCOBEDO MR #: [id number] : 1940 Age/Sex: 78/F Req #: [id number] Adm Physician: ARIAS KNOTT MD Ordered by: BRIELLE ANTONIO DO Report #: [id number] Location: [facility] Room/Bed: [place] [address] Procedure: [id number] DX /CHEST SINGLE (PORTABLE) Exam Date: 12/30/18 [...] on 12/30/182132 COPY TO: BRIELLE ANTONIO DO Zxrkgxrtjf5199-30-91 12:57:00* Test Item Value Reference Range Interpretation Comments Hemoglobin (test code = 42938-0) 8.9 12.0-16.0 L [facility]anoHematocrit2019-09-06 12:57:00* Test Item Value Reference Range Interpretation Comments Hematocrit (test code = 4544-3) 27.0 34.2-44.1 L [facility] PlanoPlatelet Szxwipqq1881-45-43 10:38:00* Test Item Value Reference Range Interpretation Comments Platelet Estimate (test code = 32028-3) SLIGHTLY DECREASED [facility] PlanoPlatelet Morphology Pyorskg7361-14-47 10:38:00* Test Item Value Reference Range Interpretation Comments Platelet Morphology Comment (test code = 04173-0) NORMAL [facility] PlanoRed Cell Morphology Sqbiimc3688-55-28 10:38:00* Test Item Value Reference Range Interpretation Comments Red Cell Morphology Comment (test code = 6742-1) ABNORMAL [facility] PlanoWhite Blood Fphkb0164-42-90 05:26:00* Test Item Value Reference Range Interpretation Comments White Blood Count (test code = 6690-2) 11.62 4.8-10.8 H [facility] PlanoRed Blood Pvewb5368-08-21 05:26:00* Test Item Value Reference Range Interpretation Comments Red Blood Count (test code = 789-8) 2.71 3.6-5.1 L [facility] PlanoMean Corpuscular Cwnblx2336-87-73 05:26:00* Test Item Value Reference Range Interpretation Comments Mean Corpuscular Volume (test code = 787-2) 91.1 81-99 [facility] PlanoMean Corpuscular Wkfboeruyb9366-48-58 05:26:00* Test Item Value Reference Range Interpretation Comments Mean Corpuscular Hemoglobin (test code = 785-6) 29.5 28-32 [facility] PlanoMean Corpuscular Hemoglobin Concent 2018-11-20 05:26:00* Test Item Value Reference Range Interpretation Comments Mean Corpuscular Hemoglobin Concent (test code = 786-4) 32.4 31-35 [facility] PlanoRed Cell Distribution Fmzqb8780-29-98 05:26:00* Test Item Value Reference Range Interpretation Comments Red Cell Distribution Width (test code = 36881-7) 17.9 11.7 -14.4 H [facility] PlanoPlatelet Sutkl6628-93-79 05:26:00* Test Item Value Reference Range Interpretation Comments Platelet Count (test code = 777-3) 132 140-360 L [facility] PlanoNeutrophils (%) (Auto)2018-11-20 05:26:00 * Test Item Value Reference Range Interpretation Comments Neutrophils (%) (Auto) (test code = 15831-4) 73.7 38.7-80.0 [facility] PlanoLymphocytes (%) (Auto)2018-11-20 05:26:00 * Test Item Value Reference Range Interpretation Comments Lymphocytes (%) (Auto) (test code = 736-9) 15.3 18.0-39.1 L [facility] PlanoMonocytes (%) (Auto)2018-11-20 05:26:00* Test Item Value Reference Range Interpretation Comments Monocytes (%) (Auto) (test code = 5905-5) 5.6 4.4-11.3 [facility]anoEosinophils (%) (Auto)2018-11-20 05:26:00 * Test Item Value Reference Range Interpretation Comments Eosinophils (%) (Auto) (test code = 713-8) 4.6 0.0-6.0 [facility] PlanoBasophils (%) (Auto)2018-11-20 05:26:00* Test Item Value Reference Range Interpretation Comments Basophils (%) (Auto) (test code = 706-2) 0.2 0.0-1.0 [facility] PlanoIM GRANULOCYTES %2018-11-20 05:26:00* Test Item Value Reference Range Interpretation Comments IM GRANULOCYTES % (test code = IM GRANULOCYTES %) 0.6 0.0- 1.0 [facility] PlanoNeutrophils # (Auto)2018-11-20 05:26:00* Test Item Value Reference Range Interpretation Comments Neutrophils # (Auto) (test code = 751-8) 8.6 2.1-6.9 H [facility] PlanoLymphocytes # (Auto)2018-11-20 05:26:00* Test Item Value Reference Range Interpretation Comments Lymphocytes # (Auto) (test code = 78324-7) 1.8 1.0-3.2 [facility] PlanoMonocytes # (Auto)2018-11-20 05:26:00* Test Item Value Reference Range Interpretation Comments Monocytes # (Auto) (test code = 742-7) 0.7 0.2-0.8 [facility]anoEosinophils # (Auto)2018-11-20 05:26:00* Test Item Value Reference Range Interpretation Comments Eosinophils # (Auto) (test code = 711-2) 0.5 0.0-0.4 H [facility] PlanoBasophils # (Auto)2018-11-20 05:26:00* Test Item Value Reference Range Interpretation Comments Basophils # (Auto) (test code = 704-7) 0.0 0.0-0.1 [facility] PlanoAbsolute Immature Granulocyte (auto 2018-11-20 05:26:00* Test Item Value Reference Range Interpretation Comments Absolute Immature Granulocyte (auto (dominique t code = Absolute Immature Granulocyte (auto) 0.07 0-0.1 [facility] PlanoBedside Oixmqou3076-88-98 00:44:00* Test Item Value Reference Range Interpretation Comments Bedside Glucose (test code = 99417-6) 164 70-120 H Meter ID: [id number] Scott & [facility] – PlanoBlood Culture 2018-11-19 22:32:00* Test Item Value Reference Range Interpretation Comments Blood Culture (test code = 80403025) NO GROWTH AFTER 72 HOURS [facility] PlanoVitamin B12 Ykaqi7845-76-62 07:15:00* Test Item Value Reference Range Interpretation Comments Vitamin B12 Level (test code = 27247-6) 537 213-816 [facility] PlanoFolate2019-09-05 07:15:00* Test Item Value Reference Range Interpretation Comments Folate (test code = 2284-8) 16.9 7.0-15.4 H [facility] PlanoFerritin2019-09-05 07:14:00* Test Item Value Reference Range Interpretation Comments Ferritin (test code = 2276-4) 110.34 4.63-204.00 [facility] Brenhamodium Oqupl9311-25-49 06:42:00* Test Item Value Reference Range Interpretation Comments Sodium Level (test code = 2951-2) 138 136-145 [facility] PlanoPotassium Xrxgb6179-02-57 06:42:00* Test Item Value Reference Range Interpretation Comments Potassium Level (test code = 2823-3) 3.7 3.5-5.1 [facility] PlanoChloride Nbjxt7596-32-62 06:42:00* Test Item Value Reference Range Interpretation Comments Chloride Level (test code = 2075-0) 105 98-107 [facility] PlanoCarbon Dioxide Gcyjx7067-09-42 06:42:00* Test Item Value Reference Range Interpretation Comments Carbon Dioxide Level (test code = 2028-9) 27 22-29 [facility] PlanoAnion Vee1189-07-81 06:42:00* Test Item Value Reference Range Interpretation Comments Anion Gap (test code = 34564-0) 9.7 8-16 [facility] PlanoBlood Urea Sxbvyuxh2047-67-67 06:42:00* Test Item Value Reference Range Interpretation Comments Blood Urea Nitrogen (test code = 3094-0) 15 7-26 [facility] PlanoCreatinine2019-09-05 06:42:00* Test Item Value Reference Range Interpretation Comments Creatinine (test code = 2160-0) 0.71 0.57-1.11 [facility] PlanoBUN/Creatinine Kkate0964-67-36 06:42:00* Test Item Value Reference Range Interpretation Comments BUN/Creatinine Ratio (test code = 3097-3) 21 6-25 [facility] PlanoEstimat Glomerular Filtration Rate 2018-11-19 06:42:00* Test Item Value Reference Range Interpretation Comments Estimat Glomerular Filtration Rate (test code = 150394937) > 60 >60 Ranges were taken from the National Kidney Disease Education Program and the [facility] Foundation literature.Reference ranges:60 or greater: Wgcwqa79-85 ( for 3 consecutive months): Chronic kidney disease 15 or less: Kidney failureBaylor Scott & White Medical Center – PlanoGlucose Omxkl1914-72-46 06:42:00* Test Item Value Reference Range Interpretation Comments Glucose Level (test code = WCT0074) 103 74-118 [facility] PlanoCalcium Edyzd0339-17-34 06:42:00* Test Item Value Reference Range Interpretation Comments Calcium Level (test code = 38320-6) 8.2 8.4-10.2 L [facility] PlanoTosanpet[facility] hospital Yctijyxjy8116-51-52 06:42:00* Test Item Value Reference Range Interpretation Comments Total Bilirubin (test code = 1975-2) 0.6 0.2-1.2 [facility] PlanoAspartate Amino Transf (AST/SGOT) 2018-11-19 06:42:00* Test Item Value Reference Range Interpretation Comments Aspartate Amino Transf (AST/SGOT) (test code = Aspartate Amino Transf (AST/SGOT)) 36 5-34 H [facility] PlanoAlanine Aminotransferase (ALT/SGPT) 2018-11-19 06:42:00* Test Item Value Reference Range Interpretation Comments Alanine Aminotransferase (ALT/SGPT) (test code = 1742-6) 38 0-55 [facility] PlanoTotal Mvwmopk1409-50-67 06:42:00* Test Item Value Reference Range Interpretation Comments Total Protein (test code = 2885-2) 4.5 6.5-8.1 L [facility] PlanoAlbumin2019-09-05 06:42:00* Test Item Value Reference Range Interpretation Comments Albumin (test code = 1751-7) 2.5 3.5-5.0 L [facility] PlanoGlobulin2019-09-05 06:42:00* Test Item Value Reference Range Interpretation Comments Globulin (test code = 60337-5) 2.0 2.3-3.5 L [facility] PlanoAlbumin/Globulin Rczws8291-96-04 06:42:00 * Test Item Value Reference Range Interpretation Comments Albumin/Globulin Ratio (test code = 1759-0) 1.3 0.8-2.0 [facility] PlanoAlkaline Efbhyhaxoeu5563-63-73 06:42:00* Test Item Value Reference Range Interpretation Comments Alkaline Phosphatase (test code = 6768-6) 39 40-150 L [facility] PlanoIron Boctr6850-87-24 06:37:00* Test Item Value Reference Range Interpretation Comments Iron Level (test code = 2498-4) 25 50-170 L [facility] PlanoTotal Iron Binding Quwzcejz5133-59-52 06:37:00* Test Item Value Reference Range Interpretation Comments Total Iron Binding Capacity (test code = 2500-7) 230 261-4 78 L [facility] PlanoPercent Iron Vhjkdpfbup1246-20-39 06:37:00* Test Item Value Reference Range Interpretation Comments Percent Iron Saturation (test code = 2502-3) 11 15-50 L [facility] PlanoTransferrin2019-09-05 06:37:00* Test Item Value Reference Range Interpretation Comments Transferrin (test code = 3034-6) 164 180-382 L [facility] PlanoPercent Reticulocyte Ldzew9288-77-50 06:22:00* Test Item Value Reference Range Interpretation Comments Percent Reticulocyte Count (test code = 63595-8) 5.6 0.8-2 .2 H [facility] PlanoTriglycerides Aeapa9546-32-03 12:32:00* Test Item Value Reference Range Interpretation Comments Triglycerides Level (test code = 2571-8) 140 0-149 [facility] PlanoCholesterol Msnlq3046-87-40 12:32:00* Test Item Value Reference Range Interpretation Comments Cholesterol Level (test code = 2093-3) 112 0-199 Less than 200 mg/dL Low Urbg214 - 239 mg/dL Borderline Zroh570 m g/dl and greater High Risk [facility] – PlanoLDL Baqecpevcoy8916-91-24 12:32:00* Test Item Value Reference Range Interpretation Comments LDL Cholesterol (test code = 2089-1) 60 60-130 [facility] PlanoHDL Dvjhpnxolvv8453-29-79 12:32:00* Test Item Value Reference Range Interpretation Comments HDL Cholesterol (test code = 2085-9) 24 40-60 L [facility] PlanoCholesterol/HDL Ioyxh1543-22-30 12:32:00 * Test Item Value Reference Range Interpretation Comments Cholesterol/HDL Ratio (test code = 9830-1) 4.7 3.0-3.6 H [facility] PlanoHemoglobin A1c Flqdbee8630-41-71 12:31:00 * Test Item Value Reference Range Interpretation Comments Hemoglobin A1c Percent (test code = Hemoglobin A1c Percent) 6.3 4.0-7.0 [facility] PlanoCT ABDOMEN/PELVIS YC3700-28-59 23:26:00 [place] [address] Patient Name: GAURAV ESCOBEDO MR #: [id number] : 1940 Age/Sex: 78/F Req #: [id number] Adm Physician: Ordered by: LUCY REVELES MD Report #: [id number] Location: ER Room/Bed: Procedure: 0902- 0025 CT/CT [...] is below the limits set by the [facility] Protocol Committee (RPC). COMPARISON: None. ABDOMEN FINDING S: Lung Bases: The heart is enlarged with calcifications of the coronary ar teries and aortic valve. Noncalcified nodule in the right middle lobe measures 3 mm. There is bibasilar atelectasis. The descending thoracic aorta is tortuo us with mural calcifications throughout. The chowdhury of the heart are visible mroe ggestive of anemia. Liver: Normal in attenuation [...] 11/16/182330 COPY TO: LUCY REVELES MD Prothrombin Rswy3633-13-01 23:20:00* Test Item Value Reference Range Interpretation Comments Prothrombin Time (test code = 5902-2) 18.6 11.9-14.5 H [facility] PlanoProthromb Time International Ratio 2018-11-16 23:20:00* Test Item Value Reference Range Interpretation Comments Prothromb Time International Ratio (test code = 6301-6) 1.49 Oral Anticoagulant Therapy INR Values:1. Low Intensity Therapy 1.5 - 2.02 . Moderate Intensity Therapy 2.0 - 3.03. High Intensity Therapy(1) 2.5 - 3. 54. High Intensity Therapy(2) 3.0 - 4.05. Panic Value INR > 5.0 [facility] PlanoActivated Partial Thromboplast Time 2018-11-16 23:20:00* Test Item Value Reference Range Interpretation Comments Activated Partial Thromboplast Time (test code = 54836-3) 28.0 23.8-35.5 [facility] PlanoCHEST XRAY LINE QTXYZQULS8510-77-73 22:32:00 [facility] [address] [place] [address] Patient Name: GAURAV ESCOBEDO MR #: [id number] : 1940 Age/Sex: 78/F Req #: [id number] Adm Physician: Ordered by: LUCY REVELES MD Report #: [id number] Location: ER Room/Bed: Procedure: 0902- 0030 DX/CHEST [...] WBC (test code = 5821-4) NONE 0-5 [facility] PlanoUrine SYX1936-51-16 21:34:00* Test Item Value Reference Range Interpretation Comments Urine RBC (test code = 95061-2) NONE 0-5 [facility] PlanoUrine Kcqpoqrf2112-79-63 21:34:00* Test Item Value Reference Range Interpretation Comments Urine Bacteria (test code = 45613-1) FEW NONE [facility] PlanoUrine Epithelial Dgaso2007-63-56 21:34:00 * Test Item Value Reference Range Interpretation Comments Urine Epithelial Cells (test code = 70646-2) NONE NONE [facility] PlanoUrine Amorphous Efpejeev3673-31-03 21:34:00* Test Item Value Reference Range Interpretation Comments Urine Amorphous Sediment (test code = 8246-1) MODERATE FEW H [facility] PlanoDifferential Total Cells Counted 2018-11-16 21:31:00* Test Item Value Reference Range Interpretation Comments Differential Total Cells Counted (test code = Differen tial Total Cells Counted) 100 [facility] PlanoNeutrophils % (Manual)2018-11-16 21:31:00 * Test Item Value Reference Range Interpretation Comments Neutrophils % (Manual) (test code = 43910-4) 91 40-74 H [facility] PlanoLymphocytes % (Manual)2018-11-16 21:31:00 * Test Item Value Reference Range Interpretation Comments Lymphocytes % (Manual) (test code = 737-7) 7 19-48 L [facility] PlanoMonocytes % (Manual)2018-11-16 21:31:00* Test Item Value Reference Range Interpretation Comments Monocytes % (Manual) (test code = 744-3) 1 3.4-9.0 L [facility] PlanoMetamyelocytes %2018-11-16 21:31:00* Test Item Value Reference Range Interpretation Comments Metamyelocytes % (test code = 740-1) 1 0-0 H [facility] PlanoHypochromasia2019-09-02 21:31:00* Test Item Value Reference Range Interpretation Comments Hypochromasia (test code = 728-6) SLIGHT [facility] PlanoMacrocytosis2019-09-02 21:31:00* Test Item Value Reference Range Interpretation Comments Macrocytosis (test code = 738-5) SLIGHT [facility] PlanoUrine Djxwe4514-49-69 21:26:00* Test Item Value Reference Range Interpretation Comments Urine Color (test code = 5778-6) YELLOW YELLOW [facility] PlanoUrine Xtgiepv8696-26-18 21:26:00* Test Item Value Reference Range Interpretation Comments Urine Clarity (test code = 34403-3) SL CLOUDY CLEAR [facility] PlanoUrine Specific Dwotjkq8569-02-94 21:26:00 * Test Item Value Reference Range Interpretation Comments Urine Specific [place] (test code = 5811-5) 1.020 1.010-1.02 5 [facility] PlanoUrine uO0720-69-99 21:26:00* Test Item Value Reference Range Interpretation Comments Urine pH (test code = 44732-8) 5.5 5-7 [facility] PlanoUrine Leukocyte Aroqdrdt7612-17-60 21:26:00* Test Item Value Reference Range Interpretation Comments Urine Leukocyte Esterase (test code = 27217-0) NEGATIVE NEGATIV E [facility] PlanoUrine Susjooq3349-23-56 21:26:00* Test Item Value Reference Range Interpretation Comments Urine Nitrite (test code = 11382-1) NEGATIVE NEGATIVE [facility] PlanoUrine Cdevkba4282-45-13 21:26:00* Test Item Value Reference Range Interpretation Comments Urine Protein (test code = 32601-9) NEGATIVE NEGATIVE [facility] PlanoUrine Glucose (UA)2018-11-16 21:26:00* Test Item Value Reference Range Interpretation Comments Urine Glucose (UA) (test code = 88829-8) NEGATIVE NEGATIVE [facility] PlanoUrine Moggbwd8465-36-37 21:26:00* Test Item Value Reference Range Interpretation Comments Urine Ketones (test code = 04918-4) TRACE NEGATIVE H [facility] PlanoUrine Djdszfwxjein9707-69-05 21:26:00* Test Item Value Reference Range Interpretation Comments Urine Urobilinogen (test code = 74432-1) 0.2 0.2-1 [facility] PlanoUrine Ekpfqpwqi2804-53-48 21:26:00* Test Item Value Reference Range Interpretation Comments Urine Bilirubin (test code = 1977-8) NEGATIVE NEGATIVE [facility] PlanoUrine Pjert1633-22-98 21:26:00* Test Item Value Reference Range Interpretation Comments Urine Blood (test code = 62116-0) NEGATIVE NEGATIVE [facility] PlanoCHEST SINGLE (PORTABLE)2018-11-16 21:17:00 [place] [address] Patient Name: GAURAV ESCOBEDO MR #: [id number] : 1940 Age/Sex: 78/F Req #: [id number] Adm Physician: Ordered by: LUCY REVELES MD Report #: [id number] Location: ER Room/Bed: Procedure: 0902- 0027 DX/CHEST [...] MD 2 119 Transcribed By: HA on 11/16/181 COPY TO: JAY JAY REVELES MD B-Type Natriuretic Kzdyhcn9954-84-53 21:13:00* Test Item Value Reference Range Interpretation Comments B-Type Natriuretic Peptide (test code = 68254-4) 151.2 0-100 H [facility] PlanoCreatine Kinase XA0546-13-27 21:13:00* Test Item Value Reference Range Interpretation Comments Creatine Kinase MB (test code = 89328-2) 1.10 0-5.0 [facility]anoTroponin [id number] 21:13:00* Test Item Value Reference Range Interpretation Comments Troponin I (test code = UQS5621) 0.027 0-0.300 [facility]hamtool Occult Bectv0597-68-47 21:12:00* Test Item Value Reference Range Interpretation Comments Stool Occult Blood (test code = 2335-8) POSITIVE NEGATIVE H [facility] PlanoCreatine Exisfb1609-55-12 21:01:00* Test Item Value Reference Range Interpretation Comments Creatine Kinase (test code = 2157-6) 16 29-168 L [facility] PlanoBedside Ptscpty5579-27-93 11:24:00* Test Item Value Reference Range Interpretation Comments Bedside Glucose (test code = 87966-9) 225 70-120 H Meter ID: [id number] E. DeBakey [facility] Medical CenterWhite Blood Count 2018-11-06 08:13:00* Test Item Value Reference Range Interpretation Comments White Blood Count (test code = 6690-2) 10.02 4.8-10.8 [facility] PlanoRed Blood Ryahm0749-56-80 08:13:00* Test Item Value Reference Range Interpretation Comments Red Blood Count (test code = 789-8) 4.10 3.6-5.1 [facility]anoHemoglobin2019-08-23 08:13:00* Test Item Value Reference Range Interpretation Comments Hemoglobin (test code = 42975-2) 12.3 12.0-16.0 [facility]anoHematocrit2019-08-23 08:13:00* Test Item Value Reference Range Interpretation Comments Hematocrit (test code = 4544-3) 37.3 34.2-44.1 [facility] PlanoMean Corpuscular Uuageh5894-79-60 08:13:00* Test Item Value Reference Range Interpretation Comments Mean Corpuscular Volume (test code = 787-2) 91.0 81-99 [facility]anoMean Corpuscular Aixogflqkb5677-75-42 08:13:00* Test Item Value Reference Range Interpretation Comments Mean Corpuscular Hemoglobin (test code = 785-6) 30.0 28-32 [facility] PlanoMean Corpuscular Hemoglobin Concent 2018-11-06 08:13:00* Test Item Value Reference Range Interpretation Comments Mean Corpuscular Hemoglobin Concent (test code = 786-4) 33.0 31-35 [facility] PlanoRed Cell Distribution Lmchm7327-09-35 08:13:00* Test Item Value Reference Range Interpretation Comments Red Cell Distribution Width (test code = 12957-6) 13.9 11.7 -14.4 [facility] PlanoPlatelet Ppikb8143-10-23 08:13:00* Test Item Value Reference Range Interpretation Comments Platelet Count (test code = 777-3) 182 140-360 [facility] PlanoNeutrophils (%) (Auto)2018-11-06 08:13:00 * Test Item Value Reference Range Interpretation Comments Neutrophils (%) (Auto) (test code = 09201-2) 62.1 38.7-80.0 [facility] PlanoLymphocytes (%) (Auto)2018-11-06 08:13:00 * Test Item Value Reference Range Interpretation Comments Lymphocytes (%) (Auto) (test code = 736-9) 24.2 18.0-39.1 [facility]anoMonocytes (%) (Auto)2018-11-06 08:13:00* Test Item Value Reference Range Interpretation Comments Monocytes (%) (Auto) (test code = 5905-5) 9.6 4.4-11.3 [facility]anoEosinophils (%) (Auto)2018-11-06 08:13:00 * Test Item Value Reference Range Interpretation Comments Eosinophils (%) (Auto) (test code = 713-8) 3.2 0.0-6.0 [facility]anoBasophils (%) (Auto)2018-11-06 08:13:00* Test Item Value Reference Range Interpretation Comments Basophils (%) (Auto) (test code = 706-2) 0.5 0.0-1.0 [facility] PlanoIM GRANULOCYTES %2018-11-06 08:13:00* Test Item Value Reference Range Interpretation Comments IM GRANULOCYTES % (test code = IM GRANULOCYTES %) 0.4 0.0- 1.0 [facility]anoNeutrophils # (Auto)2018-11-06 08:13:00* Test Item Value Reference Range Interpretation Comments Neutrophils # (Auto) (test code = 751-8) 6.2 2.1-6.9 [facility]anoLymphocytes # (Auto)2018-11-06 08:13:00* Test Item Value Reference Range Interpretation Comments Lymphocytes # (Auto) (test code = 64984-1) 2.4 1.0-3.2 [facility]anoMonocytes # (Auto)2018-11-06 08:13:00* Test Item Value Reference Range Interpretation Comments Monocytes # (Auto) (test code = 742-7) 1.0 0.2-0.8 H [facility]anoEosinophils # (Auto)2018-11-06 08:13:00* Test Item Value Reference Range Interpretation Comments Eosinophils # (Auto) (test code = 711-2) 0.3 0.0-0.4 [facility]anoBasophils # (Auto)2018-11-06 08:13:00* Test Item Value Reference Range Interpretation Comments Basophils # (Auto) (test code = 704-7) 0.1 0.0-0.1 [facility] PlanoAbsolute Immature Granulocyte (auto 2018-11-06 08:13:00* Test Item Value Reference Range Interpretation Comments Absolute Immature Granulocyte (auto (dominique t code = Absolute Immature Granulocyte (auto) 0.04 0-0.1 [facility] Brenhamodium Wewlo4395-25-73 08:11:00* Test Item Value Reference Range Interpretation Comments Sodium Level (test code = 2951-2) 139 136-145 [facility] PlanoPotassium Flpnq4651-57-92 08:11:00* Test Item Value Reference Range Interpretation Comments Potassium Level (test code = 2823-3) 4.5 3.5-5.1 [facility] PlanoChloride Tlece7545-74-96 08:11:00* Test Item Value Reference Range Interpretation Comments Chloride Level (test code = 2075-0) 104 98-107 [facility] PlanoCarbon Dioxide Lazqz3003-44-22 08:11:00* Test Item Value Reference Range Interpretation Comments Carbon Dioxide Level (test code = 2028-9) 28 22-29 [facility] PlanoAnion Jja5806-29-56 08:11:00* Test Item Value Reference Range Interpretation Comments Anion Gap (test code = 71690-0) 11.5 8-16 [facility] PlanoBlood Urea Aspriryl1505-97-83 08:11:00* Test Item Value Reference Range Interpretation Comments Blood Urea Nitrogen (test code = 3094-0) 23 7-26 [facility] PlanoCreatinine2019-08-23 08:11:00* Test Item Value Reference Range Interpretation Comments Creatinine (test code = 2160-0) 0.72 0.57-1.11 [facility] PlanoBUN/Creatinine Irymf2353-94-09 08:11:00* Test Item Value Reference Range Interpretation Comments BUN/Creatinine Ratio (test code = 3097-3) 32 6-25 H [facility] PlanoEstimat Glomerular Filtration Rate 2018-11-06 08:11:00* Test Item Value Reference Range Interpretation Comments Estimat Glomerular Filtration Rate (test code = 595507196) > 60 >60 Ranges were taken from the National Kidney Disease Education Program and the [facility] Foundation literature.Reference ranges:60 or greater: Hvhncs99-08 ( for 3 consecutive months): Chronic kidney disease 15 or less: Kidney failureBaylor Scott & White Medical Center – PlanoGlucose Nwcuw7968-75-09 08:11:00* Test Item Value Reference Range Interpretation Comments Glucose Level (test code = VPM4239) 113 74-118 [facility] PlanoCalcium Dzhjw0622-88-85 08:11:00* Test Item Value Reference Range Interpretation Comments Calcium Level (test code = 46119-5) 9.2 8.4-10.2 [facility] PlanoB-Type Natriuretic Gviibre0126-04-48 21:20:00* Test Item Value Reference Range Interpretation Comments B-Type Natriuretic Peptide (test code = 86534-8) 104.3 0-100 H [facility] PlanoCreatine Kinase RP7338-78-07 10:55:00* Test Item Value Reference Range Interpretation Comments Creatine Kinase MB (test code = 19859-6) 6.70 0-5.0 H [facility] PlanoTroponin P8146-38-83 10:55:00* Test Item Value Reference Range Interpretation Comments Troponin I (test code = KQH5656) 0.024 0-0.300 [facility] PlanoCreatine Lpjhpl2383-73-96 10:48:00* Test Item Value Reference Range Interpretation Comments Creatine Kinase (test code = 2157-6) 99 29-168 [facility] PlanoTriglycerides Hkopd2323-27-13 07:39:00* Test Item Value Reference Range Interpretation Comments Triglycerides Level (test code = 2571-8) 56 0-149 [facility] PlanoCholesterol Hfksk7189-13-22 07:39:00* Test Item Value Reference Range Interpretation Comments Cholesterol Level (test code = 2093-3) 184 0-199 Less than 200 mg/dL Low Bsxc469 - 239 mg/dL Borderline Rlfk546 m g/dl and greater High Risk [facility] PlanoLDL Lpnyvvcefpv7293-28-60 07:39:00* Test Item Value Reference Range Interpretation Comments LDL Cholesterol (test code = 2089-1) 120 60-130 [facility] PlanoHDL Amwhmmjjfag0834-03-94 07:39:00* Test Item Value Reference Range Interpretation Comments HDL Cholesterol (test code = 2085-9) 53 40-60 [facility] PlanoCholesterol/HDL Eyghy5739-26-84 07:39:00 * Test Item Value Reference Range Interpretation Comments Cholesterol/HDL Ratio (test code = 9830-1) 3.5 3.0-3.6 [facility] PlanoHemoglobin A1c Bytazqs0685-66-13 07:38:00 * Test Item Value Reference Range Interpretation Comments Hemoglobin A1c Percent (test code = Hemoglobin A1c Percent) 7.2 4.0-7.0 H [facility] PlanoCHEST SINGLE (PORTABLE)2018-11-03 06:51:00 [place] [address] Patient Name: GAURAV ESCOBEDO MR #: [id number] : 1940 Age/Sex: 78/F Req #: [id number] Adm Physician: FRANKLIN CEVALLOS MD Ordered by: MADDY LEONG DIESEL ENGINE MECHANIC Report #: [id number] Location: MED/SURG Room/Bed: [facility] Procedure: [id number] DX /CHEST SINGLE (PORTABLE) Exam Date: 11/03/18 [...] 11/03/18651 COPY TO: MADDY LEONG NP Total Ykfrsuvmy8709-38-03 03:45:00* Test Item Value Reference Range Interpretation Comments Total Bilirubin (test code = 1974-) 0.3 0.2-1.2 [facility] PlanoAspartate Amino Transf (AST/SGOT) 2018-11-03 03:45:00* Test Item Value Reference Range Interpretation Comments Aspartate Amino Transf (AST/SGOT) (test code = Aspartate Amino Transf (AST/SGOT)) 12 5-34 [facility] PlanoAlanine Aminotransferase (ALT/SGPT) 2018-11-03 03:45:00* Test Item Value Reference Range Interpretation Comments Alanine Aminotransferase (ALT/SGPT) (test code = 1742-6) 13 0-55 [facility] PlanoTotal Rvcfcpy9416-78-60 03:45:00* Test Item Value Reference Range Interpretation Comments Total Protein (test code = 2885-2) 6.6 6.5-8.1 [facility] PlanoAlbumin2019-08-20 03:45:00* Test Item Value Reference Range Interpretation Comments Albumin (test code = 1751-7) 3.5 3.5-5.0 [facility] PlanoGlobulin2019-08-20 03:45:00* Test Item Value Reference Range Interpretation Comments Globulin (test code = 90175-8) 3.1 2.3-3.5 [facility] PlanoAlbumin/Globulin Uotqu9882-59-69 03:45:00 * Test Item Value Reference Range Interpretation Comments Albumin/Globulin Ratio (test code = 1759-0) 1.1 0.8-2.0 [facility] PlanoAlkaline Lshlfrsbxuw1631-01-65 03:45:00* Test Item Value Reference Range Interpretation Comments Alkaline Phosphatase (test code = 6768-6) 65 40-150 [facility] PlanoMagnesium Rnnat5646-80-28 19:37:00* Test Item Value Reference Range Interpretation Comments Magnesium Level (test code = 63347-5) 2.0 1.3-2.1 [facility] PlanoMagnesium Tmobp1441-09-08 19:37:00* Test Item Value Reference Range Interpretation Comments Magnesium Level (test code = 11056-1) 2.0 1.3-2.1 [facility] PlanoCHEST SINGLE (PORTABLE)2018-11-02 18:32:00 [facility] [address] [place] [address] Patient Name: GAURAV ESCOBEDO MR #: [id number] : 1940 Age/Sex: 78/F Req #: [id number] Adm Physician: Ordered by: JOSE STONE MD Report #: [id number] Location: ER Room/Bed: Procedure: [id number] DX/CHEST [...] Transcribed By: HA on 11/02/181833 COPY TO: JOSE DAVID MD [place] [address] Patient Name: GAURAV ESCOBEDO MR #: [id number] : 1940 Age/Sex: 76/F Req #: [id number] Adm Physician: Ordered by: LULA ISABEL MD Report #: [id number] Location: ER Room/Bed: Procedure: [id number] DX/FOOT LEFT COMPLETE Exam Date: 02/02/17 Exam [...] LULA ISABEL MD ANKLE 3+ VIEWS LEFT [place] [address] Patient Name: GAURAV ESCOBEDO MR #: [id number] : 1940 Age/Sex: 76/F Req #: [id number] Adm Physician: Ordered by: LULA ISABEL MD Report #: [id number] Location: ER Room/Bed: Procedure: [id number] DX/ANKLE 3+ VIEWS LEFT Exa m Date: [...]
[2019-12-22 15:50] VITALS: BP 160/75
[2019-12-22 16:00] VITALS: BP 167/86
[2019-12-22 18:11] VITALS: BP 167/86
[2019-12-22] MEDS ORDERED: MORPHINE SULFATE 2 MG/ML SYR 1ML IV STA (18:16)
[2019-12-22] MEDS ORDERED: XANAX1 MG PO (18:54)
--- NOTE | 2019-12-22 19:00 | Consultation ---
DATE OF CONSULTATION: 12/22/2019 Cardiology Consultation REQUESTING PHYSICIAN: Dr. Sifuentes. REASON FOR CONSULTATION: Chest pain. HISTORY OF PRESENT ILLNESS: This is an 79-year-old woman with history of hypertension, hyperlipidemia, diabetes mellitus, atrial fibrillation, and anxiety, who presents with complaints of chest pain. The patient reports she began having chest pain last night, described it as 8 to 9/10 in severity with radiation down her left arm. The pain lasted all night. It was not associated with shortness of breath, nausea, or diaphoresis. She checked her blood pressure and noted it was in the 190s yesterday. Today, she went to her contracts attorney and repeat blood pressure remained in the 190s and so she was sent to the ER for further evaluation. REVIEW OF SYSTEMS: Negative except as per HPI. PAST MEDICAL HISTORY: 1. Hypertension. 2. Hyperlipidemia. 3. Diabetes mellitus. 4. Atrial fibrillation. PAST SURGICAL HISTORY: 1. Cataract surgery. 2. Knee replacement. 3. Hysterectomy. 4. Ankle surgery. ALLERGIES: PLEASE SEE EMR. MEDICATIONS: Please see medication list. SOCIAL HISTORY: No tobacco, alcohol, or illicit drugs. FAMILY HISTORY: Noncontributory to current illness. PHYSICAL EXAMINATION: VITAL SIGNS: Temperature 98.1 degrees, pulse 73, respiratory rate 14, blood pressure 165/72, and oxygen saturation 97% on room air. GENERAL: Elderly woman, in no acute distress. Awake and alert. HEENT: Normocephalic and atraumatic. Pupils equal. No scleral icterus. NECK: Supple. No thyromegaly or cervical lymphadenopathy. No carotid bruits. LUNGS: Clear to auscultation bilaterally. No wheezes or crackles. CARDIOVASCULAR: Normal rate. Regular rhythm. No murmur. Normal S1 and S2. ABDOMEN: Soft and nontender. EXTREMITIES: No edema. NEUROLOGIC: Nonfocal exam. LABORATORY DATA: WBC 15.18, hemoglobin 15.1, hematocrit 45.6, and platelets 234. Sodium 133, potassium 4.1, chloride 96, CO2 25, BUN 20, and creatinine 0.91. Troponin less than 0.001. EKG, sinus rhythm with PACs, LVH with repolarization abnormality. IMPRESSION: 1. Chest pain. 2. Hypertension, uncontrolled. 3. Leukocytosis. 4. Hyperlipidemia. 5. Diabetes mellitus. 6. Atrial fibrillation, status post Watchman. No longer on anticoagulation. RECOMMENDATIONS: Trend troponin to rule out myocardial infarction. Given elevated D-dimer, recommend CTA of the chest to rule out PE. The patient's blood pressure is not well controlled, however, she has been attempted on multiple antihypertensive regimens with reported allergies to multiple medications. The patient's last stress test was with normal myocardial perfusion. If ruled out for myocardial infarction and negative for PE, we will plan for repeat ischemic evaluation with nuclear stress test. Thank you for this consult. We will continue to follow. Cyndi Murphy MD ABS/MODL /[id number]
--- NOTE | 2019-12-22 19:18 | NUR ---
NOTIFIED JIG OPERATOR NEED FOR REPORT.
[2019-12-22] MEDS ORDERED: ACETAMINOPHEN 325 MG/10 ML UDC PO PRN (19:30)
[2019-12-22] MEDS ORDERED: DEXTROSE 50% SYRINGE 50 ML IV PRN (19:30)
[2019-12-22] MEDS ORDERED: TRAMADOL HCL 50 MG TAB PO PRN (19:30)
[2019-12-22 19:38] VITALS: BP 187/56
--- NOTE | 2019-12-22 19:38 | NUR ---
RECEIVED REPORT FROM DAYSHIFT NURSE VIA TELEPHONE. PATIENT ALERT AND ORIENTED. NO ADVERSE SIGNS AT THIS TIME.
--- NOTE | 2019-12-22 19:50 | History and Physical ---
CHIEF COMPLAINT: Chest pain. HISTORY OF PRESENT ILLNESS: Ms. Joseph is an 79-year-old female. She presented to the emergency room with complaints of chest pain which was substernal, oybe-ja-xromxivu in intensity started last night. She has severe reproducible tenderness, however, she has a history of atrial fibrillation, anxiety, diabetes, hyperlipidemia, and she has a history of Watchman procedure in the past as well. She reports that two days before the chest pain started, she felt some tingling and numbness in the left toe as well. She denies any nausea, vomiting, or diarrhea. She has history of anxiety. REVIEW OF SYSTEMS: GENERAL: Denies any fever or chills. HEAD: Denies any head trauma. ENT: Denies any earache. CVS: Chest pain. RESPIRATORY: No shortness of breath. The rest of the review of systems are negative except as in HPI. PAST MEDICAL HISTORY: Hypertension, atrial fibrillation, hyperlipidemia, diabetes, cataract surgery, knee replacement, hysterectomy, ankle surgery. FAMILY AND SOCIAL HISTORY: She does not smoke. PHYSICAL EXAMINATION: VITAL SIGNS: Temperature 98.5, pulse of 88, blood pressure 167/86, respiratory rate of 18, and O2 saturation 96%. HEENT: Head is atraumatic and normocephalic. NECK: Supple. CHEST: Clear to auscultation bilaterally. No wheezing. She has reproducible tenderness. HEART: S1 and S2 audible. ABDOMEN: Soft. EXTREMITIES: No pedal edema. NEUROLOGIC: Awake, alert. No focal neurologic deficits. LABORATORY DATA: White count of 15,000, hemoglobin 15.1, platelets 234. Chemistry is within normal limits. D-dimer is 0.7. Chest x-ray, there is cardiomegaly with some central congestion. No effusion. ASSESSMENT/PLAN: Ms. Joseph is an 79-year-old female with reproducible chest pain and could be costochondritis. However, significant history of atrial fibrillation. We will consult Cardiology. Chest x-ray showing mild congestion. We will start the patient on diuretics. The patient has significant allergies to multiple medications. We will review them and start the medications accordingly. I will start the low-dose prednisone for reproducible chest pain. We will start the patient on sliding scale for diabetes mellitus. MD STU Duran/REINALDOL /[id number]
[2019-12-22 20:00] VITALS: BP 187/56
[2019-12-22] MEDS ORDERED: ALPRAZOLAM 0.5 MG TAB PO SCH (21:00)
[2019-12-22] MEDS ORDERED: INSULIN GLARGINE 100 UNITS/ML VIAL SQ SCH (21:00)
[2019-12-22] MEDS: METHYLPREDNISOLONE SOD SUCC 40 MG/ML VIAL 1ML IV SCH (21:16)
[2019-12-22] MEDS: INSULIN REGULAR, HUMAN 100 UNIT/1 ML 3ML VIAL SQ SCH (21:17)
--- NOTE | 2019-12-22 21:45 | NUR ---
BEDSIDE EDUCATION PROVIDED REGARDING SIGNS AND SYMPTOMS OF HIGH AND LOW BLOOD SUGAR. VERBALIZES UNDERSTANDING. INSTRUCTED TO ALERT NURSE OF SIGNS OR SYMPTOMS.
[2019-12-23] VITALS: BP 149/46
[2019-12-23 04:50] VITALS: BP_SYST 113; BP_SYST 156; BP_DIAS 60; BP_DIAS 77
[2019-12-23 04:54] LABS: BASOPHILS % 0.4 % (0.0-1.0); EOSINOPHILS % 0.1 % (0.0-6.0); HEMATOCRIT 40.4 % (34.2-44.1); HEMOGLOBIN 14.1 g/dL (12.0-16.0); LYMPHOCYTES # (AUTO) 1.2 (1.0-3.2); LYMPHOCYTES % 14.5 % (18.0-39.1); MEAN CORPUSCULAR HGB CONC 34.9 g/dL (31-35); MEAN CORPUSCULAR VOLUME 91.8 fL (81-99); MONOCYTES # (AUTO) 0.2 (0.2-0.8); NEUTROPHILS # (AUTO) 6.8 (2.1-6.9); NEUTROPHILS % 82.9 % (38.7-80.0); PLATELET COUNT 191 x10e3/uL (140-360); RED CELL DISTRIBUTION WIDTH 13.3 % (11.7-14.4)
[2019-12-23 05:14] LABS: ANION GAP 16.4 mmol/L (8-16); BLOOD UREA NITROGEN 21 mg/dL (7-26); BUN/CREATININE RATIO 26 (6-25); CALCIUM 9.3 mg/dL (8.4-10.2); CARBON DIOXIDE 23 mmol/L (22-29); CHLORIDE 101 mmol/L (98-107); CREATININE, SERUM 0.82 mg/dL (0.57-1.11); EST GLOMERULAR FILTRATION RATE > 60 ML/MIN (60-); GLUCOSE 215 mg/dL (74-118); POTASSIUM 4.4 mmol/L (3.5-5.1); SODIUM 136 mmol/L (136-145)
--- NOTE | 2019-12-23 07:15 | NUR ---
REPORT GIVEN TO DAYSHIFT NURSE. ALERT AND ORIENTED. RESTING IN BED. NO SIGNS IV INFILTRATION. BED LOCKED AND IN LOW POSITION. CALL LIGHT WITHIN REACH.
[2019-12-23 07:44] VITALS: BP 197/69
[2019-12-23 08:03] VITALS: BP 197/69
[2019-12-23] MEDS: INSULIN REGULAR, HUMAN 100 UNIT/1 ML 3ML VIAL SQ SCH ×2 (08:27→12:34)
[2019-12-23] MEDS: GLIMEPIRIDE 2 MG TAB PO SCH ×2 (08:35→16:54)
[2019-12-23] MEDS: METHYLPREDNISOLONE SOD SUCC 40 MG/ML VIAL 1ML IV SCH (08:35)
[2019-12-23] MEDS ORDERED: SPIRONOLACTONE 25 MG TAB PO SCH (09:00)
[2019-12-23] MEDS ORDERED: HYDROCHLOROTHIAZIDE 25 MG TAB PO SCH (09:00)
[2019-12-23] MEDS ORDERED: LOSARTAN POTASSIUM 25 MG TAB PO SCH (10:00)
--- NOTE | 2019-12-23 10:30 | NUR ---
OBS DAY 1. SENT TO R1 FOR LOC DETERMINATION
--- NOTE | 2019-12-23 11:15 | Progress Note ---
DATE: SUBJECTIVE: The patient is doing better. No distress. Blood sugars have been stable. Chest pain has resolved, likely costochondritis. PHYSICAL EXAMINATION: VITAL SIGNS: Temperature 97.6, pulse of 66, blood pressure 156/60, and respiratory rate of 18. CHEST: Clear to auscultation bilaterally. ABDOMEN: Soft. NEUROLOGIC: Awake and alert. LABORATORY DATA: White count of 8000 and hemoglobin 14.1. Chemistries within normal limits. ASSESSMENT/PLAN: Reproducible chest pain, likely costochondritis. Once cleared by Cardiology, THE patient can be discharged home on p.o. prednisone. Home medications will be continued for blood pressure control and she will be discharged to follow up with Dr. Kyrie Altamirano once cleared by Cardiology. MD STU Duran/JADA /[id number]
[2019-12-23 11:45] VITALS: BP 176/73
--- NOTE | 2019-12-23 12:45 | NUR ---
P[facility] case account ending in 0399 has been reviewed and completed by PAS Physicians. Service Line: Level of Care (LOC) / Admission Status Review Initial patient type was submitted as: IO - Initial Observation PAS Recommendation: OU
--- NOTE | 2019-12-23 13:07 | NUR ---
BHAKTI letter delivered and explained to pt. She verbalized understanding. Copy given to pt. Signed copy placed in chart.
--- NOTE | 2019-12-23 13:21 | Progress Note ---
DATE: 12/23/2019 Cardiology Progress Note SUBJECTIVE: The patient denies chest pain or shortness of breath. OBJECTIVE: VITAL SIGNS: Temperature 97.6 degrees, pulse 66, respiratory rate 18, blood pressure , and oxygen saturation 96% on room air. GENERAL: Awake, alert, elderly woman, in no acute distress. LUNGS: Clear to auscultation bilaterally. No wheezes or crackles. CARDIOVASCULAR: Normal rate. Regular rhythm. No murmur. Normal S1 and S2. ABDOMEN: Soft and nontender. EXTREMITIES: No edema. CARDIAC MEDICATIONS: Spironolactone 25 mg p.o. daily and hydrochlorothiazide 50 mg p.o. daily. LABORATORY DATA: Sodium 136, potassium 4.4, chloride 101, CO2 23, BUN 21, and creatinine 0.82. Troponin 0.16. WBC 8.16, hemoglobin 14.1, hematocrit 40.4, and platelets 191. Telemetry was personally reviewed and interpreted revealing normal sinus rhythm. IMPRESSION: 1. Chest pain. 2. Hypertension, uncontrolled. 3. Leukocytosis, resolved. 4. Hyperlipidemia. 5. Diabetes mellitus. 6. Atrial fibrillation, status post Watchman. No longer on anticoagulation. RECOMMENDATIONS: No evidence of myocardial infarction on serial cardiac biomarkers. Given elevated D-dimer, recommend the patient be evaluated for pulmonary embolism. Given iodine allergy, we will proceed with V/Q scan. The patient's blood pressure is not well controlled. She has been on multiple antihypertensive regimens with reported allergies to multiple medications. Continue spironolactone and hydrochlorothiazide. Attempt addition of losartan. The patient's last stress test was in February of 2018 with normal myocardial perfusion. As she is chest pain-free and ruled out for myocardial infarction, she may follow up as an outpatient for further ischemic evaluation. If negative, she may be discharged from a cardiac standpoint with further titration of antihypertensive therapy as an outpatient. Thank you for this consult. We will continue to follow. Cyndi Murphy MD ABS/MODL /[id number]
[2019-12-23 14:27] LABS: FREE T4 (FREE THYROXINE) 0.94 ng/dL (0.8-1.8); THYROID STIMULATING HORMONE 0.673 uIU/mL (0.350-4.940)
[2019-12-23 15:29] VITALS: BP 167/68
--- NOTE | 2019-12-23 16:28 | Diagnostic Imaging Report ---
Perfusion Lung Scan NOTE: Lung ventilation studies with xenon are not being performed per the recommendation of the Society of Nuclear Medicine and Molecular Imaging. It is not possible to be certain that the ventilation system is adequately disinfected. Ventilation studies with Tc-99m DTPA particles is contraindicated because the delivery by nebulization generates too many water droplets from the patient's airway. Clinical Information: Chest pain; SOB. Comparison: Chest radiograph 12/22/2019 Discussion: Ventilation images were not obtained. See note above. Perfusion images of the lungs were obtained in multiple projections following intravenous administration of approximately 5.9 mCi of Tc-99m MAA. Distribution of tracer is mildly irregular throughout the lungs. There are no segmental perfusion defects of any size. The cardiomediastinal silhouette is borderline enlarged. Impression: 1. Scan findings represent a VERY LOW probability for acute pulmonary embolic disease based on the perfusion-only modified PIOPED II criteria. Concurrent ventilation study would not alter the assigned probability for acute PE. 2. Scan findings are compatible with diffuse parenchymal and/or obstructive lung disease. 3. Borderline enlarged cardiac silhouette. Signed by: Dr. Briana Garcia M.D. on 12/23/2019 4:25 PM
[2019-12-23] MEDS ORDERED: INSULIN LISPRO 100 UNIT/1 ML 3ML VIAL SQ SCH (16:30)
--- NOTE | 2019-12-23 20:38 | Consultation ---
DATE OF CONSULTATION: 12/23/2019 ENDOCRINE CONSULTATION: This is a patient of Dr. Sifuentes. Thank you very much for referring this patient. HISTORY OF PRESENT ILLNESS: This is an 79-year-old female who was referred to me for evaluation of uncontrolled diabetes mellitus. The patient reportedly is a known diabetic for almost 15 to 20 years and takes Lantus insulin 50 units at bedtime and glimepiride 2 mg twice daily. She came to the hospital with history of pain in the right leg and cough. She has history of coronary artery disease, status post stent placement; hypertension, hyperlipidemia, obesity. The patient is being evaluated for the chest pain and rule out pulmonary embolism. The patient is on several medications at home and she was also given some Solu-Medrol. She is on losartan 25 mg once daily, spironolactone 25 mg once daily and glimepiride 2 mg twice daily. PHYSICAL EXAMINATION: GENERAL: Today, the patient is alert, awake, little bit apprehensive. She is moderately overweight. VITAL SIGNS: Her heart rate is around 78, blood pressure is 130/80 mmHg. HEENT: Essentially unremarkable. Thyroid is palpable. Clinically, she is near euthyroid. CHEST: Bilateral vesicular breathing. She has bilateral bronchospasm. CARDIAC: First and second heart sounds. There is no third or fourth heart sounds. Ejection systolic murmur is grade 2/6. The patient also has history of atrial fibrillation in the past. The blood sugars have been in the range of 153 to 280 during the hospital stay. CLINICAL IMPRESSION: Diabetes mellitus type 2, uncontrolled with complications precipitated by steroids. Chest pain, rule out pulmonary embolism. Rule out deep venous thrombosis of the right leg. Hypertension. History of coronary artery disease status post stents. PLAN: At this time is to do hemoglobin A1c, thyroid function tests, monitor her blood sugars closely. Continue the Lantus and the Humalog insulin depending upon the blood sugars. Thanks again for referring this patient. I will be following this patient with you. MD MILAN Espinal/JADA /[id number]
== END 2019-12-23 18:05 | disposition home or self-care (01) ==
LOC: ER 12:12 → ERHOLD 14:01 → MED/SURG 15:11
PROVIDERS: ADMIT Internal Medicine; ATTEND Internal Medicine
DX: I48.91 Unspecified atrial fibrillation (principal); I51.7 Cardiomegaly; I10 Essential (primary) hypertension; Z95.818 Presence of other cardiac implants and grafts; E11.9 Type 2 diabetes mellitus without complications; E78.5 Hyperlipidemia, unspecified; I25.10 Atherosclerotic heart disease of native coronary artery without angina pectoris; Z95.5 Presence of coronary angioplasty implant and graft
CPT/HCPCS: 36415 ×2; 71045; 78580; 80048; 80053; 82948 ×2; 83036; 83690; 84439; 84443; 84484 ×2; 85025 ×2; 85379; 93005; 99284; A9540; G0378 ×2; J1815; J1817; J2920 ×2; U0002

== ENCOUNTER 2020-08-28 11:26 | Observation (INO) | payer MEDICARE ==
[2020-08-23 09:15] LABS: BASOPHILS # (AUTO) 0.1 (0.0-0.1); BASOPHILS % 0.8 % (0.0-1.0); EOSINOPHILS # (AUTO) 0.3 (0.0-0.4); EOSINOPHILS % 2.6 % (0.0-6.0); HEMATOCRIT 46.2 % (34.2-44.1); HEMOGLOBIN 14.9 g/dL (12.0-16.0); LYMPHOCYTES # (AUTO) 2.2 (1.0-3.2); LYMPHOCYTES % 16.6 % (18.0-39.1); MEAN CORPUSCULAR HEMOGLOBIN 29.9 pg (28-32); MEAN CORPUSCULAR HGB CONC 32.3 g/dL (31-35); MEAN CORPUSCULAR VOLUME 92.8 fL (81-99); MONOCYTES # (AUTO) 0.8 (0.2-0.8); MONOCYTES % 6.2 % (4.4-11.3); NEUTROPHILS # (AUTO) 9.8 (2.1-6.9); NEUTROPHILS % 73.3 % (38.7-80.0); PLATELET COUNT 214 x10e3/uL (140-360); RED BLOOD COUNT 4.98 x10e6/uL (3.6-5.1); RED CELL DISTRIBUTION WIDTH 14.6 % (11.7-14.4)
[2020-08-23 09:39] LABS: ALBUMIN 3.9 g/dL (3.5-5.0); ALBUMIN/GLOBULIN RATIO 1.1 (0.8-2.0); ANION GAP 16.1 mmol/L (8-16); CALCIUM 9.5 mg/dL (8.4-10.2); CREATININE, SERUM 1.02 mg/dL (0.57-1.11); POTASSIUM 4.1 mmol/L (3.5-5.1)
[~2020-08-28] VITALS: Ht 154.9 cm; Wt 101.2 kg
[2020-08-28] VITALS (12 sets, daily range): BP systolic 133–191; BP diastolic 61–94
[~2020-08-28 11:26] MED LIST changes: +AIRBORNE ELDER PO; +ASPIRIN EC81 MG PO; +TURMERIC538 MG PO; +VITAMIN C1000 MG PO; +VITAMIN D325 MCG PO; +XANAX1 MG PO; +ZINC PO; +[UNRECOGNIZED DRUG - OTHER] PO
[2020-08-28] MEDS ORDERED: DIPHENHYDRAMINE HCL INJ 50 MG/ML VIAL ONE (13:29)
[2020-08-28] MEDS ORDERED: FAMOTIDINE 20 MG/2 ML VIAL IV ONE (13:29)
[2020-08-28] MEDS ORDERED: METHYLPREDNISOLONE SOD SUCC 125 MG/2ML VIAL ONE (13:29)
[2020-08-28] MEDS ORDERED: HEPARIN SOD/SOD CHLORIDE 2,000 ML ONE (13:42)
[2020-08-28] MEDS ORDERED: MIDAZOLAM HCL 2 MG/2 ML VIAL ONE (13:42)
[2020-08-28] MEDS ORDERED: FENTANYL CITRATE/PF 100MCG/2 ML INJ ONE (13:42)
[2020-08-28] MEDS ORDERED: SODIUM CHLORIDE 0.9% 1000ML 1,000 ML ONE (13:43)
[2020-08-28] MEDS ORDERED: IOPAMIDOL 300MG/ML 100 ML INFUS..BTL IV ONE (13:43)
[2020-08-28] MEDS ORDERED: CLOPIDOGREL BISULFATE 75 MG TAB ONE (14:42)
[2020-08-28] MEDS ORDERED: ASPIRIN 325 MG TAB ONE (14:42)
[2020-08-28] MEDS ORDERED: PRASUGREL 10 MG TAB ONE (15:05)
[2020-08-28] MEDS ORDERED: ACETAMINOPHEN 325 MG TAB PO PRN (16:45)
[2020-08-28] MEDS ORDERED: INSULIN GLARGINE 100 UNITS/ML VIAL SQ SCH (21:00)
[2020-08-28] MEDS ORDERED: [UNRECOGNIZED DRUG - OTHER] PO SCH (21:00)
[2020-08-28] MEDS ORDERED: ASPIRIN 81 MG ENTERIC COATED PO SCH (21:00)
[2020-08-28] MEDS ORDERED: [UNRECOGNIZED DRUG - OTHER] PO SCH (21:00)
[2020-08-29] VITALS: BP 152/43
[2020-08-29 04:00] VITALS: BP 143/95
[2020-08-29] MEDS ORDERED: MULTIVITAMINS/MINERALS TAB PO SCH (06:00)
[2020-08-29 07:33] VITALS: BP 163/47
[2020-08-29] MEDS ORDERED: GLIMEPIRIDE 2 MG TAB PO SCH (08:00)
[2020-08-29 08:58] VITALS: BP 163/47
[2020-08-29] MEDS ORDERED: EFFIENT10 MG PO (08:59)
[2020-08-29] MEDS ORDERED: HYDROCHLOROTHIAZIDE 25 MG TAB PO SCH (09:00)
[2020-08-29] MEDS ORDERED: CHOLECALCIFEROL 1,000 UNIT TAB PO SCH (09:00)
[2020-08-29] MEDS ORDERED: ASCORBIC ACID 500 MG TAB PO SCH (09:00)
[2020-08-29] MEDS ORDERED: PRASUGREL 10 MG TAB PO SCH (09:00)
[2020-08-29] MEDS ORDERED: TURMERIC ROOT EXTRACT PO SCH (09:00)
[2020-08-29] MEDS ORDERED: SPIRONOLACTONE 25 MG TAB PO SCH (09:00)
[2020-08-29] MEDS ORDERED: NON-FORMULARY MEDICATION (Cinnamon Bark (Cinnamon) 1,000 MG) PO SCH (09:00)
[2020-08-29] MEDS ORDERED: ZINC SULFATE 50 MG CAP PO SCH (09:00)
== END 2020-08-29 10:19 | disposition home or self-care (01) ==
LOC: CATH LAB 11:26 → CATH LAB V 15:53 → IMCU 16:33
PROVIDERS: ADMIT Internal Medicine; ATTEND Internal Medicine
DX: I25.118 Atherosclerotic heart disease of native coronary artery with other forms of angina pectoris (principal); I65.23 Occlusion and stenosis of bilateral carotid arteries; I25.82 Chronic total occlusion of coronary artery; I10 Essential (primary) hypertension; E11.9 Type 2 diabetes mellitus without complications; F41.9 Anxiety disorder, unspecified; Z83.3 Family history of diabetes mellitus; Z82.49 Family history of ischemic heart disease and other diseases of the circulatory system
CPT/HCPCS: 36224; 92978; 93458; C9600; 36415; 76937; 80053; 82948; 83880; 85025; 85347; 92928; 96372; 99152; 99153; C1725; C1753; C1760; C1769; C1874; C1894; G0378; J1200; J1815; J2250; J2930; J3010; J7030; Q9967

== ENCOUNTER 2021-03-17 23:41 | Inpatient (IN) | payer MEDICARE ==
[~2021-03-17] VITALS: Ht 154.9 cm; Wt 101.2 kg
[2021-03-18] VITALS (7 sets, daily range): BP systolic 121–149; BP diastolic 40–58
[2021-03-18] MEDS ORDERED: PIPERACILLIN/TAZOBACTAM 3.375 GM in SODIUM CHLORIDE 0.9% 50ML 50 ML IV ONE ×2
[2021-03-18] MEDS ORDERED: ACETAMINOPHEN 650 MG SUPP PR ONE ×2 (00:30→01:15)
[2021-03-18 00:46] LABS: BASOPHILS % 0.1 % (0.0-1.0); EOSINOPHILS # (AUTO) 0.5 (0.0-0.4); EOSINOPHILS % 2.5 % (0.0-6.0); HEMATOCRIT 25.5 % (34.2-44.1); HEMOGLOBIN 7.9 g/dL (12.0-16.0); LYMPHOCYTES # (AUTO) 1.6 (1.0-3.2); LYMPHOCYTES % 9.1 % (18.0-39.1); MEAN CORPUSCULAR HEMOGLOBIN 29.8 pg (28-32); MEAN CORPUSCULAR VOLUME 96.2 fL (81-99); MONOCYTES # (AUTO) 0.9 (0.2-0.8); MONOCYTES % 5.1 % (4.4-11.3); NEUTROPHILS # (AUTO) 14.8 (2.1-6.9); NEUTROPHILS % 82.5 % (38.7-80.0); PLATELET COUNT 224 x10e3/uL (140-360); RED BLOOD COUNT 2.65 x10e6/uL (3.6-5.1); RED CELL DISTRIBUTION WIDTH 14.1 % (11.7-14.4)
[2021-03-18 00:55] LABS: INR 1.16; PARTIAL THROMBOPLASTIN TIME 31.6 seconds (23.8-35.5); PROTHROMBIN TIME 15.8 seconds (11.9-14.5)
[2021-03-18 01:02] LABS: ALBUMIN 1.8 g/dL (3.5-5.0); ALBUMIN/GLOBULIN RATIO 0.5 (0.8-2.0); ANION GAP 15.3 mmol/L (8-16); CALCIUM 8.4 mg/dL (8.4-10.2); CREATININE, SERUM 0.71 mg/dL (0.57-1.11); POTASSIUM 4.3 mmol/L (3.5-5.1)
[2021-03-18 01:48] LABS: CREATINE KINASE MB 0.7 ng/mL (0-5.0)
[2021-03-18 02:11] LABS: CLARITY,URINE CLEAR (CLEAR); COLOR,URINE AMBER (YELLOW); KETONES,URINE NEGATIVE (NEGATIVE); LEUKOCYTE ESTERASE ,URINE NEGATIVE (NEGATIVE); NITRITE,URINE NEGATIVE (NEGATIVE); PROTEIN,URINE DIPSTICK NEGATIVE (NEGATIVE); URINE UROBILINOGEN 0.2 mg/dL (0.2 - 1)
[2021-03-18 02:12] LABS: BACTERIA,URINE RARE /HPF; EPITHELIAL CELLS,URINE RARE /LPF; WBC,URINE (MAN) 0-5 /HPF (0-5)
[2021-03-18] MEDS ORDERED: SODIUM CHLORIDE 0.9% 1000ML 1,000 ML IV SCH (02:45)
[2021-03-18] MEDS ORDERED: SODIUM CHLORIDE 0.9% 250ML 250 ML IV ONE ×2 (02:45)
[2021-03-18] MEDS ORDERED: SODIUM CHLORIDE 0.9% 1000ML 1,000 ML ONE (02:53)
[2021-03-18] MEDS ORDERED: ALBUTEROL/IPRATROPIUM 3 ML NEB ONE (03:01)
[2021-03-18] MEDS ORDERED: ALBUTEROL/IPRATROPIUM 3 ML NEB NEB PRN (03:45)
[2021-03-18] MEDS: PIPERACILLIN/TAZOBACTAM 3.375 GM in SODIUM CHLORIDE 0.9% 50ML 50 ML IV SCH ×3 (05:26→22:16)
[2021-03-18] MEDS ORDERED: SODIUM CHLORIDE 0.9% 50ML 100 ML ONE (05:38)
[2021-03-18] MEDS ORDERED: PIPERACILLIN/TAZOBACTAM 3.375 GM VIAL ONE (05:39)
[2021-03-18 06:10] LABS: HEMATOCRIT 23.7 % (34.2-44.1); HEMOGLOBIN 7.3 g/dL (12.0-16.0)
[2021-03-18] MEDS ORDERED: SODIUM CHLORIDE 0.9% 250ML 250 ML ONE (11:29)
[2021-03-18] MEDS ORDERED: DEXTROSE 50% SYRINGE 50 ML IV PRN ×2 (12:45→14:45)
[2021-03-18 13:05] LABS: % IRON SATURATION 17 % (15-50); IRON 31 ug/dL (50-170); TOTAL IRON BINDING CAPACITY 179 ug/dL (261-478); TRANSFERRIN 128 mg/dL (180-382)
[2021-03-18] MEDS: DEXTROSE 5%/0.9% SOD CHL 1,000 ML IV SCH (14:39)
[2021-03-18] MEDS: INSULIN LISPRO 100 UNIT/1 ML 3ML VIAL SQ SCH ×2 (16:30→21:41)
[2021-03-18 16:32] LABS: HEMATOCRIT 24.7 % (34.2-44.1); HEMOGLOBIN 7.7 g/dL (12.0-16.0)
[2021-03-18] MEDS ORDERED: GLIMEPIRIDE 2 MG TAB PO SCH (17:00)
[2021-03-18] MEDS: [UNRECOGNIZED DRUG - OTHER] PO SCH (21:00)
[2021-03-18] MEDS: [UNRECOGNIZED DRUG - OTHER] PO SCH (21:00)
[2021-03-18] MEDS ORDERED: INSULIN GLARGINE 100 UNITS/ML VIAL SQ SCH (21:00)
[2021-03-19] VITALS (8 sets, daily range): BP systolic 119–157; BP diastolic 43–72
[2021-03-19] MEDS: DEXTROSE 5%/0.9% SOD CHL 1,000 ML IV SCH ×2 (03:39→16:11)
[2021-03-19 05:37] LABS: BASOPHILS % 0.2 % (0.0-1.0); EOSINOPHILS # (AUTO) 0.6 (0.0-0.4); EOSINOPHILS % 4.6 % (0.0-6.0); HEMATOCRIT 25.2 % (34.2-44.1); LYMPHOCYTES # (AUTO) 1.9 (1.0-3.2); LYMPHOCYTES % 15.3 % (18.0-39.1); MEAN CORPUSCULAR HEMOGLOBIN 30.1 pg (28-32); MEAN CORPUSCULAR HGB CONC 31.7 g/dL (31-35); MEAN CORPUSCULAR VOLUME 94.7 fL (81-99); MONOCYTES # (AUTO) 0.7 (0.2-0.8); MONOCYTES % 5.5 % (4.4-11.3); PLATELET COUNT 168 x10e3/uL (140-360); RED BLOOD COUNT 2.66 x10e6/uL (3.6-5.1); RED CELL DISTRIBUTION WIDTH 14.5 % (11.7-14.4)
[2021-03-19] MEDS: MULTIVITAMINS/MINERALS TAB PO SCH (06:00)
[2021-03-19] MEDS: PIPERACILLIN/TAZOBACTAM 3.375 GM in SODIUM CHLORIDE 0.9% 50ML 50 ML IV SCH ×3 (06:00→21:29)
[2021-03-19 06:07] LABS: ALBUMIN 1.8 g/dL (3.5-5.0); ALBUMIN/GLOBULIN RATIO 0.6 (0.8-2.0); ANION GAP 11.7 mmol/L (8-16); CALCIUM 7.6 mg/dL (8.4-10.2); CREATININE, SERUM 0.63 mg/dL (0.57-1.11); POTASSIUM 3.7 mmol/L (3.5-5.1)
[2021-03-19] MEDS: INSULIN LISPRO 100 UNIT/1 ML 3ML VIAL SQ SCH ×4 (07:30→20:24)
[2021-03-19] MEDS: SPIRONOLACTONE 25 MG TAB PO SCH (09:00)
[2021-03-19] MEDS: ASCORBIC ACID 500 MG TAB PO SCH (09:00)
[2021-03-19] MEDS: TURMERIC ROOT EXTRACT PO SCH (09:00)
[2021-03-19] MEDS: CINNAMON BARK 1000 MG PO SCH (09:00)
[2021-03-19] MEDS: [UNRECOGNIZED DRUG - OTHER] PO SCH (09:00)
[2021-03-19] MEDS: ZINC SULFATE 50 MG CAP PO SCH (09:00)
[2021-03-19] MEDS: CHOLECALCIFEROL 1,000 UNIT TAB PO SCH (09:00)
[2021-03-19] MEDS: ASCORBIC ACID PO SCH (09:00)
[2021-03-19] MEDS: IRON SUCROSE 100 MG in SODIUM CHLORIDE 0.9% 100 ML 100 ML IV SCH (10:50)
[2021-03-19] MEDS ORDERED: LIDOCAINE HCL 2% LOCAL INJ 5 ML SDV VIAL INJ ONE (13:20)
[2021-03-19] MEDS ORDERED: PROPOFOL IV EMULSION 10 MG/ML 20 ML VIAL ONE (13:20)
[2021-03-19 14:52] LABS: HEMATOCRIT 27.4 % (34.2-44.1); HEMOGLOBIN 8.6 g/dL (12.0-16.0)
[2021-03-19] MEDS: [UNRECOGNIZED DRUG - OTHER] PO SCH (20:26)
[2021-03-19] MEDS: [UNRECOGNIZED DRUG - OTHER] PO SCH (20:26)
[2021-03-20] VITALS (9 sets, daily range): BP systolic 117–157; BP diastolic 46–57
[2021-03-20] MEDS: MULTIVITAMINS/MINERALS TAB PO SCH (04:48)
[2021-03-20] MEDS: DEXTROSE 5%/0.9% SOD CHL 1,000 ML IV SCH ×3 (04:48→20:49)
[2021-03-20] MEDS: PIPERACILLIN/TAZOBACTAM 3.375 GM in SODIUM CHLORIDE 0.9% 50ML 50 ML IV SCH ×3 (04:48→21:39)
[2021-03-20 06:49] LABS: BASOPHILS % 0.2 % (0.0-1.0); EOSINOPHILS # (AUTO) 0.5 (0.0-0.4); EOSINOPHILS % 4.4 % (0.0-6.0); LYMPHOCYTES # (AUTO) 1.7 (1.0-3.2); LYMPHOCYTES % 14.3 % (18.0-39.1); MEAN CORPUSCULAR HEMOGLOBIN 30.1 pg (28-32); MEAN CORPUSCULAR HGB CONC 29.6 g/dL (31-35); MEAN CORPUSCULAR VOLUME 101.5 fL (81-99); MONOCYTES # (AUTO) 0.6 (0.2-0.8); NEUTROPHILS # (AUTO) 8.8 (2.1-6.9); NEUTROPHILS % 74.9 % (38.7-80.0); PLATELET COUNT 142 x10e3/uL (140-360); RED BLOOD COUNT 2.66 x10e6/uL (3.6-5.1); RED CELL DISTRIBUTION WIDTH 15.2 % (11.7-14.4)
[2021-03-20 06:50] LABS: ALBUMIN 1.8 g/dL (3.5-5.0); ALBUMIN/GLOBULIN RATIO 0.6 (0.8-2.0); ANION GAP 8.9 mmol/L (8-16); CALCIUM 8.1 mg/dL (8.4-10.2); CREATININE, SERUM 0.58 mg/dL (0.57-1.11); MAGNESIUM 2.4 MG/DL (1.3-2.1); POTASSIUM 3.9 mmol/L (3.5-5.1)
[2021-03-20] MEDS: INSULIN LISPRO 100 UNIT/1 ML 3ML VIAL SQ SCH ×4 (07:50→20:53)
[2021-03-20] MEDS: CINNAMON BARK 1000 MG PO SCH (08:19)
[2021-03-20] MEDS: TURMERIC ROOT EXTRACT PO SCH (08:19)
[2021-03-20] MEDS: ASCORBIC ACID 500 MG TAB PO SCH (08:20)
[2021-03-20] MEDS: [UNRECOGNIZED DRUG - OTHER] PO SCH (08:20)
[2021-03-20] MEDS: ZINC SULFATE 50 MG CAP PO SCH (08:20)
[2021-03-20] MEDS: ASCORBIC ACID PO SCH (08:20)
[2021-03-20] MEDS: CHOLECALCIFEROL 1,000 UNIT TAB PO SCH (08:20)
[2021-03-20] MEDS: SPIRONOLACTONE 25 MG TAB PO SCH (08:20)
[2021-03-20] MEDS: BALSAM PERU/CASTOR OIL 60 GM OINT...G. TP SCH (10:03)
[2021-03-20] MEDS: IRON SUCROSE 100 MG in SODIUM CHLORIDE 0.9% 100 ML 100 ML IV SCH (10:06)
[2021-03-20] MEDS: [UNRECOGNIZED DRUG - OTHER] PO SCH (20:49)
[2021-03-20] MEDS: [UNRECOGNIZED DRUG - OTHER] PO SCH (20:49)
[2021-03-21] VITALS (9 sets, daily range): BP systolic 116–133; BP diastolic 40–85
[2021-03-21] MEDS: MULTIVITAMINS/MINERALS TAB PO SCH (05:02)
[2021-03-21] MEDS: PIPERACILLIN/TAZOBACTAM 3.375 GM in SODIUM CHLORIDE 0.9% 50ML 50 ML IV SCH ×3 (05:12→21:51)
[2021-03-21 05:58] LABS: ALBUMIN 1.9 g/dL (3.5-5.0); ALBUMIN/GLOBULIN RATIO 0.6 (0.8-2.0); CALCIUM 7.9 mg/dL (8.4-10.2); CREATININE, SERUM 0.59 mg/dL (0.57-1.11)
[2021-03-21 06:06] LABS: BASOPHILS % 0.2 % (0.0-1.0); EOSINOPHILS # (AUTO) 0.4 (0.0-0.4); EOSINOPHILS % 3.4 % (0.0-6.0); HEMATOCRIT 27.7 % (34.2-44.1); LYMPHOCYTES # (AUTO) 1.6 (1.0-3.2); LYMPHOCYTES % 13.7 % (18.0-39.1); MEAN CORPUSCULAR HEMOGLOBIN 30.1 pg (28-32); MEAN CORPUSCULAR HGB CONC 28.9 g/dL (31-35); MEAN CORPUSCULAR VOLUME 104.1 fL (81-99); MONOCYTES # (AUTO) 0.5 (0.2-0.8); MONOCYTES % 4.4 % (4.4-11.3); NEUTROPHILS % 77.1 % (38.7-80.0); PLATELET COUNT 143 x10e3/uL (140-360); RED BLOOD COUNT 2.66 x10e6/uL (3.6-5.1); RED CELL DISTRIBUTION WIDTH 15.8 % (11.7-14.4)
[2021-03-21] MEDS: INSULIN LISPRO 100 UNIT/1 ML 3ML VIAL SQ SCH ×3 (07:59→16:49)
[2021-03-21] MEDS: [UNRECOGNIZED DRUG - OTHER] PO SCH (09:00)
[2021-03-21] MEDS: TURMERIC ROOT EXTRACT PO SCH (09:00)
[2021-03-21] MEDS: CHOLECALCIFEROL 1,000 UNIT TAB PO SCH (09:00)
[2021-03-21] MEDS: SPIRONOLACTONE 25 MG TAB PO SCH (09:00)
[2021-03-21] MEDS: IRON SUCROSE 100 MG in SODIUM CHLORIDE 0.9% 100 ML 100 ML IV SCH (09:00)
[2021-03-21] MEDS: DEXTROSE 5%/0.9% SOD CHL 1,000 ML IV SCH ×2 (09:00→21:51)
[2021-03-21] MEDS: ZINC SULFATE 50 MG CAP PO SCH (09:00)
[2021-03-21] MEDS: ASCORBIC ACID PO SCH (09:00)
[2021-03-21] MEDS: ASCORBIC ACID 500 MG TAB PO SCH (09:00)
[2021-03-21] MEDS: CINNAMON BARK 1000 MG PO SCH (09:00)
[2021-03-21] MEDS: BALSAM PERU/CASTOR OIL 60 GM OINT...G. TP SCH (09:00)
[2021-03-21] MEDS ORDERED: NYSTATIN 15 GM POWDER UD BTL TOP PRN (10:30)
[2021-03-21 11:23] LABS: PLATELET ESTIMATE SLIGHTLY DECREASED; PLATELET MORPHOLOGY COMMENT NORMAL
[2021-03-21 11:24] LABS: RBC MORPHOLOGY COMMENT NORMAL
[2021-03-21] MEDS: [UNRECOGNIZED DRUG - OTHER] PO SCH (21:00)
[2021-03-21] MEDS: [UNRECOGNIZED DRUG - OTHER] PO SCH (21:00)
[2021-03-21] MEDS ORDERED: INSULIN GLARGINE 100 UNITS/ML VIAL SQ SCH (21:00)
[2021-03-22] VITALS (8 sets, daily range): BP systolic 128–163; BP diastolic 43–91
[2021-03-22] MEDS: INSULIN LISPRO 100 UNIT/1 ML 3ML VIAL SQ SCH ×4 (01:14→17:47)
[2021-03-22] MEDS: INSULIN GLARGINE 100 UNITS/ML VIAL SQ SCH (01:16)
[2021-03-22 06:00] LABS: BASOPHILS % 0.2 % (0.0-1.0); EOSINOPHILS # (AUTO) 0.5 (0.0-0.4); EOSINOPHILS % 4.2 % (0.0-6.0); HEMATOCRIT 27.5 % (34.2-44.1); LYMPHOCYTES # (AUTO) 1.5 (1.0-3.2); LYMPHOCYTES % 12.8 % (18.0-39.1); MEAN CORPUSCULAR HEMOGLOBIN 30.3 pg (28-32); MEAN CORPUSCULAR HGB CONC 29.1 g/dL (31-35); MEAN CORPUSCULAR VOLUME 104.2 fL (81-99); MONOCYTES # (AUTO) 0.5 (0.2-0.8); MONOCYTES % 4.1 % (4.4-11.3); NEUTROPHILS # (AUTO) 9.3 (2.1-6.9); NEUTROPHILS % 76.9 % (38.7-80.0); PLATELET COUNT 181 x10e3/uL (140-360); RED BLOOD COUNT 2.64 x10e6/uL (3.6-5.1); RED CELL DISTRIBUTION WIDTH 16.7 % (11.7-14.4)
[2021-03-22 06:28] LABS: ANION GAP 9.7 mmol/L (8-16); CREATININE, SERUM 0.6 mg/dL (0.57-1.11); POTASSIUM 3.7 mmol/L (3.5-5.1)
[2021-03-22] MEDS: PIPERACILLIN/TAZOBACTAM 3.375 GM in SODIUM CHLORIDE 0.9% 50ML 50 ML IV SCH ×3 (06:56→22:00)
[2021-03-22] MEDS: MULTIVITAMINS/MINERALS TAB PO SCH (06:56)
[2021-03-22 07:28] LABS: LYMPHOCYTES % (MANUAL) 11 % (19-48); MONOCYTES % (MANUAL) 1 % (3.4-9.0); NEUTROPHILS % (MANUAL) 88 % (40-74)
[2021-03-22 07:29] LABS: PLATELET ESTIMATE ADEQUATE; PLATELET MORPHOLOGY COMMENT NORMAL; RBC MORPHOLOGY COMMENT NORMAL
[2021-03-22] MEDS: CINNAMON BARK 1000 MG PO SCH (09:00)
[2021-03-22] MEDS: ASCORBIC ACID PO SCH (09:00)
[2021-03-22] MEDS: [UNRECOGNIZED DRUG - OTHER] PO SCH (09:00)
[2021-03-22] MEDS: TURMERIC ROOT EXTRACT PO SCH (09:00)
[2021-03-22] MEDS: ZINC SULFATE 50 MG CAP PO SCH (09:36)
[2021-03-22] MEDS: ASCORBIC ACID 500 MG TAB PO SCH (09:36)
[2021-03-22] MEDS: SPIRONOLACTONE 25 MG TAB PO SCH (09:36)
[2021-03-22] MEDS: IRON SUCROSE 100 MG in SODIUM CHLORIDE 0.9% 100 ML 100 ML IV SCH (09:36)
[2021-03-22] MEDS: CHOLECALCIFEROL 1,000 UNIT TAB PO SCH (09:36)
[2021-03-22] MEDS: BALSAM PERU/CASTOR OIL 60 GM OINT...G. TP SCH (09:45)
[2021-03-22] MEDS: DEXTROSE 5%/0.9% SOD CHL 1,000 ML IV SCH (11:49)
[2021-03-22] MEDS: [UNRECOGNIZED DRUG - OTHER] PO SCH (21:00)
[2021-03-22] MEDS: [UNRECOGNIZED DRUG - OTHER] PO SCH (21:00)
[2021-03-23] VITALS (10 sets, daily range): BP systolic 142–169; BP diastolic 48–60
[2021-03-23] MEDS: INSULIN GLARGINE 100 UNITS/ML VIAL SQ SCH
[2021-03-23] MEDS: PIPERACILLIN/TAZOBACTAM 3.375 GM in SODIUM CHLORIDE 0.9% 50ML 50 ML IV SCH ×3 (05:32→23:35)
[2021-03-23] MEDS: DEXTROSE 5%/0.9% SOD CHL 1,000 ML IV SCH ×2 (05:32→13:51)
[2021-03-23] MEDS: MULTIVITAMINS/MINERALS TAB PO SCH (05:32)
[2021-03-23] MEDS: INSULIN LISPRO 100 UNIT/1 ML 3ML VIAL SQ SCH ×3 (06:00→18:04)
[2021-03-23 06:28] LABS: BASOPHILS % 0.2 % (0.0-1.0); EOSINOPHILS # (AUTO) 0.3 (0.0-0.4); EOSINOPHILS % 2.8 % (0.0-6.0); HEMATOCRIT 27.6 % (34.2-44.1); HEMOGLOBIN 8.1 g/dL (12.0-16.0); LYMPHOCYTES # (AUTO) 1.6 (1.0-3.2); LYMPHOCYTES % 13.3 % (18.0-39.1); MEAN CORPUSCULAR HEMOGLOBIN 30.8 pg (28-32); MEAN CORPUSCULAR HGB CONC 29.3 g/dL (31-35); MEAN CORPUSCULAR VOLUME 104.9 fL (81-99); MONOCYTES # (AUTO) 0.5 (0.2-0.8); MONOCYTES % 4.1 % (4.4-11.3); NEUTROPHILS # (AUTO) 9.5 (2.1-6.9); NEUTROPHILS % 77.8 % (38.7-80.0); PLATELET COUNT 167 x10e3/uL (140-360); RED BLOOD COUNT 2.63 x10e6/uL (3.6-5.1); RED CELL DISTRIBUTION WIDTH 17.5 % (11.7-14.4)
[2021-03-23 06:41] LABS: ALBUMIN/GLOBULIN RATIO 0.6 (0.8-2.0); CREATININE, SERUM 0.58 mg/dL (0.57-1.11)
[2021-03-23] MEDS: ASCORBIC ACID 500 MG TAB PO SCH (07:50)
[2021-03-23] MEDS: SPIRONOLACTONE 25 MG TAB PO SCH (07:50)
[2021-03-23] MEDS: ZINC SULFATE 50 MG CAP PO SCH (07:50)
[2021-03-23] MEDS: [UNRECOGNIZED DRUG - OTHER] PO SCH (07:50)
[2021-03-23] MEDS: CHOLECALCIFEROL 1,000 UNIT TAB PO SCH (07:50)
[2021-03-23] MEDS: BALSAM PERU/CASTOR OIL 60 GM OINT...G. TP SCH (07:50)
[2021-03-23] MEDS: TURMERIC ROOT EXTRACT PO SCH (07:50)
[2021-03-23] MEDS: CINNAMON BARK 1000 MG PO SCH (07:50)
[2021-03-23] MEDS: ASCORBIC ACID PO SCH (07:50)
[2021-03-23] MEDS: IRON SUCROSE 100 MG in SODIUM CHLORIDE 0.9% 100 ML 100 ML IV SCH (09:03)
[2021-03-23] MEDS: [UNRECOGNIZED DRUG - OTHER] PO SCH (20:06)
[2021-03-23] MEDS: [UNRECOGNIZED DRUG - OTHER] PO SCH (20:06)
[2021-03-23] MEDS: METOCLOPRAMIDE HCL 10 MG/2ML VIAL IV SCH (23:35)
[2021-03-24] VITALS (9 sets, daily range): BP systolic 124–159; BP diastolic 39–49
[2021-03-24] MEDS: INSULIN GLARGINE 100 UNITS/ML VIAL SQ SCH
[2021-03-24] MEDS: INSULIN LISPRO 100 UNIT/1 ML 3ML VIAL SQ SCH ×4 (06:00→17:50)
[2021-03-24] MEDS: MULTIVITAMINS/MINERALS TAB PO SCH (06:00)
[2021-03-24] MEDS: PIPERACILLIN/TAZOBACTAM 3.375 GM in SODIUM CHLORIDE 0.9% 50ML 50 ML IV SCH ×3 (06:49→22:01)
[2021-03-24] MEDS: DEXTROSE 5%/0.9% SOD CHL 1,000 ML IV SCH ×2 (06:49→16:18)
[2021-03-24] MEDS: METOCLOPRAMIDE HCL 10 MG/2ML VIAL IV SCH ×3 (06:49→17:49)
[2021-03-24] MEDS: TURMERIC ROOT EXTRACT PO SCH (08:19)
[2021-03-24] MEDS: SPIRONOLACTONE 25 MG TAB PO SCH (08:19)
[2021-03-24] MEDS: CINNAMON BARK 1000 MG PO SCH (08:19)
[2021-03-24] MEDS: ASCORBIC ACID 500 MG TAB PO SCH (08:19)
[2021-03-24] MEDS: ASCORBIC ACID PO SCH (08:19)
[2021-03-24] MEDS: [UNRECOGNIZED DRUG - OTHER] PO SCH (08:19)
[2021-03-24] MEDS: ZINC SULFATE 50 MG CAP PO SCH (08:20)
[2021-03-24] MEDS: CHOLECALCIFEROL 1,000 UNIT TAB PO SCH (08:20)
[2021-03-24] MEDS: IRON SUCROSE 100 MG in SODIUM CHLORIDE 0.9% 100 ML 100 ML IV SCH (09:00)
[2021-03-24] MEDS: BALSAM PERU/CASTOR OIL 60 GM OINT...G. TP SCH (09:21)
[2021-03-24] MEDS ORDERED: PROPOFOL IV EMULSION 10 MG/ML 20 ML VIAL ONE (12:34)
[2021-03-24] MEDS ORDERED: LIDOCAINE HCL 2% LOCAL INJ 5 ML SDV VIAL INJ ONE (12:34)
[2021-03-24] MEDS: [UNRECOGNIZED DRUG - OTHER] PO SCH (21:00)
[2021-03-24] MEDS: [UNRECOGNIZED DRUG - OTHER] PO SCH (21:00)
[2021-03-25] VITALS (7 sets, daily range): BP systolic 125–145; BP diastolic 45–60
[2021-03-25] MEDS: METOCLOPRAMIDE HCL 10 MG/2ML VIAL IV SCH ×4 (00:34→17:40)
[2021-03-25] MEDS: INSULIN LISPRO 100 UNIT/1 ML 3ML VIAL SQ SCH ×4 (00:34→17:46)
[2021-03-25] MEDS: INSULIN GLARGINE 100 UNITS/ML VIAL SQ SCH (00:35)
[2021-03-25] MEDS: DEXTROSE 5%/0.9% SOD CHL 1,000 ML IV SCH ×2 (06:30→18:27)
[2021-03-25] MEDS: PIPERACILLIN/TAZOBACTAM 3.375 GM in SODIUM CHLORIDE 0.9% 50ML 50 ML IV SCH ×3 (06:36→21:30)
[2021-03-25] MEDS: MULTIVITAMINS/MINERALS TAB PO SCH (06:36)
[2021-03-25] MEDS: TURMERIC ROOT EXTRACT PO SCH (07:27)
[2021-03-25] MEDS: CINNAMON BARK 1000 MG PO SCH (07:27)
[2021-03-25] MEDS: ASCORBIC ACID PO SCH (07:27)
[2021-03-25] MEDS: [UNRECOGNIZED DRUG - OTHER] PO SCH (07:27)
[2021-03-25] MEDS: ASCORBIC ACID 500 MG TAB PO SCH (08:40)
[2021-03-25] MEDS: SPIRONOLACTONE 25 MG TAB PO SCH (08:40)
[2021-03-25] MEDS: IRON SUCROSE 100 MG in SODIUM CHLORIDE 0.9% 100 ML 100 ML IV SCH (08:40)
[2021-03-25] MEDS: CHOLECALCIFEROL 1,000 UNIT TAB PO SCH (08:40)
[2021-03-25] MEDS: BALSAM PERU/CASTOR OIL 60 GM OINT...G. TP SCH (08:41)
[2021-03-25] MEDS: ZINC SULFATE 50 MG CAP PO SCH (08:41)
[2021-03-25] MEDS: [UNRECOGNIZED DRUG - OTHER] PO SCH (21:00)
[2021-03-25] MEDS: [UNRECOGNIZED DRUG - OTHER] PO SCH (21:00)
[2021-03-26] VITALS (7 sets, daily range): BP systolic 113–168; BP diastolic 49–63
[2021-03-26] MEDS: METOCLOPRAMIDE HCL 10 MG/2ML VIAL IV SCH ×4 (00:28→17:56)
[2021-03-26] MEDS: INSULIN LISPRO 100 UNIT/1 ML 3ML VIAL SQ SCH ×4 (00:29→18:00)
[2021-03-26] MEDS: INSULIN GLARGINE 100 UNITS/ML VIAL SQ SCH (00:29)
[2021-03-26 05:39] LABS: BASOPHILS % 0.2 % (0.0-1.0); EOSINOPHILS # (AUTO) 0.2 (0.0-0.4); EOSINOPHILS % 1.8 % (0.0-6.0); HEMATOCRIT 28.5 % (34.2-44.1); HEMOGLOBIN 8.3 g/dL (12.0-16.0); LYMPHOCYTES # (AUTO) 1.3 (1.0-3.2); LYMPHOCYTES % 13.3 % (18.0-39.1); MEAN CORPUSCULAR HEMOGLOBIN 31.2 pg (28-32); MEAN CORPUSCULAR HGB CONC 29.1 g/dL (31-35); MEAN CORPUSCULAR VOLUME 107.1 fL (81-99); MONOCYTES # (AUTO) 0.4 (0.2-0.8); MONOCYTES % 4.6 % (4.4-11.3); NEUTROPHILS # (AUTO) 7.4 (2.1-6.9); NEUTROPHILS % 78.9 % (38.7-80.0); PLATELET COUNT 117 x10e3/uL (140-360); RED BLOOD COUNT 2.66 x10e6/uL (3.6-5.1); RED CELL DISTRIBUTION WIDTH 19.6 % (11.7-14.4)
[2021-03-26] MEDS: MULTIVITAMINS/MINERALS TAB PO SCH (05:59)
[2021-03-26] MEDS: PIPERACILLIN/TAZOBACTAM 3.375 GM in SODIUM CHLORIDE 0.9% 50ML 50 ML IV SCH ×3 (05:59→22:00)
[2021-03-26 06:18] LABS: ANION GAP 9.2 mmol/L (8-16); CALCIUM 7.6 mg/dL (8.4-10.2); POTASSIUM 4.2 mmol/L (3.5-5.1)
[2021-03-26 06:39] LABS: CREATININE, SERUM 0.53 mg/dL (0.57-1.11)
[2021-03-26] MEDS: DEXTROSE 5%/0.9% SOD CHL 1,000 ML IV SCH ×2 (08:10→21:30)
[2021-03-26] MEDS: SPIRONOLACTONE 25 MG TAB PO SCH (09:00)
[2021-03-26] MEDS: IRON SUCROSE 100 MG in SODIUM CHLORIDE 0.9% 100 ML 100 ML IV SCH (09:00)
[2021-03-26] MEDS: TURMERIC ROOT EXTRACT PO SCH (09:00)
[2021-03-26] MEDS: ASCORBIC ACID PO SCH (09:00)
[2021-03-26] MEDS: CINNAMON BARK 1000 MG PO SCH (09:00)
[2021-03-26] MEDS: ASCORBIC ACID 500 MG TAB PO SCH (09:00)
[2021-03-26] MEDS: BALSAM PERU/CASTOR OIL 60 GM OINT...G. TP SCH (09:00)
[2021-03-26] MEDS: ZINC SULFATE 50 MG CAP PO SCH (09:00)
[2021-03-26] MEDS: CHOLECALCIFEROL 1,000 UNIT TAB PO SCH (09:00)
[2021-03-26] MEDS: [UNRECOGNIZED DRUG - OTHER] PO SCH (09:00)
[2021-03-26 09:17] LABS: EOSINOPHILS % (MANUAL) 1 % (0-7); LYMPHOCYTES % (MANUAL) 12 % (19-48); MONOCYTES % (MANUAL) 5 % (3.4-9.0); NEUTROPHILS % (MANUAL) 82 % (40-74)
[2021-03-26 09:19] LABS: HYPOCHROMASIA MODERATE; PLATELET ESTIMATE SLIGHTLY DECREASED; PLATELET MORPHOLOGY COMMENT NORMAL; RBC MORPHOLOGY COMMENT NORMAL
[2021-03-26] MEDS ORDERED: FUROSEMIDE INJ 10 MG/ML 4 ML VIAL IV ONE (11:30)
[2021-03-26] MEDS: [UNRECOGNIZED DRUG - OTHER] PO SCH (21:00)
[2021-03-26] MEDS: [UNRECOGNIZED DRUG - OTHER] PO SCH (21:00)
[2021-03-26] MEDS ORDERED: IRON SUCROSE 100 MG in SODIUM CHLORIDE 0.9% 100 ML 100 ML IV SCH (21:00)
[2021-03-27] VITALS: BP 166/51
[2021-03-27] MEDS: INSULIN GLARGINE 100 UNITS/ML VIAL SQ SCH
[2021-03-27 01:41] LABS: ANION GAP 9.3 mmol/L (8-16); CALCIUM 7.7 mg/dL (8.4-10.2); CREATININE, SERUM 0.48 mg/dL (0.57-1.11)
[2021-03-27 01:45] LABS: POTASSIUM 3.3 mmol/L (3.5-5.1)
[2021-03-27 04:00] VITALS: BP 147/53
[2021-03-27] MEDS ORDERED: POTASSIUM CHLORIDE 20 MEQ TAB CR PO ONE (04:15)
[2021-03-27] MEDS: MULTIVITAMINS/MINERALS TAB PO SCH (05:29)
[2021-03-27] MEDS: METOCLOPRAMIDE HCL 10 MG/2ML VIAL IV SCH ×3 (05:29→12:27)
[2021-03-27] MEDS: PIPERACILLIN/TAZOBACTAM 3.375 GM in SODIUM CHLORIDE 0.9% 50ML 50 ML IV SCH ×2 (05:29→13:42)
[2021-03-27] MEDS: INSULIN LISPRO 100 UNIT/1 ML 3ML VIAL SQ SCH ×3 (06:53→12:28)
[2021-03-27 07:00] LABS: ANION GAP 9.7 mmol/L (8-16); CALCIUM 7.2 mg/dL (8.4-10.2); CREATININE, SERUM 0.44 mg/dL (0.57-1.11); POTASSIUM 3.7 mmol/L (3.5-5.1)
[2021-03-27] MEDS: TURMERIC ROOT EXTRACT PO SCH (09:00)
[2021-03-27] MEDS: [UNRECOGNIZED DRUG - OTHER] PO SCH (09:00)
[2021-03-27] MEDS: ASCORBIC ACID PO SCH (09:00)
[2021-03-27] MEDS: CINNAMON BARK 1000 MG PO SCH (09:00)
[2021-03-27 09:07] VITALS: BP 154/51
[2021-03-27] MEDS: CHOLECALCIFEROL 1,000 UNIT TAB PO SCH (10:09)
[2021-03-27] MEDS: DEXTROSE 5%/0.9% SOD CHL 1,000 ML IV SCH (10:09)
[2021-03-27] MEDS: BALSAM PERU/CASTOR OIL 60 GM OINT...G. TP SCH (10:09)
[2021-03-27] MEDS: SPIRONOLACTONE 25 MG TAB PO SCH (10:09)
[2021-03-27] MEDS: ZINC SULFATE 50 MG CAP PO SCH (10:09)
[2021-03-27] MEDS: ASCORBIC ACID 500 MG TAB PO SCH (10:09)
[2021-03-27 10:10] VITALS: BP 154/51
[2021-03-27 12:22] VITALS: BP 153/51
== END 2021-03-27 14:16 | DRG 394 ==
LOC: ER 23:50 → ERHOLD 03-18 03:01 → MED/SURG 03-18 04:20
PROVIDERS: ADMIT Internal Medicine; ATTEND Internal Medicine
PROC: 0DH68UZ Insertion of Feeding Device into Stomach, Via Natural or Artificial Opening Endoscopic (ICD-10-PCS; principal; 2021-03-19 10:30)
PROC: 0DB68ZX Excision of Stomach, Via Natural or Artificial Opening Endoscopic, Diagnostic (ICD-10-PCS; 2021-03-19 10:30)
PROC: 0DH68UZ Insertion of Feeding Device into Stomach, Via Natural or Artificial Opening Endoscopic (ICD-10-PCS; 2021-03-24)
DX: K94.21 Gastrostomy hemorrhage (principal); I69.351 Hemiplegia and hemiparesis following cerebral infarction affecting right dominant side; D62 Acute posthemorrhagic anemia; N17.9 Acute kidney failure, unspecified; K31.6 Fistula of stomach and duodenum; Z68.41 Body mass index [BMI] 40.0-44.9, adult; J44.9 Chronic obstructive pulmonary disease, unspecified; K94.23 Gastrostomy malfunction; D72.829 Elevated white blood cell count, unspecified; I69.398 Other sequelae of cerebral infarction; I10 Essential (primary) hypertension; I25.2 Old myocardial infarction; I69.320 Aphasia following cerebral infarction; I25.10 Atherosclerotic heart disease of native coronary artery without angina pectoris; E66.9 Obesity, unspecified; I69.391 Dysphagia following cerebral infarction; F03.90 Unspecified dementia, unspecified severity, without behavioral disturbance, psychotic disturbance, mood disturbance, and anxiety; L89.152 Pressure ulcer of sacral region, stage 2; K29.70 Gastritis, unspecified, without bleeding; K44.9 Diaphragmatic hernia without obstruction or gangrene; Z88.5 Allergy status to narcotic agent; Z88.2 Allergy status to sulfonamides; Z88.8 Allergy status to other drugs, medicaments and biological substances; Z91.041 Radiographic dye allergy status; Z99.81 Dependence on supplemental oxygen
CPT/HCPCS: 36415; 43239; 43246; 71045; 74150; 76705; 80048; 80053; 81001; 82390; 82550; 82553; 82607; 82746; 82948; 83540; 83605; 83735; 83880; 84466; 84484; 85014; 85018; 85025; 85610; 85730; 86039; 86255; 86850; 86900; 86920; 87040; 87086; 88305; 88312; 93005; 94640; 94799; 96360; 97139; 99251; 99284; J1756; J1815; J1940; J2001; J2543; J2765; J7030; J7042; J7050; P9016; U0002

== ENCOUNTER 2021-05-16 16:56 | Emergency (ER) | payer MEDICARE ==
[~2021-05-16] VITALS: Ht 154.9 cm; Wt 101.2 kg
[2021-05-16] MEDS ORDERED: PIPERACILLIN/TAZOBACTAM 3.375 GM in SODIUM CHLORIDE 0.9% 50ML 50 ML IV SCH (17:20)
[2021-05-16 18:04] LABS: BASOPHILS % 0.4 % (0.0-1.0); EOSINOPHILS # (AUTO) 0.2 (0.0-0.4); EOSINOPHILS % 2.2 % (0.0-6.0); HEMOGLOBIN 13.5 g/dL (12.0-16.0); LYMPHOCYTES # (AUTO) 1.7 (1.0-3.2); LYMPHOCYTES % 18.5 % (18.0-39.1); MEAN CORPUSCULAR HEMOGLOBIN 29.3 pg (28-32); MEAN CORPUSCULAR HGB CONC 32.9 g/dL (31-35); MEAN CORPUSCULAR VOLUME 88.9 fL (81-99); MONOCYTES # (AUTO) 0.7 (0.2-0.8); MONOCYTES % 7.9 % (4.4-11.3); NEUTROPHILS # (AUTO) 6.4 (2.1-6.9); NEUTROPHILS % 70.4 % (38.7-80.0); PLATELET COUNT 221 x10e3/uL (140-360); RED BLOOD COUNT 4.61 x10e6/uL (3.6-5.1); RED CELL DISTRIBUTION WIDTH 16.3 % (11.7-14.4)
[2021-05-16 18:21] LABS: ALANINE AMINOTRANSFERASE 16 IU/L (0-55); ALBUMIN 2.6 g/dL (3.5-5.0); ALBUMIN/GLOBULIN RATIO 0.7 (0.8-2.0); ALKALINE PHOSPHATASE 66 IU/L (40-150); ANION GAP 12.3 mmol/L (8-16); BLOOD UREA NITROGEN 21 mg/dL (7-26); BUN/CREATININE RATIO 34 (6-25); CARBON DIOXIDE 28 mmol/L (22-29); CHLORIDE 98 mmol/L (98-107); CREATININE, SERUM 0.61 mg/dL (0.57-1.11); EST GLOMERULAR FILTRATION RATE 94 ML/MIN (60-); GLUCOSE 310 mg/dL (74-118); POTASSIUM 4.3 mmol/L (3.5-5.1); SODIUM 134 mmol/L (136-145)
[2021-05-16 18:22] LABS: CREATINE KINASE < 7 IU/L (29-168)
[2021-05-16] MEDS ORDERED: ACETAMINOPHEN 325 MG/10 ML UDC PEG STA (19:32)
== END 2021-05-16 20:19 | disposition home or self-care (01) ==
LOC: ER 17:34
DX: L03.311 Cellulitis of abdominal wall (principal); Z93.1 Gastrostomy status; E11.65 Type 2 diabetes mellitus with hyperglycemia; I10 Essential (primary) hypertension; E78.5 Hyperlipidemia, unspecified; K21.9 Gastro-esophageal reflux disease without esophagitis; D64.9 Anemia, unspecified; Z20.822 Contact with and (suspected) exposure to COVID-19; I25.2 Old myocardial infarction; Z95.5 Presence of coronary angioplasty implant and graft; Z86.73 Personal history of transient ischemic attack (TIA), and cerebral infarction without residual deficits
CPT/HCPCS: 36415; 80053; 82550; 82553; 83605; 84484; 85025; 87040; 93005; 99284; J2543; U0002

== ENCOUNTER 2021-05-28 13:45 | Emergency (ER) | payer MEDICARE ==
[~2021-05-28] VITALS: Ht 154.9 cm; Wt 101.2 kg
[2021-05-28] MEDS ORDERED: SODIUM CHLORIDE 0.9% 1000ML 1,000 ML IV ONE (14:30)
[2021-05-28 14:32] LABS: BASOPHILS # (AUTO) 0.1 (0.0-0.1); BASOPHILS % 0.3 % (0.0-1.0); EOSINOPHILS % 0.2 % (0.0-6.0); HEMATOCRIT 44.5 % (34.2-44.1); HEMOGLOBIN 14.6 g/dL (12.0-16.0); LYMPHOCYTES # (AUTO) 2.3 (1.0-3.2); LYMPHOCYTES % 12.4 % (18.0-39.1); MEAN CORPUSCULAR HEMOGLOBIN 29.2 pg (28-32); MEAN CORPUSCULAR HGB CONC 32.8 g/dL (31-35); MONOCYTES # (AUTO) 1.2 (0.2-0.8); MONOCYTES % 6.7 % (4.4-11.3); NEUTROPHILS # (AUTO) 14.4 (2.1-6.9); NEUTROPHILS % 79.8 % (38.7-80.0); PLATELET COUNT 236 x10e3/uL (140-360); RED CELL DISTRIBUTION WIDTH 16.6 % (11.7-14.4)
[2021-05-28 14:50] LABS: ALBUMIN 2.4 g/dL (3.5-5.0); ALBUMIN/GLOBULIN RATIO 0.5 (0.8-2.0); ANION GAP 11.8 mmol/L (8-16); CALCIUM 10.1 mg/dL (8.4-10.2); CREATININE, SERUM 0.69 mg/dL (0.57-1.11); POTASSIUM 4.8 mmol/L (3.5-5.1)
[2021-05-28 15:09] LABS: CLARITY,URINE CLEAR (CLEAR); COLOR,URINE AMBER (YELLOW); KETONES,URINE NEGATIVE (NEGATIVE); LEUKOCYTE ESTERASE ,URINE NEGATIVE (NEGATIVE); NITRITE,URINE NEGATIVE (NEGATIVE); PROTEIN,URINE DIPSTICK 2+ (NEGATIVE); URINE UROBILINOGEN 0.2 mg/dL (0.2 - 1)
[2021-05-28 15:22] LABS: AMORPHOUS SEDIMENT,URINE MODERATE (FEW); BACTERIA,URINE MODERATE /HPF; EPITHELIAL CELLS,URINE MODERATE /LPF; HYALINE CASTS 0-1 (0-1)
[2021-05-28 18:38] VITALS: BP 164/59
== END 2021-05-28 18:54 ==
LOC: ER 14:00
DX: E11.65 Type 2 diabetes mellitus with hyperglycemia (principal); I10 Essential (primary) hypertension; E78.5 Hyperlipidemia, unspecified; I48.91 Unspecified atrial fibrillation; K21.9 Gastro-esophageal reflux disease without esophagitis; D64.9 Anemia, unspecified; I25.2 Old myocardial infarction; Z86.73 Personal history of transient ischemic attack (TIA), and cerebral infarction without residual deficits; R94.31 Abnormal electrocardiogram [ECG] [EKG]
CPT/HCPCS: 36415; 71045; 80053; 81001; 82948; 83605; 85025; 87040; 87086; 93005; 99284; J7030

== ENCOUNTER 2021-06-04 01:07 | Emergency (ER) | payer MEDICARE ==
[~2021-06-04] VITALS: Ht 154.9 cm; Wt 101.2 kg
[2021-06-04] MEDS ORDERED: ACETAMINOPHEN 650 MG SUPP PR ONE ×2 (01:27→03:15)
[2021-06-04 01:52] LABS: BASOPHILS % 0.3 % (0.0-1.0); EOSINOPHILS # (AUTO) 0.3 (0.0-0.4); EOSINOPHILS % 2.2 % (0.0-6.0); HEMATOCRIT 45.2 % (34.2-44.1); HEMOGLOBIN 14.8 g/dL (12.0-16.0); LYMPHOCYTES # (AUTO) 3.1 (1.0-3.2); LYMPHOCYTES % 21.4 % (18.0-39.1); MEAN CORPUSCULAR HEMOGLOBIN 28.8 pg (28-32); MEAN CORPUSCULAR HGB CONC 32.7 g/dL (31-35); MEAN CORPUSCULAR VOLUME 88.1 fL (81-99); MONOCYTES # (AUTO) 0.9 (0.2-0.8); MONOCYTES % 6.2 % (4.4-11.3); NEUTROPHILS % 69.3 % (38.7-80.0); PLATELET COUNT 250 x10e3/uL (140-360); RED BLOOD COUNT 5.13 x10e6/uL (3.6-5.1); RED CELL DISTRIBUTION WIDTH 16.1 % (11.7-14.4)
[2021-06-04 01:54] LABS: CLARITY,URINE CLOUDY (CLEAR); COLOR,URINE YELLOW (YELLOW)
[2021-06-04 01:55] LABS: KETONES,URINE NEGATIVE (NEGATIVE); LEUKOCYTE ESTERASE ,URINE TRACE (NEGATIVE); NITRITE,URINE NEGATIVE (NEGATIVE); PROTEIN,URINE DIPSTICK NEGATIVE (NEGATIVE); URINE UROBILINOGEN 0.2 mg/dL (0.2 - 1)
[2021-06-04 02:01] LABS: INR 1.03; PROTHROMBIN TIME 14.4 seconds (11.9-14.5)
[2021-06-04 02:02] LABS: PARTIAL THROMBOPLASTIN TIME 26.7 seconds (23.8-35.5)
[2021-06-04 02:03] LABS: AMORPHOUS SEDIMENT,URINE MANY (FEW); BACTERIA,URINE MANY /HPF; CALCIUM OXALATE CRYSTALS,UR FEW (FEW); EPITHELIAL CELLS,URINE FEW /LPF; RENAL EPITHELIAL CELLS,URINE FEW; TRANSITIONAL EPI CELLS,URINE FEW; WBC,URINE (MAN) >50 /HPF (0-5)
[2021-06-04 02:08] LABS: ALANINE AMINOTRANSFERASE 22 IU/L (0-55); ALBUMIN 2.6 g/dL (3.5-5.0); ALBUMIN/GLOBULIN RATIO 0.7 (0.8-2.0); ALKALINE PHOSPHATASE 64 IU/L (40-150); ANION GAP 14.9 mmol/L (8-16); BLOOD UREA NITROGEN 25 mg/dL (7-26); BUN/CREATININE RATIO 38 (6-25); CALCIUM 9.5 mg/dL (8.4-10.2); CARBON DIOXIDE 27 mmol/L (22-29); CHLORIDE 99 mmol/L (98-107); CREATININE, SERUM 0.65 mg/dL (0.57-1.11); EST GLOMERULAR FILTRATION RATE 87 ML/MIN (60-); GLUCOSE 180 mg/dL (74-118); POTASSIUM 4.9 mmol/L (3.5-5.1); SODIUM 136 mmol/L (136-145)
[2021-06-04] MEDS ORDERED: SODIUM CHLORIDE 0.9% 1000ML 1,000 ML IV STA ×2 (02:13)
[2021-06-04 02:17] LABS: B-TYPE NATRIURETIC PEPTIDE2 191.1 pg/mL (0-100)
[2021-06-04 02:50] LABS: CREATINE KINASE < 7 IU/L (29-168)
[2021-06-04 04:20] VITALS: BP 124/56
== END 2021-06-04 04:46 ==
LOC: ER 01:14
DX: Z43.1 Encounter for attention to gastrostomy (principal); K59.00 Constipation, unspecified; E11.65 Type 2 diabetes mellitus with hyperglycemia; I10 Essential (primary) hypertension; E78.5 Hyperlipidemia, unspecified; K21.9 Gastro-esophageal reflux disease without esophagitis; D64.9 Anemia, unspecified; I48.91 Unspecified atrial fibrillation; I25.2 Old myocardial infarction; Z86.73 Personal history of transient ischemic attack (TIA), and cerebral infarction without residual deficits
CPT/HCPCS: 36415; 71045; 74176; 80053; 81001; 82550; 82553; 83605; 83880; 84484; 85025; 85610; 85730; 87040; 87086; 87186; 99284; J7030